=== PATIENT | male | born 1935 | race Caucasian/White ===

== ENCOUNTER 2017-11-26 13:33 | Emergency (ER) | payer MEDICARE, SELFPAY ==
[2017-11-26 13:34] VITALS: BP 135/66; PULSE 139; RESP 16; TEMP 38.1; O2SAT 92; BMI 27.1
--- NOTE | 2017-11-26 13:59 | EKG12_ITS ---
Test Reason : DYSRHYTHMIA Blood Pressure : / mmHG Vent. Rate : 127 BPM Atrial Rate : 127 BPM P-R Int : 156 ms QRS Dur : 090 ms QT Int : 300 ms P-R-T Axes : 069 066 040 degrees QTc Int : 436 ms Sinus tachycardia Otherwise normal ECG Confirmed by JUAN MIGUEL PEÑA ([id number]), assistant film editor JANELLE PENA ([id number]) on 11/29/2017 1:18:47 PM Referred By: Lisa Robles Confirmed By:JUAN MIGUEL PEÑA
--- NOTE | 2017-11-26 14:02 | RAD_ITS ---
STUDY: X-RAY CHEST REASON FOR EXAM: Male, 82 years old. Diarrhea, vomiting and fever. TECHNIQUE: Single AP portable view of the chest. COMPARISON: CT of the chest dated November 26, 2017. FINDINGS: There is hyperinflation of the lungs consistent with chronic obstructive lung disease (COPD). There is mild prominence of bronchovascular markings. There is no demonstrated pleural abnormality. Normal size heart. Normal mediastinum and lisa. There is prominence of the pulmonary hilar arteries without peripheral pulmonary vascular congestion. There is atherosclerotic calcification of the aortic arch with tortuosity. Normal visualized thoracic spine. Normal visualized ribs, clavicles, and shoulders. There is no demonstrated abnormality of the visualized soft tissue structures of the upper abdomen. RAD/Chest 1 View (Portable) IMPRESSION: No radiographic evidence of acute cardiopulmonary disease. Electronically Signed: Kiki Thacker MD at 15:26 EST , Service support ,
--- NOTE | 2017-11-26 14:03 | ED.VISSUMM ---
- ER Visit Summary Date of Service: 11/26/17 Chief Complaint: Vomiting and diarrhea History of Present Illness: The patient is a 82 M is presenting with vomiting and diarrhea. He states this began around 3 AM. He has had approximately 12 episodes of both vomiting and diarrhea. He denies abdominal pain. Denies blood in his stool or emesis. Denies recent travel or antibiotics. Denies sick contacts. Denies possibility of bad food exposure. Denies chest pain or shortness of breath. He has had subjective fever and chills. Physical Examination: Heart rate 139, temperature 100.5, pulse ox 92% on room air Alert no acute distress. HEENT exam is unremarkable. Neck is supple. Lungs are clear and equal bilaterally. Heart is regular and tachycardic Abdomen is soft nontender nondistended. No guarding or rebound Extremities are unremarkable. Skin is warm and dry. No focal neurologic deficit. Remainder of exam is unremarkable. Emergency Department Course and Treatment: Patient is given IV fluids, Tylenol, Zofran. CBC shows platelet count 138 which is similar to previous. Chemistries unremarkable other than glucose 125. Liver lipase are normal. Urinalysis is unremarkable. Troponin is negative. EKG was sinus tachycardia rate 127. Lactic acid was 2.0. Chest x-ray shows no acute process. After IV fluids patient is feeling much improved. He is able to tolerate p.o. in the emergency department. His repeat heart rate is 100. His abdomen continues to be soft and nontender. He is requesting to go home. He is given a prescription for Zofran. He is advised to follow-up with his primary care physician. He is advised return to ED for any worsening complaints. Disposition: Discharge home Impression: Vomiting and diarrhea This note was generated with [employer] dictation software. It may contain incorrect words, spelling, and punctuation that were not noted in review of the chart prior to signing ED Disposition - Plan for ED Patient: Chief Complaint: Nausea/Vomiting/Diarrhea Referrals: Kelsey Pulido DO [Primary Care Provider] -
[2017-11-26 14:16] LABS: Absolute Lymphocyte Count 0.46 X10^3/ul (0.83-4.51); Absolute Neutrophil Count 9.7 X10^3/uL (2.0-7.7); Eosinophil# 0.01 X10^3/uL; Eosinophils% 0.1 % (0-5); Hematocrit 51.8 % (40-54); Lymphocyte # 0.46 X10^3/ul (4.0); Lymphocyte % 4.4 % (19-41); Mean Corp Hgb Conc 34.7 g/gl (32-36); Mean Corpuscular Hgb 31.9 pg (27.0-32.0); Mean Corpuscular Volume 91.8 fL (80-94); Mean Platelet Vol. 9.9 fl (6.2-12.0); Monocyte# 0.32 X10^3/uL; Monocyte% 3.1 % (0-10); Neutrophil # 9.66 X10^3/uL (2.7-7.7); Neutrophil % 92.2 % (47-70); Platelet Count 138 K/mm3 (150-450); RBC Distribution Width CV 12.9 % (11.6-14.6); RBC Distribution Width SD 42.7 fl (35.1-43.9); Red Blood Count 5.64 M/mm3 (4.6-6.2); White Blood Count 10.5 K/mm3 (4.4-11.0)
[2017-11-26] MEDS: 0.9% Normal Saline 1,000 ML 1000 ML IV (14:17)
[2017-11-26] MEDS: Acetaminophen 500 MG Tablet 1000 MG PO (14:17)
[2017-11-26] MEDS: Ondansetron 4 MG/2 ML Vial IV (14:17)
--- NOTE | 2017-11-26 14:18 | NURSING ---
NO LW OR POA
[2017-11-26 14:20] LABS: Differential Indicated SCAN CRITERIA MET; POSITIVE COUNT NO; POSITIVE DIFFERENTIAL YES; POSITIVE MORPHOLOGY NO
[2017-11-26 14:32] LABS: AST(SGOT) 23 U/L (15-37); Alanine Aminotransfer ALT/SGPT 24 U/L (16-61); Albumin, Serum 3.8 g/dL (3.2-5.0); Alkaline Phosphatase 76 U/L (45-117); Anion Gap 13 (5-15); BUN 17 mg/dL (7-18); BUN/Creat Ratio 13.6 RATIO (10-20); Calcium,Total 8.4 mg/dL (8.5-10.1); Chloride 102 mmol/L (98-107); Creatinine, Serum 1.25 mg/dL (0.70-1.30); EST Glomerular Filtration Rate 59 mL/min (>60); Est Glom Filt Rate - Afr Amer 71 mL/min (>60); Estimated Creatinine Clearance 50.87 ml/min; Globulin 3.7 g/dL (2.2-4.2); Glucose 125 mg/dL (74-106); Lipase 145 U/L (73-393); Potassium 4.1 mmol/L (3.5-5.1); Protein, Total 7.5 g/dL (6.4-8.2); Sodium Level 140 mmol/L (136-145)
[2017-11-26 15:11] LABS: Bacteria 0 SEEN /hpf (None Seen)
[2017-11-26 15:15] LABS: Color, Urine Yellow (Yellow); Glucose, Dipstick Normal (Normal); Ketone-Dipstick 5 mg/dl (Negative); Leukocyte Esterase-Dipstick 25 /ul (Negative); Nitrite-Dipstick Negative (Negative); Occult Blood-Urine 25 /ul (Negative); Protein-Dipstick 30 mg/dl (Negative); Urine Clarity Clear (Clear); Urine Urobilinogen Normal (Normal)
[2017-11-26 15:18] LABS: Urine Bilirubin Dipstick 1 mg/dL (Negative)
[2017-11-26 15:23] LABS: Hyaline Cast 0-5 SEEN /lpf (0-5); Mucous, Urine 3+ /hpf (<or=2+)
[2017-11-26 15:24] LABS: Red Blood Cells-Urine 0-5 SEEN /hpf (0-5); White Blood Cells 0-5 SEEN /hpf (0-5)
[2017-11-26 15:25] LABS: Squamous Epithelial Cells - UA 0-5 SEEN /hpf (0-5)
[2017-11-26 16:34] VITALS: BP 109/56; PULSE 114; RESP 16; O2SAT 94
[2017-11-26] MEDS: 0.9% Normal Saline 1,000 ML 999 ML IV (16:34)
--- NOTE | 2017-11-26 17:10 | ED.DEP ---
ED Disposition - Plan for ED Patient: Chief Complaint: Nausea/Vomiting/Diarrhea Instructions: ED Vomiting Diarrhea Nonspecific Ad Prescriptions: Ondansetron [Zofran Odt] 4 mg PO Q8H PRN PRN #10 tablet PRN Reason: Nausea Referrals: Kelsey Pulido DO [Primary Care Provider] -
[2017-11-26 17:31] VITALS: BP 106/50; PULSE 107; RESP 19; O2SAT 93
[2017-11-26 17:41] VITALS: BP 106/50; PULSE 104; RESP 16; O2SAT 93
[2017-11-26 18:10] LABS: Reflex Lactate? Y
[2017-11-28 16:06] LABS: Pathologist Review Reviewed
== END 2017-11-26 17:42 | disposition home or self-care (01) ==
LOC: ED 14:31
PROVIDERS: Emergency Provider Emergency Medicine; Family Provider Internal Medicine; PCP Internal Medicine
DX: R11.10 Vomiting, unspecified (principal); R19.7 Diarrhea, unspecified; I25.10 Atherosclerotic heart disease of native coronary artery without angina pectoris; I10 Essential (primary) hypertension; E78.00 Pure hypercholesterolemia, unspecified; K21.9 Gastro-esophageal reflux disease without esophagitis; Z79.01 Long term (current) use of anticoagulants; Z79.82 Long term (current) use of aspirin; Z79.899 Other long term (current) drug therapy
CPT/HCPCS: 71045; 80053; 81001; 83605; 83690; 84484; 85025; 93005; 96361; 96374; 99285; J7030; A4216; J2405

== ENCOUNTER → 2017-11-30 10:16 | Outpatient (CLI) | payer MEDICARE, SELFPAY ==
[2017-11-09 09:50] VITALS: BP 112/76; BMI 28.2
--- NOTE | 2017-11-30 10:19 | ECHOD_ITS ---
Reason For Study: PULMONARY ARTERY MASS Procedure This was a 2D Doppler, Color Flow transthoracic echocardiogram. Exam performed in department. Left Ventricle Normal LV size. Left ventricular systolic function is normal. The estimated ejection fraction is 55 %. Transmitral and pulmonary venous doppler flow suggestive of impaired relaxation of left ventricle. No regional wall motion abnormalities noted. Right Ventricle Normal RV size. Normal systolic function. Atria Normal left atrium. Normal right atrium. Mitral Valve Normal mitral valve. Mild (1+) eccentric mitral valve insufficiency. Tricuspid Valve Normal tricuspid valve. Mild (1+) tricuspid valve insufficiency. Pulmonary artery systolic pressure is 26 mmHg. Aortic Valve Normal aortic valve. Trisinus/trileaflet aortic valve. Pulmonic Valve Normal pulmonic valve. Great Vessels Normal aortic root. The pulmonary artery is normal size. Normal inferior vena cava. Pericardium/Pleural No pericardial effusion. MMode/2D Measurements & Calculations LVIDd: 4.5 cm IVSd: 1.1 cm Ao root diam: 3.8 cm LVIDs: 3.0 cm LVPWd: 1.1 cm LA dimension: 3.7 cm RVDd: 3.8 cm FS: 32.9 % LAV(MOD-bp): 39.8 ml EDV(MOD-sp4): 102.2 ml EDV(MOD-sp2): 100.9 ml LAV(MOD-bp) Indexed: 18.7 ml/m2 ESV(MOD-sp4): 48.2 ml EF(MOD-sp2): 52.4 % LAV(MOD-sp2): 34.3 ml EF(MOD-sp4): 52.8 % LAV(MOD-sp4): 43.1 ml SV(MOD-sp4): 54.0 ml SV(MOD-sp2): 52.9 ml LA A4 area: 16.4 cm2 RA A4 area: 14.0 cm2 Doppler Measurements & Calculations MV E max delia: 54.8 cm/sec Ao V2 max: 87.0 cm/sec LV V1 max: 84.2 cm/sec MV A max delia: 56.9 cm/sec Ao max P.0 mmHg LV V1 max P.8 mmHg MV E/A: 0.96 PA V2 max: 130.8 cm/sec PI end-d delia: 108.0 cm/sec TR max delia: 234.8 cm/sec TR max P.1 mmHg Interpretation Summary Normal LV size. Left ventricular systolic function is normal. The estimated ejection fraction is 55 %. Transmitral and pulmonary venous doppler flow suggestive of impaired relaxation of left ventricle Mild (1+) eccentric mitral valve insufficiency. Ordering Physician: Felicita Zhou/Avni Mendozaori Referring Physician: AMADA VENEGAS Performed By: Fern Ramirez, RDCS, RVT
== END ==
PROVIDERS: Family Provider Internal Medicine; PCP Internal Medicine; Visit Provider Physician Assistant Medical
DX: I25.10 Atherosclerotic heart disease of native coronary artery without angina pectoris (principal)
CPT/HCPCS: 93306

== ENCOUNTER → 2018-07-06 10:15 | Outpatient (CLI) | payer MEDICARE, SELFPAY ==
--- NOTE | 2018-07-06 10:18 | RAD_ITS ---
STUDY: X-RAY - PELVIS AND LEFT HIP REASON FOR EXAM: Male, 83 years old. Left hip pain radiating down the back of the upper leg with no known injury. TECHNIQUE: Radiological exam, hip, unilateral, with pelvis when performed; 2 or 3 views. COMPARISON: Hip 09/20/2014, 07/17/2013.. FINDINGS: Osteopenia. Mild low lumbar degenerative disc disease and facet arthropathy. No significant degenerative features of the SI joints. No visible fracture. On the right, there is moderate joint space narrowing, mild acetabular roof and femoral head articular surface sclerosis, minimal superior acetabular corner subcortical cyst formation, minimal joint margin osteophytic lipping. There is a small cortical buttress along the superior margin of the femoral head neck junction giving the femoral head a cam shaped appearance which might be seen in some cases with femoral acetabular impingement. Correlate clinically. On the left, there is mild joint space narrowing, minimal acetabular sclerosis and acetabular corner subcortical cyst formation, mild joint margin osteophytosis. There is a small cortical buttress of the femoral head neck junction superiorly which might be associated with femoral acetabular impingement in some cases. There is no evidence of hip or proximal femur fracture. RAD/HIP, UNI W/ Pelvis 2-3 Views IMPRESSION: Degenerative features of the right and left hip as noted above, of greater degree on the right. Low lumbar degenerative disc disease. Electronically Signed: Toy Phillips, at 18:03 EDT Tel , Service support ,
== END ==
PROVIDERS: Family Provider Nurse Practitioner; PCP Nurse Practitioner; Referring Provider Nurse Practitioner Gerontology; Visit Provider Nurse Practitioner Gerontology
DX: R69 Illness, unspecified (principal)
CPT/HCPCS: 73502

== ENCOUNTER 2018-07-11 10:00 | Outpatient (RCR) | payer MEDICARE, SELFPAY ==
--- NOTE | 2018-07-06 12:25 | HP.PTEVAL ---
Patient's Visit Information PATIENCE MERCEDES is a 83 year old M referred to Physical Therapy by JAYSHREE Drake with a diagnosis of L hip pain. Date of Evaluation: 07/06/18 Physical Therapist: Mike Iyer DPT, OC - Visit Plan Frequency: 2-3x /Week Duration: 4 Weeks Plan: 2-3x/week if needed for up to 4 weeks. Will f/u early next week once patient out of inflammatory phase... if doing much better, then will instruct in strength and f/u . If not improving then do US thermal and DTM to L glut and stretch and see 2-3x/week for 2-4. - Subjective Subjective: L hip went out for no reason. Two days ago L hip just started hurting after cleaning hosta bed, cut some tree tops that morning, came home and sat in chair and it started hurting while sitting. Those activitiesd are not new but not common either. No previous problems with L hip. Called doctor and walked in and had an x ray one hour ago and sent for PT. No meds . Is improving since Tuesday night. Took ibuprofen once. Can walk and get out of car and turn in bed without pain. Pivotting on L hip hurts but walking and squatting are OK. Sleep is good. Can turn and get coffee cup PK. Hesitant to try andything else. Pain is sudden and transient. Retired. Activitesd include working around yard. Has been overly careful the last two days. Basic aDLs are normal. - Pain L hip posterior Pain Intensity (Out of 10): 0 Pain Intensity Range: 0, 5 - Objective L glut tender to palpation up by pelvic attachment. LB AROM mod limited but not painful. Has L antalgic gait slightly. Transfers I and painfree. Hip AROM is symmetrical and without pain, PROM is painfree in rotations and ext, flexion abd. Extension is limited and tight B with 0 degrees acive hip extension, slight pain with extension L. Max tightness in hip flexor and quad, min in HS B. Strength is 4/5 in all hip and knee muscles B and only slight discomfort posteriorly at glut med origin with abd and extension. Hurts most to pivot on L or abduct and step L. - MARCY, - LESLYEIR, -SCOUR to L Hip. Good balance. - Goals Goal 1:: Tenderness to palpation eliminated. Goal Time Frame: 2-4 Weeks Goal 2:: Patient walk without antalgia and pivot/sidestep without pain L hip Goal Time Frame: 2-4 Weeks Goal 3:: Pt feel 100% back to normal Goal Time Frame: 4-6 Weeks - Rehabilitation Potential Physical Therapy Diagnosis: L hip pain likely glut med inflammation. Rehabilitation Potential: Good - Anticipated Interventions Patient/Client Instruction: Educate patient on: Condition, Plan of Care For the Purpose of:: To decrease pain, To improve gait and locomotor functions Therapeutic Exercise to Include: Strength training, Flexibilty training For the Purpose of:: To decrease pain, To improve gait and locomotor functions Manual Therapy Techniques to Include: Massage For the Purpose of:: To decrease pain, To improve nutrient delivery to tissue Ultrasound (thermal/non thermal): Yes - thermal gluts For the Purpose of:: To improve nutrient delivery to tissue Thank you for the opportunity to evaluate your patient. For Medicare and Medicare HMO plans, please review the plan of care and approve it. It will need to be FAXED BACK to us at [phone] for Medicare purposes. Please let me know if there are questions or concerns regarding this plan of care. Physician Signature: Date:
--- NOTE | 2018-09-15 14:33 | HP.PT.NRP ---
HP - Discharge Summary (1) - Patient Information PATIENCE MERCEDES was seen in my office for initial evaluation on 07/06/18. The following Plan of Care was established for this patient: Initial Frequency: 2-3x /Week Initial Duration: 4 Weeks - Anticipated Interventions Patient/Client Instruction: Educate patient on: Condition, Plan of Care For the Purpose of:: To decrease pain, To improve gait and locomotor functions Therapeutic Exercise to Include: Strength training, Flexibilty training For the Purpose of:: To decrease pain, To improve gait and locomotor functions Manual Therapy Techniques to Include: Massage For the Purpose of:: To decrease pain, To improve nutrient delivery to tissue Ultrasound (thermal/non thermal): Yes - thermal gluts For the Purpose of:: To improve nutrient delivery to tissue This patient was last seen in our office 07/11/18. Pertinent comments regarding their Physical therapy will appear below: Pt seen for 2 visits and was doing very well. Was to f/u two weeks later but did not return. At this point it has been over two months and I will disocntinue due to nonattendance. At this point I will be discontinuing this patient from physical therapy. I would be happy to see this patient again in the future if found appropriate by the physician. Thank you! Mike Iyer, DPT, OCS, CSCS
== END 2018-07-11 19:00 | disposition home or self-care (01) ==
LOC: PT 10:00
PROVIDERS: Family Provider Internal Medicine; PCP Nurse Practitioner; Referring Provider Nurse Practitioner Gerontology; Visit Provider Nurse Practitioner Gerontology
DX: M25.552 Pain in left hip (principal); S79.9 Unspecified injury of hip and thigh; R69 Illness, unspecified
CPT/HCPCS: 73502; 97110; 97162; 97530

== ENCOUNTER 2019-01-02 09:20 | Emergency (ER) | payer MEDICARE, SELFPAY ==
[2019-01-02 09:20] VITALS: BMI 28.2
[2019-01-02 09:21] VITALS: BP 112/58; PULSE 134; RESP 15; TEMP 37.3; O2SAT 96; BMI 28.5
--- NOTE | 2019-01-02 09:53 | CT_ITS ---
STUDY: CT ABDOMEN AND PELVIS WITH CONTRAST REASON FOR EXAM: Male, 83 years old. Nausea vomiting and diarrhea. RADIATION DOSAGE (If Supplied By Facility): CTDIvol = ( 15.61 ) mGy, DLP = ( 1077.31 ) mGycm TECHNIQUE: Transaxial images were obtained from the dome of the diaphragm to the symphysis pubis without oral contrast. 100ML IV Isovue 300 was administered. Sagittal and coronal images were reconstructed. Individualized dose optimization techniques were used for this CT. COMPARISON: Comparison is made with prior study dated November 25, 2011. FINDINGS: The visualized lung bases are unremarkable. The visualized portions of the heart are within normal limits. Multiple small cysts are seen in the liver. Once again, there is a 1.2 cm x 2 cm area of increased vascularity in the posterior aspect of the right lobe liver superiorly. This most likely represents an hemangioma. The patient is status post cholecystectomy. There are multiple benign calcified granulomata of the spleen. Normal pancreas. Normal bilateral adrenal glands. Normal right kidney. There is a 1.8 cm cyst in the lateral posterior aspect of the left kidney. There is also evidence of a 4 cm cyst in the inferior lateral portion of the left kidney. Parapelvic cysts are stable. Moderate sized hiatal hernia. Normal small intestine. Diffuse colonic diverticulosis. The appendix is visualized and appears normal. There is diffuse atherosclerotic calcification of the abdominal aorta, without a demonstrated aneurysm. Normal inferior vena cava. Normal retroperitoneum. Normal urinary bladder. There is enlargement of the prostate gland. It measures 4 cm x 4.8 cm. There is a right-sided inguinal hernia containing adipose tissue. There is a 2.2 cm x 2.1 cm slightly ill-defined hypodense nodule in the right inguinal region. This was not present on prior study. Clinical correlation is recommended. There are diffuse degenerative changes of the visualized lumbar spine. CT/Abdomen/Pelvis W IV Cont ONLY IMPRESSION: Diffuse colonic diverticulosis. Stable bilateral renal cysts. Stable hepatic cysts and possible hemangioma in the right lobe of the liver. 2.2 cm x 2.1 cm irregular hypodense nodule in the right inguinal region. Electronically Signed: Ganesh Kent, at 11:20 EDT , Service support ,
--- NOTE | 2019-01-02 09:58 | EKG12_ITS ---
Test Reason : NAUSEA Blood Pressure : / mmHG Vent. Rate : 126 BPM Atrial Rate : 126 BPM P-R Int : 146 ms QRS Dur : 092 ms QT Int : 306 ms P-R-T Axes : 064 070 046 degrees QTc Int : 443 ms Sinus tachycardia Otherwise normal ECG Confirmed by JUAN MIGUEL PEÑA ([id number]), editor trade journal BERTA VANCE ([id number]) on 01/05/2019 11:14:47 AM Referred By: IRISH Confirmed By:JUAN MIGUEL PEÑA
[2019-01-02] MEDS: 0.9% Normal Saline 1,000 ML 1000 ML IV (10:12)
[2019-01-02] MEDS: Ondansetron 4 MG/2 ML Vial IV (10:12)
[2019-01-02 10:17] LABS: Absolute Lymphocyte Count 0.45 X10^3/ul (0.83-4.51); Absolute Neutrophil Count 8.2 X10^3/uL (2.0-7.7); Basophil# 0.01 X10^3/uL; Basophil% 0.1 % (0-1); Hematocrit 50.9 % (40-54); Hemoglobin 17.7 g/dl (13.0-16.5); Lymphocyte # 0.45 X10^3/ul (4.0); Mean Corp Hgb Conc 34.8 g/gl (32-36); Mean Corpuscular Hgb 31.9 pg (27.0-32.0); Mean Corpuscular Volume 91.7 fL (80-94); Mean Platelet Vol. 9.9 fl (6.2-12.0); Monocyte% 3.3 % (0-10); Neutrophil # 8.19 X10^3/uL (2.7-7.7); Neutrophil % 91.5 % (47-70); Platelet Count 125 K/mm3 (150-450); RBC Distribution Width SD 43.4 fl (35.1-43.9); Red Blood Count 5.55 M/mm3 (4.6-6.2)
[2019-01-02 10:22] LABS: Differential Indicated SCAN CRITERIA MET; POSITIVE COUNT NO; POSITIVE DIFFERENTIAL YES; POSITIVE MORPHOLOGY NO
[2019-01-02 10:31] LABS: ALB/GLOB Ratio 1.1 RATIO (0.9-2.4); AST(SGOT) 19 U/L (15-37); Alanine Aminotransfer ALT/SGPT 25 U/L (16-61); Albumin, Serum 3.6 g/dL (3.2-5.0); Alkaline Phosphatase 64 U/L (45-117); Anion Gap 4 (5-15); BUN 19 mg/dL (7-18); Calcium,Total 8.2 mg/dL (8.5-10.1); Chloride 107 mmol/L (98-107); Creatinine, Serum 1.27 mg/dL (0.70-1.30); EST Glomerular Filtration Rate 58 mL/min (>60); Est Glom Filt Rate - Afr Amer 70 mL/min (>60); Estimated Creatinine Clearance 49.22 ml/min; Globulin 3.4 g/dL (2.2-4.2); Glucose 131 mg/dL (74-106); Lipase 84 U/L (73-393); Sodium Level 140 mmol/L (136-145)
--- NOTE | 2019-01-02 10:33 | ED.DCSUM_ITS ---
- ER Visit Summary Date of Service: 01/02/19 Chief Complaint: Vomiting and diarrhea History of Present Illness: The patient is a 83 M who woke up today around midnight and had vomiting and diarrhea. It was nonbloody. He felt nauseated and his says he was pale. No history of this. He was doing well prior to this. Nothing seems to bring it on. No sick contacts. No other associated symptoms. He does have a history of hiatal hernia and hernia repair which was 2 years ago. He takes aspirin but no other blood thinners. No fevers. No travel. No antibiotics. Physical Examination: Afebrile and vital signs unremarkable except for heart rate of 134. The patient is alert and oriented and does not appear to be in any distress. Heart is tachycardic but regular. Lungs are clear. Abdomen is soft and nontender. No distention, guarding, or rebound. Skin appears normal without jaundice or pallor. Test Results: EKG showed sinus rhythm at a rate of 126. No signs of acute ischemia or infarction pattern. Laboratory studies, urinalysis, and CT are pending. Emergency Department Course and Treatment: Patient treated with Zofran and a fluid bolus while awaiting notes. Will reassess. Repeat heart rate was 107. Patient had no pain. No further vomiting or diarrhea. Otherwise his vitals were normal. Hemoglobin 17.7 and platelets stable at 125. Glucose 131 and BUN 19. Hepatic panel and lipase were normal. Urinalysis was unremarkable. CT showed diverticulosis, stable renal and hepatic cysts. He does have a right inguinal nodule of unclear significance. I do not believe it is related to his symptoms right now. Patient is feeling better and has a reassuring exam and findings. I believe he is appropriate for outpatient care. He will be given a course of Zofran. Follow-up with his PCP doctor for recheck and follow-up. Return for any new or worsening issues. Treatment Plan: As above Disposition: Discharge Impression: 1. Vomiting and diarrhea 2. Right inguinal nodule This note was generated with [employer] dictation software. It may contain incorrect words, spelling, and punctuation that were not noted in review of the chart prior to signing ED Disposition - Plan for ED Patient: Referrals: Lisa Robles, MANAS-C [Primary Care Provider] -
[2019-01-02 10:34] LABS: Color, Urine Yellow (Yellow); Glucose, Dipstick Normal (Normal); Ketone-Dipstick 5 mg/dl (Negative); Leukocyte Esterase-Dipstick 25 /ul (Negative); Nitrite-Dipstick Negative (Negative); Occult Blood-Urine 25 /ul (Negative); Protein-Dipstick 30 mg/dl (Negative); Urine Clarity Sl. Cloudy (Clear); Urine Urobilinogen Normal (Normal)
[2019-01-02 10:37] LABS: Urine Bilirubin Dipstick 1 mg/dL (Negative)
[2019-01-02 10:39] LABS: Red Blood Cells-Urine 0-5 SEEN /hpf (0-5); Squamous Epithelial Cells - UA 0-5 SEEN /hpf (0-5); White Blood Cells 0-5 SEEN /hpf (0-5)
[2019-01-02 10:40] LABS: Bacteria RARE /hpf (None Seen); Mucous, Urine 2+ /hpf (<or=2+)
[2019-01-02 10:55] VITALS: BP 123/60; PULSE 111; RESP 16; TEMP 37.2; O2SAT 94
[2019-01-02 11:25] VITALS: BP 121/75; PULSE 114; RESP 16; TEMP 37.2; O2SAT 97
[2019-01-02 11:26] VITALS: BP 121/75; PULSE 114; RESP 16; O2SAT 97
--- NOTE | 2019-01-02 12:05 | ED.DEP ---
ED Disposition - Plan for ED Patient: Instructions: ED Diet Vomiting Diarrhea Prescriptions: Ondansetron [Zofran Odt] 4 mg PO Q8H PRN PRN #10 tablet PRN Reason: Nausea Ondansetron [Zofran Odt] 4 mg PO Q8H PRN PRN #10 tab PRN Reason: Nausea Referrals: Lisa Robles, ASSISTIVE TECHNOLOGY TRAINER-C [Primary Care Provider] -
[2019-01-02 12:20] VITALS: PULSE 108; RESP 15; O2SAT 96
== END 2019-01-02 12:22 | disposition home or self-care (01) ==
LOC: ED 09:59
PROVIDERS: Emergency Provider Emergency Medicine; Family Provider Nurse Practitioner; PCP Nurse Practitioner
DX: R11.10 Vomiting, unspecified (principal); R19.7 Diarrhea, unspecified; R19.09 Other intra-abdominal and pelvic swelling, mass and lump; I25.10 Atherosclerotic heart disease of native coronary artery without angina pectoris; I10 Essential (primary) hypertension; Z79.82 Long term (current) use of aspirin; Z79.899 Other long term (current) drug therapy
CPT/HCPCS: 74177; 80053; 81001; 83690; 85025; 93005; 96361; 96374; 99283; J7030; Q9967; A4216; J2405

== ENCOUNTER → 2019-05-24 09:48 | Outpatient (CLI) | payer MEDICARE, SELFPAY ==
[2019-05-24 09:16] VITALS: BMI 26.7
[2019-05-24 10:43] LABS: AST(SGOT) 23 U/L (15-37); Alanine Aminotransfer ALT/SGPT 23 U/L (16-61); Albumin, Serum 3.5 g/dL (3.2-5.0); Alkaline Phosphatase 79 U/L (45-117); Bilirubin, Direct 0.13 mg/dL (0.00-0.30); Cholesterol 112 mg/dL (200); Globulin 3.9 g/dL (2.2-4.2); High Density Lipoprotein 31 mg/dL; Protein, Total 7.4 g/dL (6.4-8.2); Triglycerides 169 mg/dL; Very Low Density Lipoprotein 34 mg/dL (5-40)
== END ==
PROVIDERS: Family Provider Internal Medicine; PCP Internal Medicine; Referring Provider Internal Medicine Cardiovascular Disease; Visit Provider Internal Medicine Cardiovascular Disease
DX: E78.5 Hyperlipidemia, unspecified (principal)
CPT/HCPCS: 36415; 80061; 80076

== ENCOUNTER → 2020-05-20 09:00 | Outpatient (CLI) | payer MEDICARE, SELFPAY ==
[2019-05-24 09:16] VITALS: BMI 26.7
[2020-05-20 10:07] LABS: AST(SGOT) 29 U/L (15-37); Alanine Aminotransfer ALT/SGPT 24 U/L (16-61); Albumin, Serum 3.4 g/dL (3.2-5.0); Alkaline Phosphatase 71 U/L (45-117); Bilirubin, Direct 0.14 mg/dL (0.00-0.30); Cholesterol 116 mg/dL (200); Globulin 3.5 g/dL (2.2-4.2); High Density Lipoprotein 32 mg/dL; Protein, Total 6.9 g/dL (6.4-8.2); Triglycerides 141 mg/dL; Very Low Density Lipoprotein 28 mg/dL (5-40)
== END ==
PROVIDERS: PCP Internal Medicine; Referring Provider Internal Medicine Cardiovascular Disease; Visit Provider Internal Medicine Cardiovascular Disease
DX: E78.5 Hyperlipidemia, unspecified (principal)
CPT/HCPCS: 36415; 80061; 80076

== ENCOUNTER → 2020-06-18 06:48 | Outpatient (CLI) | payer MEDICARE, SELFPAY ==
[2020-05-27 10:25] VITALS: BMI 28.3
--- NOTE | 2020-06-18 06:48 | ECHOD_ITS ---
Reason For Study: Murmur Procedure This was a 2D Doppler, Color Flow transthoracic echocardiogram. Exam performed in department. Left Ventricle Normal LV size. Left ventricular systolic function is normal. The estimated ejection fraction is 60 %. Stage 1 diastolic dysfunction. No regional wall motion abnormalities noted. Right Ventricle Normal RV size. Normal systolic function. Atria Normal left atrium. Normal right atrium. Mitral Valve There is mild mitral annular calcification. Mild (1+) mitral valve insufficiency. Tricuspid Valve Normal tricuspid valve. Aortic Valve Normal aortic valve. Trisinus/trileaflet aortic valve. Pulmonic Valve Normal pulmonic valve. Great Vessels Normal aortic root. The pulmonary artery is normal size. Normal inferior vena cava. Pericardium/Pleural No pericardial effusion. MMode/2D Measurements & Calculations LVIDd: 3.3 cm IVSd: 1.7 cm Ao root diam: 3.7 cm LVIDs: 2.4 cm LVPWd: 1.3 cm LA dimension: 3.6 cm RVDd: 3.7 cm FS: 28.7 % LAV(MOD-bp): 46.6 ml LA A4 area: 17.1 cm2 RA A4 area: 19.8 cm2 LAV(MOD-bp) Indexed: 21.6 ml/m2 LAV(MOD-sp2): 46.4 ml LAV(MOD-sp4): 46.7 ml Time Measurements MV dec time: 0.19 sec Doppler Measurements & Calculations MV E max alexander: 41.7 cm/sec Lat Peak E' Alexander: 5.4 cm/sec Med Peak E' Alexander: 3.7 cm/sec MV A max alexander: 76.7 cm/sec E/E' lat: 7.7 E/E' med: 11.3 MV E/A: 0.54 MV V2 max: 81.5 cm/sec MV P1/2t max alexander: 51.1 cm/sec Ao V2 max: 63.4 cm/sec MV max P.7 mmHg MV P1/2t: 63.1 msec Ao max P.6 mmHg MV V2 mean: 42.1 cm/sec MV dec slope: 237.5 cm/sec2 MV mean P.89 mmHg MVA(P1/2t): 3.5 cm2 MV V2 VTI: 13.9 cm LV V1 max: 79.6 cm/sec MR max alexander: 498.7 cm/sec PA V2 max: 80.9 cm/sec LV V1 max P.5 mmHg MR max P.5 mmHg TR max alexander: 230.6 cm/sec TR max P.3 mmHg Interpretation Summary Normal LV size. Left ventricular systolic function is normal. The estimated ejection fraction is 60 %. Stage 1 diastolic dysfunction. Mild (1+) mitral valve insufficiency. There is mild mitral annular calcification. Ordering Physician: Avni Kaur Referring Physician: Lisa Robles Performed By: Johnie Plata RCS
--- NOTE | 2020-06-18 17:15 | STRESSREP ---
Stress Test Report Exercise myocardial perfusion stress test. 85-year-old man with a history of coronary artery disease. Stress protocol: Resting EKG demonstrates normal sinus rhythm with a rate of 77 bpm resting blood pressure is 130/78 mmHg. The patient exercised according to regular Evan protocol for total duration of 5 minutes and 30 seconds completing 2 minutes and 30 seconds into stage II of the Evan protocol. The maximum heart rate attained was 148 bpm which was 108% of max impacted heart rate the maximum workload was 7 metabolic equivalents. At rest there were no ST or T wave changes noted to suggest ischemia at peak exercise upsloping ST changes only were noted with no meet the criteria for ischemia. No clinical angina was noted the test was terminated due to shortness of breath. Myocardial perfusion protocol. 11.8 mCi of technetium 99m sestamibi was injected at rest. The patient exercised for 5-1/2 minutes and at peak exercise 33.4 mCi of technetium 99m sestamibi was injected stress images were obtained stress and rest images were reconstructed and compared in the short axis vertical long horizontal long axis. Gated images were also obtained. Perfusion SPECT analysis: Review of the images demonstrate normal uptake of tracer noted in all areas of the myocardium the resting images similar demonstrate normal uptake of tracer noted in all areas of the myocardium. No areas of reversibility are noted to suggest ischemia no previous infarct is noted. Gated SPECT analysis: The gated ejection fraction is noted to be 71%. Conclusion: Normal exercise myocardial perfusion stress test at a moderate workload. Preserved ejection fraction.
== END ==
PROVIDERS: PCP Nurse Practitioner; Referring Provider Internal Medicine Cardiovascular Disease; Visit Provider Internal Medicine Cardiovascular Disease
DX: I25.10 Atherosclerotic heart disease of native coronary artery without angina pectoris (principal)
CPT/HCPCS: 78452; 93017; 93306; A9500; A4216

== ENCOUNTER 2021-03-25 11:12 | Outpatient (RCR) | payer MEDICARE, SELFPAY ==
[2020-05-27 10:25] VITALS: BMI 28.3
--- NOTE | 2021-03-25 11:48 | HP.PTEVAL_ITS ---
Patient's Visit Information PATIENCE MERCEDES is a 86 year old M referred to Physical Therapy by JAYSHREE Orr with a diagnosis of vertigo. Date of Evaluation: 03/25/21 Physical Therapist: Mike Iyer, DPT, OCS, CSCS - Visit Plan Plan: No obvious signs of positonal or vestibular component to his vertigo. I recommend back to doctor for next medical step. Pt will contact doctor in next couple days for appointment and recommendations. He is to contact me if the characterization of his signs and symptoms changes for recheck. No skilled therapy recommended at this time. - Subjective Dizzy sometimes. Started 2 months ago insidiouslyafter cataracts operation. Since then has intermittent dizzyness. Now bending down, standing up, it can casue this for for short durations. feels pretty normal in between episodes. Not sleeping good. Not sure why, tries ibuprofen to relax mind, maybe anxious. No falls , no balance problem, no neuropathy. sees foot doctor and he clips toenails, harder to feel today though. Basic ADLS are normal. Hobbies : none, enjoys walking and still does that one mile. Not employed. - Objective Walks normal without AD into and out of PT, no evidence of imbalance. Trasnfers normal without UE. steps reciprocal without a rail. cervical aROM WFL and without symptoms or pain. UE AROM WNL, strength 4- and symetrical. Sensation UE WNL to gross light touch. LE slightly at deficit distally. Balance seems very good. Romberg eo and ec 30+ seconds. - B hallpike daljit tests, - roll test, no nystagmus or dizzyness. No MSQ positions casuie dizzyness today, I am unable to ellicit it. Oculomotor is unremarkable: no nystgmus with gaze or head shake. ocular tilt and skew eye deviation are normal. - head thrust. Pursuit and saccades appear normal with out symptoms. VOR horiz and vertical is normal without symptoms. No facial paralysis obvious, no evidence of problems with taste or smell. OVERALL, PT IS WITHOUT SYMPTOMS TODAY AND I AM UNABLE TO ELLICIT THEM. NO OBVIIOUS SIGNS OF BPPV OR VESTIBULAR DYSFUNCTION TODAY. - Balance Scores Functional Gait Assessment Score: 28 % Disability: 6.6700 - Rehabilitation Potential Physical Therapy Diagnosis: No evidence of vestibular component - Anticipated Interventions Thank you for the opportunity to evaluate your patient. For Medicare and Medicare HMO plans, please review the plan of care and approve it. It will need to be FAXED BACK to us at [phone] for Medicare purposes. For Medicare only, by signing this I certify the plan of care. Please let me know if there are questions or concerns regarding this plan of care. Physician Signature: Date:____
== END 2021-03-25 19:00 | disposition home or self-care (01) ==
LOC: PT 11:12
PROVIDERS: PCP Nurse Practitioner; Referring Provider Nurse Practitioner; Visit Provider Nurse Practitioner
DX: R42 Dizziness and giddiness (principal)
CPT/HCPCS: 97161

== ENCOUNTER → 2021-04-27 14:11 | Outpatient (CLI) | payer MEDICARE, SELFPAY ==
[2020-05-27 10:25] VITALS: BMI 28.3
--- NOTE | 2021-04-27 14:23 | CT_ITS ---
STUDY: CTA OF THE ABDOMINAL AORTA AND BILATERAL LOWER EXTREMITIES REASON FOR EXAM: Male, 86 years old. Peripheral vascular disease. RADIATION DOSAGE (If Supplied By Facility): CTDIvol = ( 7.4 ) mGy, DLP = ( 1412.76 ) mGycm TECHNIQUE: Axial CT angiography multi-detector data acquisition was obtained from the dome of the liver to the ankles following intravenous administration of IV 100mL Isovue-370. Axial images and MIP images were reconstructed from the axial data set. Post-processing of the angiographic images was performed, with multiplanar reformation and 3D reconstruction. Individualized dose optimization techniques were used for this CT. TECHNICAL QUALITY: Good COMPARISON: None. Descriptors of Narrowing: None (0%) Mild (< 50%) Moderate (50-70%) Severe (70-90%) Subtotal/Total Occlusion (90-100%) Non-Evaluable (technically non-diagnostic FINDINGS: Minimal degree of bibasilar atelectasis. Small hiatal hernia. 2 small cysts are seen in the left lobe of the liver. The patient is status post cholecystectomy. There is a 4.3 cm x 3.7 cm cyst in the midpole of the left kidney. Abdominal aorta: Mild degree of the calcific plaques. Celiac and superior mesenteric arteries: Mild degree of a calcific plaque at the origin of the celiac artery and superior mesenteric artery. Inferior mesenteric artery: No demonstrated narrowing. Right renal artery(arteries): Mild degree of atherosclerotic plaque at the origin of the right renal artery. Left renal artery(arteries): Mild degree of calcific plaque at the origin of the left renal artery. Right common iliac artery: No demonstrated narrowing. Right external iliac artery: No demonstrated narrowing. Right internal iliac artery: No demonstrated narrowing. Left common iliac artery: No demonstrated narrowing. Left external iliac artery: No demonstrated narrowing. Left internal iliac artery: No demonstrated narrowing. RIGHT LOWER EXTREMITY Right common femoral artery: No demonstrated narrowing. Right profundus femoris: No demonstrated narrowing. Right superficial femoral: No demonstrated narrowing. Right popliteal artery: No demonstrated narrowing. Right tibioperoneal trunk: No demonstrated narrowing. Right anterior tibial artery: No demonstrated narrowing. Right posterior tibial artery: No demonstrated narrowing. Right peroneal artery: No demonstrated narrowing. LEFT LOWER EXTREMITY Left common femoral artery: No demonstrated narrowing. Left profundus femoris: No demonstrated narrowing. Left superficial femoral: No demonstrated narrowing. Left popliteal artery: No demonstrated narrowing. Left tibioperoneal trunk: No demonstrated narrowing. Left anterior tibial artery: Decreased flow in the anterior tibial artery. Left posterior tibial artery: Calcific plaques in the mid and distal portion of the left posterior tibial artery with decreased flow distally. Left peroneal artery: No demonstrated narrowing. CT/CTA Abd w/Runoff W/WO Contrast IMPRESSION: Nonstenotic atherosclerotic plaques of the abdominal aorta. Decreased flow in the left anterior tibial and left posterior tibial arteries. Electronically Signed: Ganesh Kent MD at 20:39 EDT , Service support ,
[2021-04-27 14:35] LABS: CREATININE FINGERSTICK 0.8 mg/dL (0.70-1.30); EGFR FINGERSTICK > 60.0000 mL/min (>60)
== END ==
PROVIDERS: PCP Nurse Practitioner; Referring Provider Internal Medicine; Visit Provider Internal Medicine
DX: I73.9 Peripheral vascular disease, unspecified (principal)
CPT/HCPCS: 75635; Q9967

== ENCOUNTER → 2021-06-05 09:38 | Outpatient (CLI) | payer MEDICARE, SELFPAY ==
--- NOTE | 2021-06-05 09:40 | CDU_ITS ---
Reason For Study: DIZZINESS Rt. Velocities/BP Lt. Velocities/BP Prox CCA 102.5/11.2 cm/sec. Prox CCA 96.6/21.7 cm/sec. Mid CCA 101.2/17.7 cm/sec. Mid CCA 96.6/16.3 cm/sec. Dist CCA 64.7/12.5 cm/sec. Dist CCA 100.3/16.3 cm/sec. Prox ICA 50.0/16.0 cm/sec. Prox ICA 76.5/14.4 cm/sec. Mid ICA 81.8/26.1 cm/sec. Mid ICA 53.7/15.3 cm/sec. Dist ICA 84.6/25.1 cm/sec. Dist ICA 51.9/16.9 cm/sec. Rt. ICA/CCA = 84.6/101.2=0.8. Lt. ICA/CCA = 0.8. Prox ECA 80.3/6.0 cm/sec. Prox ECA 85.8/6.0 cm/sec. Rt. Vert. 42.8/13.0 cm/sec. Lt. Vert. 49.3/14.2 cm/sec. Right Extracranial There is intimal thickening but no significant atherosclerotic plaque noted in the right common carotid artery. There is heterogeneous, smooth atherosclerotic plaque noted in the right internal carotid artery. There is intimal thickening but no significant atherosclerotic plaque noted in the right external carotid artery. Antegrade flow is noted in the right vertebral artery. Left Extracranial There is intimal thickening but no significant atherosclerotic plaque noted in the left common carotid artery. There is intimal thickening but no significant atherosclerotic plaque noted in the left internal carotid artery. The left internal carotid artery is very tortuous. The atherosclerotic plaque causes acoustic shadowing. There is intimal thickening but no significant atherosclerotic plaque noted in the left external carotid artery. The left external carotid artery is tortuous. The atherosclerotic plaque causes acoustic shadowing. Antegrade flow is noted in the left vertebral artery. Procedure Carotid Duplex 42316. This is a Carotid Duplex examination using B-mode, color flow and specral Doppler. The study was technically difficult. Exam performed in department. VL/Carotid Duplex Ultrasound Interpretation Summary Minimal smooth plaque in the proximal right internal carotid artery with less t almonte 50% stenosis. Less than 50% stenosis right external carotid artery Minimal smooth plaque involving the left proximal internal carotid artery with significant tortuosity of the left internal and external carotid arteries Less than 50% stenosis left internal carotid artery l Less than 50% stenosis left external carotid artery Patent and antegrade vertebral arteries bilaterally Technically challenging examination Ordering Physician: Felicita Zhou Referring Physician: Lisa Robles Performed By: Ritika Chapman, BLANCA, RVT
== END ==
PROVIDERS: PCP Nurse Practitioner; Visit Provider Physician Assistant Medical
DX: R42 Dizziness and giddiness (principal); I73.9 Peripheral vascular disease, unspecified; I25.10 Atherosclerotic heart disease of native coronary artery without angina pectoris
CPT/HCPCS: 93880

== ENCOUNTER 2022-04-02 11:27 | Observation (INO) | payer MEDICARE, SELFPAY ==
[2022-04-02] VITALS (7 sets, daily range): BP systolic 130–148; BP diastolic 73–87; PULSE 63–78; RESP 16–18; TEMP 36.7–37.1; O2SAT 95–96; BMI 26.6
--- NOTE | 2022-04-02 12:02 | EKG12_ITS ---
Test Reason : CP Blood Pressure : / mmHG Vent. Rate : 077 BPM Atrial Rate : 077 BPM P-R Int : 160 ms QRS Dur : 096 ms QT Int : 392 ms P-R-T Axes : 114 123 116 degrees QTc Int : 443 ms Suspect arm lead reversal, interpretation assumes no reversal Normal sinus rhythm Left posterior fascicular block Consider repeat ECG Abnormal ECG Confirmed by LEESA CARRILLO, PUMA ([id number]), web editor BERTA VANCE ([id number]) on 04/06/2022 10:11:57 AM Referred By: Confirmed By:PUMA LANDERS MD
--- NOTE | 2022-04-02 12:03 | ED.VIS.CHEST ---
HPI History of Present Illness Chief Complaint: Chest Pain Informant: patient and spouse/S.O. Onset/Context/Timing Onset: Weeks (a couple) Activity at onset: sudden, activity on onset and rest (usually) Timing: Intermittent and Lasts (brief) Quality: Positive for Heaviness Location: Substernal (without radiation) Current Severity: Gone Maximum Severity: Severe Worsened By: Nothing Relieved By: Nothing Associated Symptoms: Positive for Diaphoresis and Lightheadedness; Negative for Nausea, Dyspnea, Cough, Fever or Palpitations Narrative Narrative: Patient states he has been having episodes for the last couple weeks similar to this, this was unbeknownst to the however. Today had a severe episode while he was driving home from the bank and states he was near syncopal and did not think I would make it. He is asymptomatic now. He had a stent put in about 10 years ago or so. Had COVID about a month ago and is feeling better now. He has been having some GI issues lately and has an appointment scheduled with GI for consultation regarding his known hiatal hernia. 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 Bilateral hearing loss Calculus of gallbladder without cholecystitis without obstruction Depression Early satiety Genetic susceptibility to other disease GERD (gastroesophageal reflux disease) Hiatal hernia History of pulmonary embolus (PE) Hyperlipidemia Inguinal hernia Mass of cardiovascular structure (03/2017) Memory loss Other bursitis of knee, right knee PAD (peripheral artery disease) Pill rolling tremor Polyp of colon Polyuria Pulmonary artery mass Pulmonary emboli Pulmonary embolism Pulmonary valve mass Tinnitus Vitamin B12 deficiency Vitamin B12 deficiency anemia, unspecified Home Medications aspirin 81 mg chewable tablet 81 mg PO DAILY 11/04/16 [History Last Taken 04/02/22] omeprazole 40 mg capsule,delayed release 40 mg PO DAILY 11/04/16 [History Last Taken 04/02/22] cyanocobalamin (vitamin B-12) 2,500 mcg sublingual tablet 2,500 mcg sublingual DAILY 01/02/19 [History Last Taken 04/02/22] cholecalciferol (vitamin D3) 25 mcg (1,000 unit) capsule 25 mcg PO DAILY 05/27/20 [History Last Taken 04/02/22] lactobacillus combination no.8 3 billion cell capsule (Adult Probiotic) 3,000 mmu cells PO DAILY 05/27/20 [History Last Taken 04/02/22] atorvastatin 10 mg tablet 10 mg PO DAILY cholesterol 04/02/22 [History Last Taken 04/02/22] metoprolol succinate 25 mg tablet,extended release 24 hr 12.5 mg PO DAILY 04/02/22 [History Last Taken 04/02/22] Allergy/AdvReac Type Severity Reaction Status Date / Time No Known Allergies Allergy Verified 04/02/22 11:30 Family History Father Cancer Prostate cancer Surgical History H/O hernia repair History of coronary artery stent placement (07/12/11) History of partial knee replacement Hx of cholecystectomy Social History Smoking Status: Never smoker alcohol intake: never substance use type: does not use caffeine: Yes Type: coffee Number of servings: 2 what type of physical activity do you participate in: none seatbelt use: always do you feel safe at home: Yes ROS ROS ED Constitutional Constitutional ED: Denies chills or fever(s) Eyes Eyes: Denies change in vision or diplopia ENT ENT ED: Denies rhinorrhea or sore throat Cardiovascular Cardiovascular: Reports as per HPI, chest pain, diaphoresis and lightheadedness; Denies palpitations Respiratory/Chest Respiratory/Chest: Denies cough or dyspnea Gastrointestinal Gastrointestinal: Denies abdominal pain, diarrhea, nausea or vomiting Genitourinary Genitourinary ED: Denies dysuria or hematuria Musculoskeletal Musculoskeletal: Denies back pain or neck pain Integumentary Denies abscess or rash Neurologic Neurologic: Denies headache(s), paresthesias, syncope or weakness Psychiatric Psychiatric: Denies anxiety or suicidal thoughts EXAM Physical Exam Const Vital Signs: 04/02/22 11:28 04/02/22 11:31 04/02/22 12:10 Temperature 98.7 F Temperature Source Temporal Pulse Rate 73 Respiratory Rate 18 Respiratory Effort Normal Non-Labored Blood Pressure 148/73 H Blood Pressure Mean 98 Pulse Ox 96 Oxygen Delivery Method Room Air Room Air Positive well nourished and well developed General Appearance ED: well developed and NAD HEENT Reports moist mucous membranes normocephalic and atraumatic Eyes PERRL and EOMs intact bilaterally Neck full ROM and supple Resp normal respiratory effort and clear to auscultation bilaterally Cardio regular rate, regular rhythm and no murmurs GI non-tender and non-distended Auscultation: normoactive bowel sounds Palpation: soft Back/Spine no CVA tenderness General Back: other FROM Extremity normal to inspection General Extremety ED: Negative for edema, pulses abnormal or tenderness General Extremity: Negative for edema or pulses abnormal Neuro oriented x3, CN's II-XII intact bilaterally and no sensory deficits noted Sensorium / Orientation: awake and alert Motor Exam: strength 5/5 throughout Skin no rashes or lesions noted and no wounds Heart Score History: Highly Suspicious ECG: Normal Age: >/= 65 years Risk Factors: >/= 3 Risk Factors or History of CAD Troponin: </= Normal Limit Score: 6 MDM MDM MDM Narrative Medical decision making narrative: Patient was observed on the monitor had no events recurrence of his symptoms. 2 troponins are both negative and unchanged from each other. Discussed with cardiology given the patient's risk and concerning story, Dr. Cleveland is in agreement with admitting the patient for further evaluation and provocative testing. Lab Data Attestation: I reviewed the patient's lab results. Labs: Laboratory Results - last 24 hr 04/02/22 04/02/22 04/02/22 11:30 11:30 13:30 WBC 7.4 RBC 5.37 Hgb 17.0 H Hct 49.8 MCV 92.7 MCH 31.7 MCHC 34.1 RDW Std Deviation 43.9 RDW Coeff of Juanita 12.8 Plt Count 145 L MPV 10.0 Immature Gran % (Auto) 0.400 Neut % (Auto) 68.1 Lymph % (Auto) 20.9 Ulster % (Auto) 7.9 Eos % (Auto) 2.4 Baso % (Auto) 0.3 Absolute Neuts (auto) 5.1 Absolute Lymphs (auto) 1.55 Nucleated RBC % 0 Sodium 140 Potassium 3.8 Chloride 104 Carbon Dioxide 29.0 Anion Gap 7 BUN 13 Creatinine 1.05 Estim Creat Clear Calc 57.07 Est GFR (MDRD) Af Amer 86 Est GFR (MDRD) Non-Af 71 BUN/Creatinine Ratio 12.4 Glucose 121 H Calcium 9.0 Troponin I High Sens 4 4 Radiography Chest X-Ray - ED: 1 View, No Acute Disease, Chronic Changes and No Infiltrates Diagnostic Testing: Clinical Impression(s) from Imaging Studies Chest X-Ray 04/02/22 12:04 IMPRESSION: Stable scarring at the left lung base. No acute abnormality is seen. Electronically Signed: Ganesh Kent MD at 12:37 EDT , Rhythm Strip Rhythm Strip: Sinus Rhythm Rate: 75 Ectopy: None EKG Initial EKG: Attestation: I personally reviewed and interpreted this EKG as follows: Interpretation: Sinus Rhythm, No Acute Injury Pattern and Inverted T-Waves (high lateral) Comments: LPFB. no ST segment deviations. Prior: Changed (compared 01/02/19) Discharge Plan Dx/Rx/DC Orders Clinical Impression: Near syncope, Intermittent chest pain, Hx of coronary artery disease Disposition Disposition: Acute Care Hospital [facility]
--- NOTE | 2022-04-02 12:04 | RAD_ITS ---
STUDY: X-RAY CHEST REASON FOR EXAM: Male, 87 years old. Chest pain TECHNIQUE: Single AP portable view of the chest. COMPARISON: Comparison is made with prior study dated 11/26/2017. FINDINGS: EKG electrodes are seen. Stable mild increased markings at the left lung base suggest scarring. There is no demonstrated pleural abnormality. Normal size heart. Normal mediastinum and lisa. Normal visualized pulmonary arteries. Normal visualized aortic arch and descending thoracic aorta. There are degenerative changes of the visualized thoracic spine. There is degenerative osteoarthritis of the bilateral shoulders. This evidence of prior left rotator cuff surgery. There is no demonstrated abnormality of the visualized soft tissue structures of the upper abdomen. RAD/Chest 1 View (Portable) IMPRESSION: Stable scarring at the left lung base. No acute abnormality is seen. Electronically Signed: Ganesh Kent MD at 12:37 EDT ,
[2022-04-02 12:13] LABS: Absolute Lymphocyte Count 1.55 X10^3/uL (0.83-4.51); Absolute Neutrophil Count 5.1 X10^3/uL (2.0-7.7); Basophil# 0.02 X10^3/uL; Basophil% 0.3 % (0-1); Eosinophil# 0.18 X10^3/uL; Eosinophils% 2.4 % (0-5); Hematocrit 49.8 % (40-54); Lymphocyte # 1.55 X10^3/ul (0.83-4.51); Lymphocyte % 20.9 % (19-41); Mean Corp Hgb Conc 34.1 g/dL (32-36); Mean Corpuscular Hgb 31.7 pg (27.0-32.0); Mean Corpuscular Volume 92.7 fL (80-94); Monocyte# 0.59 X10^3/uL; Monocyte% 7.9 % (0-10); NRBC Flagged by Analyzer 0 % (0-5); Neutrophil # 5.06 X10^3/uL (2.7-7.7); Neutrophil % 68.1 % (47-70); Platelet Count 145 K/mm3 (150-450); RBC Distribution Width CV 12.8 % (11.6-14.6); RBC Distribution Width SD 43.9 fl (35.1-43.9); Red Blood Count 5.37 M/mm3 (4.6-6.2); White Blood Count 7.4 K/mm3 (4.4-11.0)
[2022-04-02] MEDS: Aspirin 81 MG TAB.CHEW 162 MG PO (12:18)
[2022-04-02 12:29] LABS: Anion Gap 7 (5-15); BUN 13 mg/dL (7-18); BUN/Creat Ratio 12.4 RATIO (10-20); Chloride 104 mmol/L (98-107); Creatinine, Serum 1.05 mg/dL (0.70-1.30); EST Glomerular Filtration Rate 71 mL/min (>60); Est Glom Filt Rate - Afr Amer 86 mL/min (>60); Estimated Creatinine Clearance 57.07 ml/min; Glucose 121 mg/dL (74-106); Potassium 3.8 mmol/L (3.5-5.1); Sodium Level 140 mmol/L (136-145); Troponin-I HS (w/2H Reflex) 4 pg/mL (3.0-78.0)
[2022-04-02 14:05] LABS: Troponin-I HS 4 pg/mL (3.0-78.0)
[2022-04-02 14:09] LABS: Reflex Troponin-HS? (from REC) Y
--- NOTE | 2022-04-02 15:06 | NURSING ---
PCU LISA CHEST PAIN, NEAR SYNCOPE
--- NOTE | 2022-04-02 15:11 | ECHOD_ITS ---
Reason For Study: CHEST PAIN Procedure This was a 2D Doppler, Color Flow transthoracic echocardiogram. The study was technically difficult. Exam performed portable in ED. Left Ventricle Normal LV size. Left ventricular systolic function is normal. The estimated ejection fraction is 60 %. No evidence for diastolic dysfunction. No regional wall motion abnormalities noted. Right Ventricle Normal RV size. Normal systolic function. Atria Normal left atrium. Normal right atrium. No doppler evidence for ASD. Mitral Valve There is mild mitral annular calcification. Mild diffuse mitral valve thickening. Trivial mitral valve insufficiency. Tricuspid Valve Normal tricuspid valve. Mild tricuspid valve insufficiency. Right ventricular systolic pressure estimated to be 31 mmHg. Aortic Valve Trisinus/trileaflet aortic valve. Normal aortic valve. Trivial aortic valve insufficiency. Pulmonic Valve The pulmonic valve is not well visualized. Trivial pulmonic valve insufficiency. Great Vessels Normal sized aortic root. Pericardium/Pleural No pericardial effusion. MMode/2D Measurements & Calculations LVIDd: 4.6 cm IVSd: 1.2 cm Ao root diam: 3.4 cm LVIDs: 2.9 cm LVPWd: 0.89 cm RVDd: 3.9 cm FS: 35.9 % LAV(MOD-bp): 45.9 ml LVAd ap4: 28.6 cm2 SV(MOD-sp4): 58.5 ml LAV(MOD-bp) Indexed: 21.3 ml/m2 LVLd ap4: 7.3 cm LAV(MOD-sp2): 43.4 ml EDV(MOD-sp4): 88.8 ml LAV(MOD-sp4): 46.8 ml EDV(sp4-el): 94.8 ml LVAs ap4: 14.9 cm2 LVLs ap4: 5.8 cm ESV(MOD-sp4): 30.2 ml ESV(sp4-el): 32.3 ml EF(MOD-sp4): 65.9 % EF(sp4-el): 65.9 % SV(sp4-el): 62.4 ml LA A4 area: 17.6 cm2 LA dimension(2D): 3.8 cm RA A4 area: 18.1 cm2 Time Measurements MV dec time: 0.21 sec Doppler Measurements & Calculations MV E max alexander: 62.1 cm/sec Lat Peak E' Alexander: 7.9 cm/sec Med Peak E' Alexander: 6.3 cm/sec MV A max alexander: 75.6 cm/sec E/E' lat: 7.9 E/E' med: 9.9 MV E/A: 0.82 Ao V2 max: 99.2 cm/sec LV V1 max: 99.9 cm/sec PA V2 max: 78.7 cm/sec Ao max P.9 mmHg LV V1 max P.0 mmHg TR max alexander: 263.6 cm/sec TR max P.8 mmHg ECHO/Echo Complete Interpretation Summary The study was technically difficult. Left ventricular systolic function is normal. The estimated ejection fraction is 60 %. There is mild mitral annular calcification. Mild diffuse mitral valve thickening. Trivial mitral valve insufficiency. Mild tricuspid valve insufficiency. Trivial aortic valve insufficiency. Trivial pulmonic valve insufficiency. Right ventricular systolic pressure estimated to be 31 mmHg. No evidence for diastolic dysfunction. Ordering Physician: Aidee Galvan Referring Physician: KATALINA LAWRENCE Performed By: Melissa Reed RDCS
--- NOTE | 2022-04-02 15:43 | PCM.HP.STD ---
Documented by User: Dr. Aidee Galvan DO 04/02/22 18:08 HPI - General General Date of Admission: 04/02/[address] Galvan Mr. Mercedes is an 87-year-old white male who presented to the emergency department [facility] on 04/02/2022 for chest heaviness, diaphoresis, and lightheadedness with presyncope. The patient reported he had COVID-19 approximately 1 month ago and since that point time he has had increased fatigue, weakness, intermittent diarrhea, and reduced appetite. The patient initially reported increased chest heaviness for approximately the last 2 weeks however when further questioned he admits that its been at least 2 months or longer. He reported that it seems to start in his upper abdominal region and radiates up into his right chest. He denies any association with oral intake or otherwise. He states it seems to come and go and is more like a heaviness sensation and denies any burning or sharp pain. He has had some associated diaphoresis and shortness of breath but denies any associated nausea or vomiting. He states today's episode was the most severe he has had since they started and that is why he presented to the emergency department. Vital signs upon presentation showed a temperature of 98.7, heart rate of 73, blood pressure of 148/73, respiratory rate of 18, and oxygen saturation of 96% on room air. CBC showed chronic thrombocytopenia with a platelet count of 145 and erythrocytosis with a hemoglobin of 17 which appears to be close to his baseline. His BMP was unremarkable other than some mild glucose elevation at 121 however this was not a fasting specimen. His initial troponin was found to be 4. His chest x-ray was negative for any acute events. His EKG showed normal sinus rhythm without any ST-T wave changes concerning for acute ischemia and normal intervals. In the emergency department he was given aspirin and the case was discussed with the electric motor repairman on-call, Dr. Cleveland, and he recommend the patient be admitted for repeat echocardiogram and evaluation with a stress test as long as the troponin remained in the normal range. [employer] Student PATIENCE MERCEDES, is a 87 M who presents to [facility] emergency department on 04/02/2022 for chest heaviness with diaphoresis and lightheadedness. Per patient, he had COVID-19 1 month ago and since then has had decreased appetite, increased fatigue, weakness, and intermittent diarrhea. For 2 weeks now, the patient states that he has been experiencing intermittent episodes of chest heaviness. These episodes occur unpredictably. Today the patient states he knew this morning that things were off, which he describes as feeling lightheaded and weak, but he still drove himself into town to the bank. The patient then decided that perhaps he just needed to rest, and so he stopped at [employer] for a cup of coffee. The patient continued to not feel well and began having chest heaviness, so the restaurant staff called his . The then met the patient at the restaurant. The patient tried to eat something, but this also did not help. The restaurant staff then had to help the patient into his 's car, and they drove to the emergency department. The patient's vital signs on arrival to the emergency department were temperature of 98.7, heart rate 73, blood pressure of 148/73, respiratory rate of 18, and oxygen saturation of 96% on room air. CBC was unremarkable aside from platelet count of 145. BMP showed normal electrolytes and renal function with glucose at 121. Serial troponin high-sensitivity results were normal with both results at 4. EKG showed no ST elevation, and chest x-ray was negative. In the emergency department, patient was given 2 baby aspirin. We will admit to the telemetry floor for further work-up. [facility] Medical History Anxiety Atherosclerotic heart disease of [place] coronary artery without angina pectoris Bilateral hearing loss Calculus of gallbladder without cholecystitis without obstruction Depression Dizziness Early satiety Excessive sweating Fatigue Genetic susceptibility to other disease GERD (gastroesophageal reflux disease) Hiatal hernia History of pulmonary embolus (PE) Hyperlipidemia Inguinal hernia Mass of cardiovascular structure (03/2017) Memory loss Other bursitis of knee, right knee PAD (peripheral artery disease) Pill rolling tremor Polyp of colon Polyuria Pulmonary artery mass Pulmonary emboli Pulmonary embolism Pulmonary valve mass Tinnitus Vitamin B12 deficiency Vitamin B12 deficiency anemia, unspecified Home Medications aspirin 81 mg chewable tablet 81 mg PO DAILY 11/04/16 [History Last Taken 04/02/22] omeprazole 40 mg capsule,delayed release 40 mg PO DAILY 11/04/16 [History Last Taken 04/02/22] cyanocobalamin (vitamin B-12) 2,500 mcg sublingual tablet 2,500 mcg sublingual DAILY 01/02/19 [History Last Taken 04/02/22] cholecalciferol (vitamin D3) 25 mcg (1,000 unit) capsule 25 mcg PO DAILY 05/27/20 [History Last Taken 04/02/22] lactobacillus combination no.8 3 billion cell capsule (Adult Probiotic) 3,000 mmu cells PO DAILY 05/27/20 [History Last Taken 04/02/22] atorvastatin 10 mg tablet 10 mg PO DAILY cholesterol 04/02/22 [History Last Taken 04/02/22] metoprolol succinate 25 mg tablet,extended release 24 hr 12.5 mg PO DAILY 04/02/22 [History Last Taken 04/02/22] Allergy/AdvReac Type Severity Reaction Status Date / Time No Known Allergies Allergy Verified 04/02/22 11:30 Family History Father Cancer Prostate cancer Surgical History H/O hernia repair History of coronary artery stent placement (07/12/11) History of partial knee replacement History of repair of rotator cuff History of transurethral resection of prostate Hx of cholecystectomy Social History household members: spouse Smoking Status: Never smoker alcohol intake: current alcohol intake frequency: holidays/special occasions only Alcohol type: wine substance use type: does not use caffeine: Yes Type: coffee Number of servings: 2 what type of physical activity do you participate in: none seatbelt use: always do you feel safe at home: Yes ROS Constitutional Constitutional: Reports fatigue and weakness; Denies anorexia, change in weight, chills, fever(s), malaise, night sweats or other Eyes Eyes: Denies blurry vision, change in eye color, change in vision, discharge from eye(s), double vision, erythema, eye pain, loss of vision or other ENT HEENT: Denies abnormal hearing, dysphagia, ear pain, epistaxis, headache(s), hearing loss, nasal congestion, nasal discharge, post nasal drip, sinus pressure, sore throat or other Cardiovascular Cardiovascular: Reports chest pain, dyspnea on exertion and lightheadedness; Denies claudication, edema, orthopnea, palpitations, paroxysmal nocturnal dyspnea, rapid heart rate, syncope or other Respiratory/Chest Respiratory/Chest: Reports shortness of breath with exertion; Denies cough, dyspnea, excessive phlegm production, hemoptysis, productive cough, shortness of breath at rest or wheezing Gastrointestinal Gastrointestinal: Reports diarrhea; Denies abdominal pain, coffee ground emesis, constipation, dyspepsia, hematemesis, hematochezia, loose stools, melena, nausea, vomiting or other Genitourinary Genitourinary: Denies burning urination, difficulty urinating, dysuria, hematuria, nocturia, urinary frequency, urinary hesitancy, urinary incontinence, urinary urgency or other Musculoskeletal Musculoskeletal: Denies arthralgias, back pain, joint pain, joint stiffness, joint swelling, myalgias, neck pain or other Neurologic Neurologic: Reports disequilibrium and dizziness; Denies abnormal gait, abnormal speech, confusion, focal weakness, headache(s), numbness, paresthesias, seizure-like activity, seizures, syncope, tingling, tremor(s) or other Psychiatric Psychiatric: Reports anxiety; Denies depression, homicidal ideation or suicidal ideation Endocrine Endocrinology: Denies change in body appearance, cold intolerance, excessive sweating, heat intolerance, polydipsia, polyuria or other Hematologic/Lymphatic Hematologic/Lymphatic: Denies anemia, easy bleeding, easy bruising, lymphadenopathy or other Allergic/Immunologic Allergic/Immunologic: Denies rhinitis, hives, eczemia, asthma or other Vital Signs Vital Signs Vital Signs: 04/02/22 11:28 04/02/22 11:31 04/02/22 12:10 Temperature 98.7 F Temperature Source Temporal Pulse Rate 73 Respiratory Rate 18 Respiratory Effort Normal Non-Labored Blood Pressure 148/73 H Blood Pressure Mean 98 Pulse Ox 96 Oxygen Delivery Method Room Air Room Air 04/02/22 15:04 Temperature 98.1 F Temperature Source Temporal Pulse Rate 72 Respiratory Rate 18 Respiratory Effort Blood Pressure 130/75 H Blood Pressure Mean 93 Pulse Ox Oxygen Delivery Method Weight Weight: 91.6 kg Body Mass Index (BMI) 26.6 Physical Exam Const alert, oriented x3 and no apparent distress General Appearance: cooperative HEENT normocephalic, head/scalp atraumatic and moist oral mucous membranes HEENT Narrative: Hard of hearing. No thrush. Mallampati 2, dentures in place Eyes PERRL, EOMs intact bilaterally and conjunctivae normal Neck no lymphadenopathy, supple, no JVD and no carotid bruits Resp normal respiratory effort, no retractions, no use of accessory muscles and clear to auscultation bilaterally Auscultation: Negative for crackles, rales, rhonchi or wheezes Cardio regular rate, regular rhythm, S1 normal heart sound, S2 normal heart sound, no murmurs, no rub, no gallops, no clicks and no JVD GI normal to inspection, nondistended, normoactive bowel sounds, soft to palpation and non-distended; Negative for hepatosplenomegaly Palpation: tender epigastric Extremity normal to inspection and no clubbing, cyanosis or edema Skin no rashes or lesions noted, no wounds, skin turgor normal, no jaundice, no petechiae and no mottling Neuro Neuro Narrative: No sensory deficits Results Lab / Micro Data Result Diagrams: 04/02/22 11:30 04/02/22 11:30 Labs: Laboratory Results - last 24 hr 04/02/22 11:30: WBC 7.4, RBC 5.37, Hgb 17.0 H, Hct 49.8, MCV 92.7, MCH 31.7, MCHC 34.1, RDW Std Deviation 43.9, RDW Coeff of Juanita 12.8, Plt Count 145 L, MPV 10.0, Immature Gran % (Auto) 0.400, Neut % (Auto) 68.1, Lymph % (Auto) 20.9, [place] % (Auto) 7.9, Eos % (Auto) 2.4, Baso % (Auto) 0.3, Absolute Neuts (auto) 5.1, Absolute Lymphs (auto) 1.55, Nucleated RBC % 0 04/02/22 11:30: Sodium 140, Potassium 3.8, Chloride 104, Carbon Dioxide 29.0, Anion Gap 7, BUN 13, Creatinine 1.05, Estim Creat Clear Calc 57.07, Est GFR (MDRD) Af Amer 86, Est GFR (MDRD) Non-Af 71, BUN/Creatinine Ratio 12.4, Glucose 121 H, Calcium 9.0, Troponin I High Sens 4 04/02/22 13:30: Troponin I High Sens 4 Rhythm Strip Rhythm Strip: Sinus Rhythm Rate: 75 Ectopy: None Radiology Impression Chest X-Ray 04/02/22 12:04 IMPRESSION: Stable scarring at the left lung base. No acute abnormality is seen. Electronically Signed: Ganesh Kent MD at 12:37 EDT , Assessment & Plan Assessment/Plan (1) Intermittent chest pain: (2) Near syncope: (3) Hx of coronary artery disease: (4) Thrombocytopenia: PLAN: Plan Dr. Galvan Intermittent chest pain -Patient has been having symptoms on and off for about the last 2 months -Radiates from his epigastrium up into his chest -Has pending GI consultation with Dr. Acevedo in May - at this time -EKG without any changes consistent with acute ischemia and all intervals are within normal limits -Obtain echocardiogram -Check serial troponins -Stress test in a.m. as long as troponin does not elevate -As needed sublingual nitroglycerin -Continue home medications including aspirin, statin, metoprolol -Case was discussed with Dr. Cleveland by myself and the ER physician Presyncope -Was associated with the above pain -Had carotid ultrasounds 2020 which showed less than 50% stenosis in the carotid arteries and patency with antegrade flow of the vertebral arteries -Feels fine at this time -Check TSH -Check electrolytes -If the above work-up for chest pain is negative will need a monitor at discharge Chronic thrombocytopenia -Counts are stable -Continue to monitor History of coronary artery disease -Stent placement 2010 -Continue aspirin -continue metoprolol -Continue statin Hypertension -Continue home metoprolol -Monitor blood pressure Hyperlipidemia -Check lipids -Continue atorvastatin GERD -Continue omeprazole DVT prophylaxis -Lovenox CODE STATUS -Full code as per discussion with patient and his family in the emergency department prior to admission [employer] Student Intermittent chest pain ? History of coronary artery disease with stent placement in 2010 ? Most recent echo and exercise perfusion stress test in June 2020; ejection fraction on stress noted to be 71%. ? Carotid duplex ultrasound June 2021 with less than 50% stenosis with patent antegrade flow bilaterally ? Unprovoked episodes of chest heaviness occurring intermittently for the past few weeks, worse today ? EKG in ED shows no ST changes and serial troponins were normal ? Patient of [facility]; case discussed with Dr. Cleveland ? Obtain echo ? Serial troponins ? Plan for stress test ? Check Mg/Phos ? Continue home aspirin ? Sublingual nitroglycerin as needed for chest pain Chronic thrombocytopenia ? Platelet count 149, high for patient's baseline ? Trend CBCD History of coronary artery disease ? Cardiac diet ? Continue home aspirin ? Continue home statin therapy History of hypertension ? Blood pressure elevated in ED ? Continue home metoprolol ? Trend blood pressures History of hyperlipidemia ? Check lipid panel ? Continue home atorvastatin History of GERD ? Continue home omeprazole DVT prophylaxis ? Lovenox 40 mg subcu daily ? SCDs CODE STATUS ? Full code Charges/Coding Visit Charges Inpatient E&M: 71311 Init Hosp L3 Documented by User: SAGAR MATT 04/02/22 17:59 HPI - General General Date of Admission: 04/02/22 Date of Service: 04/02/22 HPI Narrative [employer] Student PATIENCE MERCEDES, is a 87 M who presents to [facility] emergency department on 04/02/2022 for chest heaviness with diaphoresis and lightheadedness. Per patient, he had COVID-19 1 month ago and since then has had decreased appetite, increased fatigue, weakness, and intermittent diarrhea. For 2 weeks now, the patient states that he has been experiencing intermittent episodes of chest heaviness. These episodes occur unpredictably. Today the patient states he knew this morning that things were off, which he describes as feeling lightheaded and weak, but he still drove himself into town to the [employer]. The patient then decided that perhaps he just needed to rest, and so he stopped at [employer] for a cup of coffee. The patient continued to not feel well and began having chest heaviness, so the restaurant staff called his . The then met the patient at the restaurant. The patient tried to eat something, but this also did not help. The restaurant staff then had to help the patient into his 's car, and they drove to the emergency department. The patient's vital signs on arrival to the emergency department were temperature of 98.7, heart rate 73, blood pressure of 148/73, respiratory rate of 18, and oxygen saturation of 96% on room air. CBC was unremarkable aside from platelet count of 145. BMP showed normal electrolytes and renal function with glucose at 121. Serial troponin high-sensitivity results were normal with both results at 4. EKG showed no ST elevation, and chest x-ray was negative. In the emergency department, patient was given 2 baby aspirin. We will admit to the telemetry floor for further work-up. [facility] Medical History Anxiety Atherosclerotic heart disease of [place] coronary artery without angina pectoris Bilateral hearing loss Calculus of gallbladder without cholecystitis without obstruction Depression Dizziness Early satiety Excessive sweating Fatigue Genetic susceptibility to other disease GERD (gastroesophageal reflux disease) Hiatal hernia History of pulmonary embolus (PE) Hyperlipidemia Inguinal hernia Mass of cardiovascular structure (03/2017) Memory loss Other bursitis of knee, right knee PAD (peripheral artery disease) Pill rolling tremor Polyp of colon Polyuria Pulmonary artery mass Pulmonary emboli Pulmonary embolism Pulmonary valve mass Tinnitus Vitamin B12 deficiency Vitamin B12 deficiency anemia, unspecified Home Medications aspirin 81 mg chewable tablet 81 mg PO DAILY 11/04/16 [History Last Taken 04/02/22] omeprazole 40 mg capsule,delayed release 40 mg PO DAILY 11/04/16 [History Last Taken 04/02/22] cyanocobalamin (vitamin B-12) 2,500 mcg sublingual tablet 2,500 mcg sublingual DAILY 01/02/19 [History Last Taken 04/02/22] cholecalciferol (vitamin D3) 25 mcg (1,000 unit) capsule 25 mcg PO DAILY 05/27/20 [History Last Taken 04/02/22] lactobacillus combination no.8 3 billion cell capsule (Adult Probiotic) 3,000 mmu cells PO DAILY 05/27/20 [History Last Taken 04/02/22] atorvastatin 10 mg tablet 10 mg PO DAILY cholesterol 04/02/22 [History Last Taken 04/02/22] metoprolol succinate 25 mg tablet,extended release 24 hr 12.5 mg PO DAILY 04/02/22 [History Last Taken 04/02/22] Allergy/AdvReac Type Severity Reaction Status Date / Time No Known Allergies Allergy Verified 04/02/22 11:30 Family History Father Cancer Prostate cancer Surgical History H/O hernia repair History of coronary artery stent placement (07/12/11) History of partial knee replacement History of repair of rotator cuff History of transurethral resection of prostate Hx of cholecystectomy Social History household members: spouse Smoking Status: Never smoker alcohol intake: current alcohol intake frequency: holidays/special occasions only Alcohol type: wine substance use type: does not use caffeine: Yes Type: coffee Number of servings: 2 what type of physical activity do you participate in: none seatbelt use: always do you feel safe at home: Yes Prior Cardiac Testing/Procedures Prior Cardiac Testing/Procedures: Echocardiogram (Most recently in June 2020, EF 60% at that time.), Stress Test (Exercise stress, most recently in June 2020) and Stenting (July 2011) ROS Constitutional Constitutional: Reports fatigue and weakness; Denies anorexia, change in weight, chills, fever(s), malaise or night sweats Eyes Eyes: Denies blurry vision, change in eye color, change in vision, discharge from eye(s), double vision, erythema, eye pain or loss of vision ENT HEENT: Denies abnormal hearing, dysphagia, ear pain, epistaxis, headache(s), hearing loss, nasal congestion, nasal discharge, post nasal drip, sinus pressure or sore throat Cardiovascular Cardiovascular: Reports chest pain, dyspnea on exertion and lightheadedness; Denies claudication, edema, orthopnea, palpitations, paroxysmal nocturnal dyspnea, rapid heart rate or syncope Respiratory/Chest Respiratory/Chest: Reports other Details: Patient denies shortness of breath, but states I have been too tired to do anything to make me short of breath. ; Denies cough, dyspnea, excessive phlegm production, hemoptysis, productive cough, shortness of breath at rest, shortness of breath with exertion or wheezing Gastrointestinal Gastrointestinal: Reports diarrhea; Denies abdominal pain, coffee ground emesis, constipation, dyspepsia, hematemesis, hematochezia, loose stools, melena, nausea or vomiting Genitourinary Genitourinary: Denies burning urination, difficulty urinating, dysuria, hematuria, nocturia, urinary frequency, urinary hesitancy, urinary incontinence or urinary urgency Musculoskeletal Musculoskeletal: Denies arthralgias, back pain, joint pain, joint stiffness, joint swelling, myalgias or neck pain Neurologic Neurologic: Reports disequilibrium and dizziness; Denies abnormal gait, abnormal speech, confusion, focal weakness, headache(s), numbness, paresthesias, seizure-like activity, seizures, syncope, tingling or tremor(s) Psychiatric Psychiatric: Reports anxiety and other Details: reports that patient has been increasingly anxious lately. This has been more noticeable since becoming less active since his COVID infection. ; Denies depression, homicidal ideation or suicidal ideation Endocrine Endocrinology: Denies change in body appearance, cold intolerance, excessive sweating, heat intolerance, polydipsia or polyuria Hematologic/Lymphatic Hematologic/Lymphatic: Denies anemia, easy bleeding, easy bruising or lymphadenopathy Allergic/Immunologic Allergic/Immunologic: Denies rhinitis, hives, eczemia or asthma Physical Exam Const alert, oriented x3 and no apparent distress Constitutional Narrative: Elderly, overweight white male sitting upright in the bed alert and talkative. Patient appears comfortable and nontoxic. is at bedside for exam. General Appearance: cooperative HEENT normocephalic, head/scalp atraumatic, moist oral mucous membranes and dentition normal HEENT Narrative: Hard of hearing. No thrush. Mallampati 2. Eyes PERRL, EOMs intact bilaterally and conjunctivae normal Eyes Narrative: No scleral icterus. Neck no lymphadenopathy, supple, no JVD and no carotid bruits Neck Narrative: Trachea midline. No thyroid enlargement. Resp normal respiratory effort, no retractions, no use of accessory muscles and clear to auscultation bilaterally Auscultation: Negative for crackles, rales, rhonchi or wheezes Cardio regular rate, regular rhythm, S1 normal heart sound, S2 normal heart sound, no murmurs, no rub, no gallops, no clicks and no JVD GI normal to inspection, nondistended, normoactive bowel sounds, soft to palpation and non-distended; Negative for hepatosplenomegaly GI Narrative: Mild epigastric tenderness. Extremity normal to inspection, full ROM and no clubbing, cyanosis or edema Extremity Narrative: Pedal pulses 2+ bilaterally. Skin no rashes or lesions noted, no wounds, skin turgor normal, no jaundice, no petechiae and no mottling Neuro oriented x3, CN's II-XII intact bilaterally, moves all extremities and no focal motor deficits Sensorium / Orientation: awake, alert, oriented to person, oriented to place and oriented to time Speech: speech normal Psych affect normal Psych Narrative: Patient is very pleasant. Results Lab / Micro Data Result Diagrams: 04/02/22 11:30 04/02/22 11:30 Assessment & Plan Assessment/Plan (1) Intermittent chest pain: (2) Near syncope: (3) Hx of coronary artery disease: (4) Thrombocytopenia: PLAN: Plan Dr. Galvan [employer] Student Intermittent chest pain ? History of coronary artery disease with stent placement in 2010 ? Most recent echo and exercise perfusion stress test in June 2020; ejection fraction on stress noted to be 71%. ? Carotid duplex ultrasound June 2021 with less than 50% stenosis with patent antegrade flow bilaterally ? Unprovoked episodes of chest heaviness occurring intermittently for the past few weeks, worse today ? EKG in ED shows no ST changes and serial troponins were normal ? Patient of [facility]; case discussed with Dr. Cleveland ? Obtain echo ? Serial troponins ? Plan for stress test ? Check Mg/Phos ? Continue home aspirin ? Sublingual nitroglycerin as needed for chest pain Chronic thrombocytopenia ? Platelet count 149, high for patient's baseline ? Trend CBCD History of coronary artery disease ? Cardiac diet ? Continue home aspirin ? Continue home statin therapy History of hypertension ? Blood pressure elevated in ED ? Continue home metoprolol ? Trend blood pressures History of hyperlipidemia ? Check lipid panel ? Continue home atorvastatin History of GERD ? Continue home omeprazole DVT prophylaxis ? Lovenox 40 mg subcu daily ? SCDs CODE STATUS ? Full code
--- NOTE | 2022-04-02 16:22 | EKG12_ITS ---
Test Reason : AM EKG Blood Pressure : / mmHG Vent. Rate : 069 BPM Atrial Rate : 069 BPM P-R Int : 164 ms QRS Dur : 094 ms QT Int : 396 ms P-R-T Axes : 067 064 070 degrees QTc Int : 424 ms Normal sinus rhythm Normal ECG Confirmed by LEESA CARRILLO, PUMA ([id number]), editorial clerk BERTA VANCE ([id number]) on 04/07/2022 8:28:11 AM Referred By: Confirmed By:PUMA LANDERS MD
--- NOTE | 2022-04-02 18:54 | NURSING ---
Reviewed charting with Gianna WALLIS
[2022-04-02 19:12] LABS: Troponin-I HS 4 pg/mL (3.0-78.0)
[2022-04-03] VITALS (7 sets, daily range): BP systolic 111–145; BP diastolic 73–86; PULSE 74–95; RESP 16–18; TEMP 36.6–37.1; O2SAT 96–97
[2022-04-03] MEDS: Aspirin 81 MG TAB.CHEW PO (06:11)
[2022-04-03 06:59] LABS: Absolute Lymphocyte Count 2.19 X10^3/uL (0.83-4.51); Absolute Neutrophil Count 4.1 X10^3/uL (2.0-7.7); Basophil# 0.01 X10^3/uL; Basophil% 0.1 % (0-1); Eosinophil# 0.16 X10^3/uL; Eosinophils% 2.3 % (0-5); Hematocrit 50.3 % (40-54); Hemoglobin 17.1 g/dL (13.0-16.5); Lymphocyte # 2.19 X10^3/ul (0.83-4.51); Lymphocyte % 30.8 % (19-41); Mean Corpuscular Hgb 31.8 pg (27.0-32.0); Mean Corpuscular Volume 93.5 fL (80-94); Mean Platelet Vol. 9.9 fl (6.2-12.0); Monocyte# 0.62 X10^3/uL; Monocyte% 8.7 % (0-10); NRBC Flagged by Analyzer 0 % (0-5); Neutrophil # 4.11 X10^3/uL (2.7-7.7); Neutrophil % 57.8 % (47-70); Platelet Count 138 K/mm3 (150-450); RBC Distribution Width CV 12.7 % (11.6-14.6); RBC Distribution Width SD 43.4 fl (35.1-43.9); Red Blood Count 5.38 M/mm3 (4.6-6.2); White Blood Count 7.1 K/mm3 (4.4-11.0)
[2022-04-03 07:22] LABS: Anion Gap 6 (5-15); BUN 12 mg/dL (7-18); BUN/Creat Ratio 11.2 RATIO (10-20); Chloride 105 mmol/L (98-107); Cholesterol 127 mg/dL (200); Creatinine, Serum 1.07 mg/dL (0.70-1.30); EST Glomerular Filtration Rate 70 mL/min (>60); Est Glom Filt Rate - Afr Amer 84 mL/min (>60); Estimated Creatinine Clearance 54.39 ml/min; Glucose 96 mg/dL (74-106); High Density Lipoprotein 37 mg/dL; Magnesium 2.1 mg/dL (1.6-2.6); Phosphorus 2.7 mg/dL (2.5-4.9); Potassium 3.8 mmol/L (3.5-5.1); Sodium Level 140 mmol/L (136-145); Thyroid Stim Hormone (TSH) 5.06 uIU/mL (0.358-3.74); Triglycerides 123 mg/dL; Very Low Density Lipoprotein 25 mg/dL (5-40)
[2022-04-03 08:57] LABS: T4 Free Direct 0.94 ng/dL (0.76-1.46)
--- NOTE | 2022-04-03 10:37 | STRESSREP ---
Stress Test Report Date: 04-03-2022 Procedure: Pharmacologic stress nuclear imaging study Indications: Chest pain; CAD; PCI Consent: Per the patient Procedure: The patient underwent pharmacologic (Regadenoson 0.4mg ) evaluation with a peak heart rate of 106 beats per minute (79%predicted maximal heart rate) and a peak blood pressure of 152/78 mmHg. The baseline ECG demonstrated normal sinus rhythm. The peak pharmacologic ECG demonstrated no obvious ECG changes. There were no cardiac dysrhythmias pretest, during pharmacologic infusion, or recovery. There was no complaint of chest discomfort during pharmacologic infusion or recovery. The examination was discontinued secondary to completion of protocol. Impression: 1. Pharmacologic (Regadenoson) evaluation 2. Peak pharmacologic ECG with no obvious ECG changes. 3. There were no cardiac dysrhythmias pretest, during pharmacologic infusion, or recovery. 4. Nuclear images pending Myocardial perfusion imaging study: Technique: The patient was injected with 12.0 millicuries of technetium 99m Cardiolite and subsequently rest SPECT Cardiolite nuclear imaging was obtained in the horizontal long, vertical long, and short axis views. The patient underwent pharmacologic (Regadenoson) evaluation with a peak heart rate of 106 beats per minute (79% percent predicted maximal heart rate) and a peak blood pressure of 152/78 mmHg. The patient was injected with 35.7 millicuries of technetium 99m Cardiolite and subsequently stress SPECT Cardiolite nuclear imaging was obtained in the horizontal long, vertical long, and short axis views. A gated Cardiolite study at peak stress was obtained. Interpretation: Rest and stress SPECT Cardiolite nuclear imaging status post realignment, normalization, and attenuation correction demonstrate relative uniform tracer uptake and myocardial perfusion appearing within normal limits. There is end systolic thickening and brightening. The gated Cardiolite study demonstrates myocardial thickening and inward wall motion. The reported LVEF is 60%. Impression: 1. Rest and stress SPECT Cardiolite nuclear imaging demonstrate relative uniform tracer uptake and myocardial perfusion appearing within normal limits. 2. The gated Cardiolite study reports an LVEF of 60%. This note was generated with [employer] software. It may contain incorrect words, spelling, and punctuation that were not noted in checking the note before signing.
[2022-04-03] MEDS: Cholecalciferol (VIT D3) 25 MCG TABLET (1,000 UNITS) PO (10:42)
[2022-04-03] MEDS: Pantoprazole Sodium 40 MG Tablet PO (10:43)
[2022-04-03] MEDS: Metoprolol(XL)Succ 25 MG Tablet 12.5 MG PO (10:43)
--- NOTE | 2022-04-03 12:35 | PCM.DC.SUM ---
Providers Date of Admission: 04/02/22 Date of Discharge: 04/03/22 Primary Care Physician: JAYSHREE Zapata Reason For Visit: CHEST PAIN,SYNCOPE Diagnosis Discharge Diagnosis (1) Intermittent chest pain: Status: Acute Code(s): R07.9 - Chest pain, unspecified (2) Near syncope: Status: Acute Code(s): R55 - Syncope and collapse (3) Hx of coronary artery disease: Status: Acute Code(s): Z86.79 - Personal history of other diseases of the circulatory system (4) Thrombocytopenia: Status: Acute Code(s): D69.6 - Thrombocytopenia, unspecified Plan Dr. Galvan Intermittent chest pain -Patient has been having symptoms on and off for about the last 2 months -Radiates from his epigastrium up into his chest -Has pending GI consultation with Dr. Acevedo in May -Resolved at this time -EKG without any changes consistent with acute ischemia and all intervals are within normal limits -Obtain echocardiogram -Check serial troponins -Stress test in a.m. as long as troponin does not elevate -As needed sublingual nitroglycerin -Continue home medications including aspirin, statin, metoprolol -Case was discussed with Dr. Cleveland by myself and the ER physician Presyncope -Was associated with the above pain -Had carotid ultrasounds 2020 which showed less than 50% stenosis in the carotid arteries and patency with antegrade flow of the vertebral arteries -Feels fine at this time -Check TSH -Check electrolytes -If the above work-up for chest pain is negative will need a monitor at discharge Chronic thrombocytopenia -Counts are stable -Continue to monitor History of coronary artery disease -Stent placement 2010 -Continue aspirin -continue metoprolol -Continue statin Hypertension -Continue home metoprolol -Monitor blood pressure Hyperlipidemia -Check lipids -Continue atorvastatin GERD -Continue omeprazole DVT prophylaxis -Lovenox CODE STATUS -Full code as per discussion with patient and his family in the emergency department prior to admission MANAS Fitzgerald Intermittent chest pain ? History of coronary artery disease with stent placement in 2010 ? Most recent echo and exercise perfusion stress test in June 2020; ejection fraction on stress noted to be 71%. ? Carotid duplex ultrasound June 2021 with less than 50% stenosis with patent antegrade flow bilaterally ? Unprovoked episodes of chest heaviness occurring intermittently for the past few weeks, worse today ? EKG in ED shows no ST changes and serial troponins were normal ? Patient of [facility]; case discussed with Dr. Cleveland ? Obtain echo ? Serial troponins ? Plan for stress test ? Check Mg/Phos ? Continue home aspirin ? Sublingual nitroglycerin as needed for chest pain Chronic thrombocytopenia ? Platelet count 149, high for patient's baseline ? Trend CBCD History of coronary artery disease ? Cardiac diet ? Continue home aspirin ? Continue home statin therapy History of hypertension ? Blood pressure elevated in ED ? Continue home metoprolol ? Trend blood pressures History of hyperlipidemia ? Check lipid panel ? Continue home atorvastatin History of GERD ? Continue home omeprazole DVT prophylaxis ? Lovenox 40 mg subcu daily ? SCDs CODE STATUS ? Full code Medications at Discharge Home Medications aspirin 81 mg chewable tablet 81 mg PO DAILY 11/04/16 omeprazole 40 mg capsule,delayed release 40 mg PO DAILY 11/04/16 cyanocobalamin (vitamin B-12) 2,500 mcg sublingual tablet 2,500 mcg sublingual DAILY 01/02/19 cholecalciferol (vitamin D3) 25 mcg (1,000 unit) capsule 25 mcg PO DAILY 05/27/20 lactobacillus combination no.8 3 billion cell capsule (Adult Probiotic) 3,000 mmu cells PO DAILY 05/27/20 atorvastatin 10 mg tablet 10 mg PO DAILY cholesterol 04/02/22 metoprolol succinate 25 mg tablet,extended release 24 hr 12.5 mg PO DAILY 04/02/22 buspirone 5 mg tablet 5 mg PO BID #60 tabs 04/03/22 Hospital Course Operations None Procedures 2-D Echocardiogram and Nuclear stress test Summary of Care Provided Minutes Spent on Discharge: 36 Hospital Course: Mr. Bermudez is an 87-year-old white male who presented to the emergency department [facility] on 04/02/2022 for chest heaviness, diaphoresis, and lightheadedness with presyncope.? The patient reported he had COVID-19 approximately 1 month ago and since that point time he has had increased fatigue, weakness, intermittent diarrhea, and reduced appetite.? The patient initially reported increased chest heaviness for approximately the last 2 weeks however when further questioned he admitted that its been at least 2 months or longer.? He reported that it seems to start in his upper abdominal region and radiates up into his right chest.? He denied any association with oral intake or otherwise.? He stated it seems to come and go and was more like a heaviness sensation and denies any burning or sharp pain.? He complained of some associated diaphoresis and shortness of breath but denies any associated nausea or vomiting.? He stated today's episode was the most severe he has had since they started and that is why he presented to the emergency department. Vital signs upon presentation showed a temperature of 98.7, heart rate of 73, blood pressure of 148/73, respiratory rate of 18, and oxygen saturation of 96% on room air.? CBC showed chronic thrombocytopenia with a platelet count of 145 and erythrocytosis with a hemoglobin of 17 which appears to be close to his baseline.? His BMP was unremarkable other than some mild glucose elevation at 121 however this was not a fasting specimen.? His initial troponin was found to be 4.? His chest x-ray was negative for any acute events.? His EKG showed normal sinus rhythm without any ST-T wave changes concerning for acute ischemia and normal intervals. In the emergency department he was given aspirin and the case was discussed with the internal audit senior manager on-call, Dr. Cleveland, and he recommend the patient be admitted for repeat echocardiogram and evaluation with a stress test as long as the troponin remained in the normal range. His troponin was negative x3 at 4 each time. His echocardiogram showed an ejection fraction of 60% without any wall motion abnormality and trivial mitral, aortic, pulmonic valve insufficiency and mild tricuspid valve insufficiency with a right ventricular systolic pressure of 31 mmHg and no evidence of diastolic dysfunction. A stress test was performed on the morning of 04/03/2022. This showed resting and stress SPECT Cardiolite nuclear imaging with relative uniform tracer uptake and myocardial perfusion appearing within normal limits. His estimated EF was 60% on this exam as well. I did have an extensive discussion with both he and his regarding DNR as they had multiple questions about what DNR meant and how to proceed with DNR paperwork. I gave them DNR paperwork and requested they discussed this with her primary care physician and make sure they have it on record at their office as well as expressed their wishes and give paperwork to their children and keep paperwork in their house as well. The patient did express wanting to be a DNR CCA without need for intubation however he was going to consider it further and discuss things with his before making an extensive decision. The patient and his are also concerned as he is had increased anxiety since he had COVID-19 infection. I gave him a low-dose BuSpar prescription at 5 mg twice daily to initiate and instructed him to follow-up with his primary care physician with regards to efficacy and further intervention if needed. The patient states he has an appoint with Dr. Acevedo for GI concerns and I am wondering if his current chest pain was related to reflux or otherwise. This appointment is for May. I instructed him to make a follow-up appointment with his primary care physician within the next 2 to 4 weeks. Given the persistent lightheadedness an event monitor was ordered and will be mailed to the patient. The patient reported he has follow-up with Dr. Natasha fonseca. Discharge diagnoses: Intermittent chest pain Intermittent lightheadedness Chronic thrombocytopenia History of coronary artery disease History of hypertension Hyperlipidemia GERD Physical Exam Narrative No significant issues overnight. Had 1 episode of lightheadedness this morning however telemetry was reviewed and was normal at the time. Patient stated this has been ongoing on and off since he had COVID-19. His expresses interest in DNR paperwork and this was provided to him prior to discharge. They are saying he is having significant anxiety and requesting something to be started. Const alert, oriented x3, no apparent distress, average body habitus, no limitations, healthy appearing and well nourished Constitutional Narrative: White male very jovial and appropriately interactive lying in bed, appears comfortable nontoxic, at bedside General Appearance: cooperative, comfortable, well kempt and well developed Orientation / Consciousness: awake Exam Limitations: no limitations HEENT normocephalic, head/scalp atraumatic and moist oral mucous membranes Eyes PERRL, EOMs intact bilaterally and conjunctivae normal Eyes Narrative: No scleral icterus Neck no lymphadenopathy, supple, no JVD and no carotid bruits Resp normal respiratory effort, no retractions, no use of accessory muscles and clear to auscultation bilaterally Auscultation: Negative for crackles, rales, rhonchi or wheezes Cardio regular rate, regular rhythm, S1 normal heart sound, S2 normal heart sound, no murmurs, no rub, no gallops, no clicks and no JVD GI normal to inspection, nondistended, normoactive bowel sounds, soft to palpation, non-tender and non-distended; Negative for hepatosplenomegaly Extremity normal to inspection and no clubbing, cyanosis or edema Skin no rashes or lesions noted, no wounds, skin turgor normal, no jaundice, no petechiae and no mottling Neuro oriented x3, CN's II-XII intact bilaterally, moves all extremities and no focal motor deficits Neuro Narrative: No sensory deficits Sensorium / Orientation: awake, alert, oriented to person, oriented to place and oriented to time Speech: speech normal Psych affect normal Psych Narrative: Very pleasant and appropriately interactive Weight / BMI Weight Weight: 88.904 kg Body Mass Index (BMI) 26.6 ABG / Lab / Microbiology Data Result Diagrams: 04/03/22 06:40 04/03/22 06:40 Laboratory: Laboratory Results - last 24 hr 04/02/22 13:30: Troponin I High Sens 4 04/02/22 18:08: Troponin I High Sens 4 04/03/22 06:40: WBC 7.1, RBC 5.38, Hgb 17.1 H, Hct 50.3, MCV 93.5, MCH 31.8, MCHC 34.0, RDW Std Deviation 43.4, RDW Coeff of Juanita 12.7, Plt Count 138 L, MPV 9.9, Immature Gran % (Auto) 0.300, Neut % (Auto) 57.8, Lymph % (Auto) 30.8, Sweet Grass % (Auto) 8.7, Eos % (Auto) 2.3, Baso % (Auto) 0.1, Absolute Neuts (auto) 4.1, Absolute Lymphs (auto) 2.19, Nucleated RBC % 0 04/03/22 06:40: Sodium 140, Potassium 3.8, Chloride 105, Carbon Dioxide 29.0, Anion Gap 6, BUN 12, Creatinine 1.07, Estim Creat Clear Calc 54.39, Est GFR (MDRD) Af Amer 84, Est GFR (MDRD) Non-Af 70, BUN/Creatinine Ratio 11.2, Glucose 96, Calcium 9.0, Phosphorus 2.7, Magnesium 2.1, Triglycerides 123, Cholesterol 127, LDL Cholesterol 65, VLDL Cholesterol 25, HDL Cholesterol 37 L, TSH 5.06 H 04/03/22 06:40: Free T4 0.94 Radiography Diagnostic Testing: Radiology Impression Chest X-Ray 04/02/22 12:04 IMPRESSION: Stable scarring at the left lung base. No acute abnormality is seen. Electronically Signed: Ganesh Kent MD at 12:37 EDT , Echocardiogram 04/02/22 15:11 Interpretation Summary The study was technically difficult. Left ventricular systolic function is normal. The estimated ejection fraction is 60 %. There is mild mitral annular calcification. Mild diffuse mitral valve thickening. Trivial mitral valve insufficiency. Mild tricuspid valve insufficiency. Trivial aortic valve insufficiency. Trivial pulmonic valve insufficiency. Right ventricular systolic pressure estimated to be 31 mmHg. No evidence for diastolic dysfunction. Ordering Physician: Aidee Galvan Referring Physician: KATALINA IYER Performed By: Melissa Reed RDCS D/C Instructions Discharge Diet: Low fat / Low cholesterol Discharge Activity: Return to Normal Activity Meaningful Use Info Meaningful Use Diagnoses (Choose all that apply): None applicable Discharge Plan Admission Admit Date/Time: 04/02/22 14:56 Primary Reason for Your Visit: Chest pain Attending Provider: Aidee Galvan Primary Care Provider: Katalina Iyer Discharge Orders/Prescriptions Prescriptions: New buspirone 5 mg tablet 5 mg PO BID Qty: 60 0RF Continued cholecalciferol (vitamin D3) 25 mcg (1,000 unit) capsule 25 mcg PO DAILY Adult Probiotic 3 billion cell capsule 3,000 mmu cells PO DAILY Rx Instructions: administer with a meal omeprazole 40 MG capsule 40 mg PO DAILY Label Comments: ACID REFLUX MED aspirin 81 MG tablet,chewable 81 mg PO DAILY Label Comments: BLOOD THINNER cyanocobalamin (vitamin B-12) 2,500 MCG tablet, sublingual 2,500 mcg sublingual DAILY metoprolol succinate 25 mg tablet extended release 24 hr 12.5 mg PO DAILY atorvastatin 10 mg tablet 10 mg PO DAILY Other Ambulatory Orders: 30 Day Event Recorder Preventi (Urgent) Location: None Selected Ordered By: Dr. Aidee Galvan Referrals / Follow Up: Katalina Iyer, [employer] [Primary Care Provider] - Within 1 Month Lisa Robles NP, [employer] [NON-STAFF] - Disposition Disposition (needs filled in before D/C Order can be placed): Home, Self Care Charges/Coding Visit Charges Inpatient E&M: 28955 Disch Hosp
== END 2022-04-03 13:23 | disposition home or self-care (01) ==
LOC: ED 14:42 → PCU 15:21
PROVIDERS: Admitting Provider Internal Medicine; Emergency Provider Emergency Medicine; PCP Nurse Practitioner Family; Visit Provider Internal Medicine
DX: R07.89 Other chest pain (principal); I73.9 Peripheral vascular disease, unspecified; D69.6 Thrombocytopenia, unspecified; R53.83 Other fatigue; Z79.82 Long term (current) use of aspirin; R06.02 Shortness of breath; R53.1 Weakness; K21.9 Gastro-esophageal reflux disease without esophagitis; I10 Essential (primary) hypertension; E78.5 Hyperlipidemia, unspecified; I25.10 Atherosclerotic heart disease of native coronary artery without angina pectoris; R55 Syncope and collapse; R42 Dizziness and giddiness; R19.7 Diarrhea, unspecified; Z86.16 Personal history of COVID-19; Z95.5 Presence of coronary angioplasty implant and graft; Z79.899 Other long term (current) drug therapy; Z86.711 Personal history of pulmonary embolism
CPT/HCPCS: 36415; 71045; 78452; 80048; 80061; 83735; 84100; 84439; 84443; 84484; 85025; 93005; 93017; 93306; 99218; 99251; 99285; A9500; A4216; G0378; G0463; J2785

== ENCOUNTER → 2022-06-30 | Outpatient (CLI) | payer MEDICARE, SELFPAY ==
--- NOTE | 2022-06-30 13:35 | CT_ITS ---
STUDY: CT BRAIN WITHOUT CONTRAST REASON FOR EXAM: Male, 87 years old. MEMORY LOSS RADIATION DOSAGE (If Supplied By Facility): CTDIvol = ( 47.06 ) mGy, DLP = ( 907.97 ) mGycm TECHNIQUE: Transaxial CT imaging of the brain was performed without administration of intravenous contrast material. Individualized dose optimization techniques were used for this CT. COMPARISON: Comparison is made with prior examination dated 09/04/2013. FINDINGS: Normal soft tissue structures. Normal calvarium. There is mild cerebral atrophy with widening of the extra-axial spaces and ventricular dilatation. Normal white matter tracts of the cerebral hemispheres. Normal basal ganglia and thalami. Normal brainstem. Normal cerebellum. There is no intracranial hemorrhage. There are no findings of an acute ischemic infarction. Atherosclerotic calcification of the cavernous portions of the internal carotid arteries bilaterally. Normal visualized paranasal sinuses. CT/Brain/Head without Contrast IMPRESSION: Chronic involutional changes of the brain. Electronically Signed: Ganesh Kent MD at 14:07 EDT ,
[2022-07-02 17:30] LABS: CREATININE FINGERSTICK < 0.9 mg/dL (0.70-1.30); EGFR FINGERSTICK > 60.0000 mL/min (>60)
== END | disposition home or self-care (01) ==
LOC: CT 13:32
PROVIDERS: PCP Nurse Practitioner Family; Referring Provider Nurse Practitioner Family; Visit Provider Nurse Practitioner Family
DX: R41.3 Other amnesia (principal)
CPT/HCPCS: 70450

== ENCOUNTER → 2022-07-02 | Outpatient (CLI) | payer MEDICARE, SELFPAY ==
--- NOTE | 2022-07-02 17:03 | MRI_ITS ---
STUDY: MRI BRAIN WITH AND WITHOUT CONTRAST REASON FOR EXAM: Male, 87 years old. decreased memory/amnesia, HALLUCINATIONS--- all started after haing covid TECHNIQUE: Standardized multiplanar fat and water weighted pulse sequences were obtained. IV 19ml Clariscan was administered for the contrast portion of the examination. COMPARISON: CT of the brain 06/30/2022 FINDINGS: Moderate atrophy and mild periventricular white matter ischemic changes without mass effect or restricted diffusion.. Normal bilateral basal ganglia. Normal thalami. There is no extra-axial fluid accumulation. Normal flow voids within the major intracranial circulation suggesting patency by spin echo criteria. Normal venous enhancement. There is no enhancing intra-axial or extra-axial abnormality. Normal sella turcica, pituitary gland, infundibular stalk, optic chiasm and hypothalamus. Normal tectal plate and pineal gland. Normal midbrain, harrison and medulla. Minor focal chronic ischemic changes within the cerebellar hemisphere bilaterally. Normal basal cisterns. Normal bilateral temporal bones. Normal bilateral internal auditory canals. Postsurgical changes of the orbits.. Normal visualized paranasal sinuses. Normal calvarium and skull base. Normal visualized soft tissue structures. Normal visualized upper cervical spine. MRI/Brain W/WO Contrast IMPRESSION: Moderate atrophy and mild periventricular white matter ischemic changes without evidence for acute infarct.. Minor chronic ischemic changes within the cerebellar hemispheres No focal enhancing lesions following contrast administration. Electronically Signed: Kelechi Mario MD at 18:59 EDT ,
== END | disposition home or self-care (01) ==
LOC: MRI 16:59
PROVIDERS: PCP Nurse Practitioner Family; Visit Provider Nurse Practitioner Family
DX: R41.3 Other amnesia (principal)
CPT/HCPCS: 70553; A9575

== ENCOUNTER 2022-07-13 12:44 | Day surgery (SDC) | payer MEDICARE, SELFPAY ==
[2022-07-13] MEDS: Lactated Ringers 1,000 ML 15 ML IV (13:15)
[2022-07-13 13:50] VITALS: BP 140/82; PULSE 77; RESP 16; TEMP 37.6; O2SAT 96; BMI 26.9
--- NOTE | 2022-07-13 14:07 | PCM.HP.BLA ---
History and Physical Date of Admission: 07/13/22 BRANDEN MERCEDES, is an 87 M who presents to the office today accompanied by his for food sticking in esophagus intermittently, usually meat is most problematic. He and his made the appt because they saw the article on Esoguard screening for Muhammad's. They deny that his dysphagia has worsened recently. Used to see Dr Noland at [facility] years ago, hx of esophageal dilation then. On omeprazole 40 mg daily, no heartburn. No ED visits in many yrs for food retention in esophagus. Drinks lots of water with meals. Doesn't use lower dentures when he eats so it can be hard to chew up food. Denies nausea, vomiting, chest pain, abd pain, diarrhea, constipation, melena, hematochezia, weight loss, poor appetite, early satiety. [address] Giraldo--Minimal distal esophagitis, moderate hiatal hernia, mild chronic antral gastritis, and minimal acute duodenitis. Negative for Muhammad's. ROS Const Constitutional: Positive for fatigue ENT ENT: Positive for difficulty swallowing Gastro GI: Positive for bloating, diarrhea, difficulty swallowing and excessive flatus; No abdominal pain, belching, change in bowel habits, change in stool character, coffee ground emesis, constipation, cramping, heartburn, feeling full early, incontinent of stools, Vomiting blood/hematemesis, Blood in stool, loose stools, Black,tarry stools, nausea/dyspepsia, pain with swallowing, vomiting or other Musc Musculoskeletal: Positive for stiffness and leg pain at night; No joint pain Skin Skin: No yellowing of the eye or itchy eyes Psych Psychiatric: Positive for anxiety and No depression Endo Endocrine: Positive for fatigue Aller/Imm Allergy/Immunologic: No itchy eyes Sarthak/Lymp Hematologic/Lymphatic: Positive for easy bruising; No easy bleeding Exam Const General: cooperative and comfortable Nutritional Appearance: overweight Orientation: alert, awake and oriented x3 Quality Reporting Tobacco Screening ([facility] 138) Smoking Status: Never smoker Assessment and Plan Assessment and Plan (1) GERD (gastroesophageal reflux disease): ?Qualifiers: ?Esophagitis presence:?without esophagitis? Qualified Code(s):?K21.9 - Gastro-esophageal reflux disease without esophagitis (2) Dysphagia: ?Status:?Acute ?Plan: 87 yr old male with GERD, hiatal hernia, longstanding dysphagia with remote hx of esophageal dilation. We discussed getting an esophagram but he declines. We discussed that Esoguard screening for Muhammad's isn't needed since he will have an EGD. Dr Acevedo will evaluate for esophageal stricture or other cause of dysphagia, and will biopsy for Muhammad's. F/u 2 wks after that to discuss results. I have re-examined the patient. There are no clinical changes since date of exam.
--- NOTE | 2022-07-13 14:15 | EGD_PTH ---
PATIENT: PATIENCE MERCEDES LOC: EN U#:[id number] AGE/SX: 87/M ROOM: RE07/13/[address]: Dr. Daniel Acevedo DO : 1935 BED: DIS: 07/13/2022 SPEC #: [id number] RECD: 07/13/22 16:25 STATUS: HOMARAngelika CATHI #: [id number] WES: 07/13/22 14:[address]: Daniel Acevedo DEPT: SURGICAL PATHOLOGY RECD BY: Ben Osuna ENTERED: 07/14/22 09:25 SP TYPE: EGD BIOPSY OT DR: Zully Iyer, SURFACING TECHNICIAN-C Tissues: Esophagus, NOS Procedures: Special Stain Group II Surgery Specimen Level IV Alcian Blue/PAS (control) HEADER OPERATION: EGD, dilation, biopsies ([facility]) PRE-OP DIAGNOSIS: GERD, dysphagia TISSUE SUBMITTED: Distal esophagus biopsy MICROSCOPIC DIAGNOSIS Distal esophagus, biopsy: Gastroesophageal junctional mucosa with chronic inflammation. Focal changes of reflux. No evidence of goblet cell metaplasia. See comment. AM:merari 07/15/2022 COMMENT Alcian blue/PAS stain with matched control supports the above diagnosis. MICROSCOPIC DESCRIPTION Slides are reviewed. GROSS DESCRIPTION Received in fixative is one container labeled with the patient's name and designated distal esophagus biopsy. The specimen consists of multiple irregular fragments of light cr soft tissue that in aggregate measure 0.6 x 0.6 x 0.1 cm. The specimen is totally submitted in one cassette. / SJ:merari 07/14/2022 TC:3 CPT: 66618, 75266
[2022-07-13 15:45] VITALS: BP 115/94; BP 140/82; PULSE 84; RESP 18; TEMP 37; O2SAT 98
[2022-07-13 15:50] VITALS: BP 138/83; BP 140/82; PULSE 87; RESP 18; O2SAT 97
--- NOTE | 2022-07-13 15:52 | OP.EGD_ITS ---
Patient Name: Pravin Holden Procedure Date: 07/13/2022 3:15 PM Date of : 1935 Age: 87 Procedure: Upper GI endoscopy Indications: Dysphagia Providers: Daniel Acevedo DO Medicines: Monitored Anesthesia Care Patient Profile: This is an 87 year old male. Refer to note in patient chart for documentation of history and physical. Complications: No immediate complications. Procedure: Pre-Anesthesia Assessment: - Prior to the procedure, a History and Physical was performed, and patient medications and allergies were reviewed. The patient is competent. The risks and benefits of the procedure and the sedation options and risks were discussed with the patient. All questions were answered and informed consent was obtained. Patient identification and proposed procedure were verified by the physician in the pre-procedure area. Mental Status Examination: alert and oriented. Airway Examination: normal oropharyngeal airway and neck mobility. Respiratory Examination: clear to auscultation. CV Examination: normal. Prophylactic Antibiotics: The patient does not require prophylactic antibiotics. Prior Anticoagulants: The patient has taken no previous anticoagulant or antiplatelet agents. ASA Grade Assessment: II - A patient with mild systemic disease. After reviewing the risks and benefits, the patient was deemed in satisfactory condition to undergo the procedure. The anesthesia plan was to use monitored anesthesia care (MAC). Immediately prior to administration of medications, the patient was re-assessed for adequacy to receive sedatives. The heart rate, respiratory rate, oxygen saturations, blood pressure, adequacy of pulmonary ventilation, and response to care were monitored throughout the procedure. The physical status of the patient was re-assessed after the procedure. After obtaining informed consent, the endoscope was passed under direct vision. Throughout the procedure, the patient's blood pressure, pulse, and oxygen saturations were monitored continuously. The Endoscope was introduced through the mouth, and advanced to the second part of duodenum. The upper GI endoscopy was accomplished without difficulty. The patient tolerated the procedure well. Scope In: Scope Out: 3:41:47 PM Findings: LA Grade A (one or more mucosal breaks less than 5 mm, not extending between tops of 2 mucosal folds) esophagitis with no bleeding was found 36 to 38 cm from the incisors. Biopsies were taken with a cold forceps for histology. Verification of patient identification for the specimen was done. Estimated blood loss was minimal. A moderate Schatzki ring was found in the lower third of the esophagus. A guidewire was placed and the scope was withdrawn. Dilation was performed with a Savary dilator with no resistance at 60 Fr. The dilation site was examined and showed moderate improvement in luminal narrowing. Estimated blood loss was minimal. A large hiatal hernia was present. A few 5 mm sessile polyps with no bleeding and no stigmata of recent bleeding were found in the gastric fundus. The first portion of the duodenum was normal. Impression: - LA Grade A reflux esophagitis. Biopsied. - Moderate Schatzki ring. Dilated. - Large hiatal hernia. - A few gastric polyps. - Normal first portion of the duodenum. Recommendation: - Discharge patient to home. - Resume previous diet. - Continue present medications. - Await pathology results. Procedure Code(s): --- Professional --- 41885, Esophagogastroduodenoscopy, flexible, transoral; with insertion of guide wire followed by passage of dilator(s) through esophagus over guide wire 26310, 59,51, Esophagogastroduodenoscopy, flexible, transoral; with biopsy, single or multiple CPT copyright 2017 [employer]. All rights reserved. The codes documented in this report are preliminary and upon user interface developer review may be revised to meet current compliance requirements. Daniel Acevedo DO 07/13/2022 3:52:01 PM This report has been signed electronically. Number of Addenda: 0 Note Initiated On: 07/13/2022 3:15 PM
--- NOTE | 2022-07-13 15:53 | OP.CCLET_ITS ---
07/13/2022 Justin Zapata Re : Upper GI endoscopy procedure for Pravin Holden Dear Jaylon This procedure was performed on Wednesday, July 13, 2022. My impressions and recommendations are as follows: Impressions : - LA Grade A reflux esophagitis. Biopsied. - Moderate Schatzki ring. Dilated. - Large hiatal hernia. - A few gastric polyps. - Normal first portion of the duodenum. Recommendations : - Discharge patient to home. - Resume previous diet. - Continue present medications. - Await pathology results. My findings are described in the full procedure note, which is enclosed. If I can be of further assistance, please feel free to contact me at . Sincerely, Daniel Acevedo, 07/13/2022 3:52:01 PM This report has been signed electronically.
[2022-07-13 15:55] VITALS: BP 124/83; BP 140/82; PULSE 84; RESP 18; O2SAT 97
[2022-07-13 16:00] VITALS: BP 140/82; BP 144/85; PULSE 86; RESP 18; TEMP 36.7; O2SAT 98
[2022-07-13 16:20] VITALS: BP 140/82
== END 2022-07-13 16:30 | disposition home or self-care (01) ==
LOC: EN 12:49 → AC 12:52
PROVIDERS: PCP Nurse Practitioner Family; Referring Provider Nurse Practitioner Family; Visit Provider Internal Medicine Gastroenterology
PROC: 0DJ08ZZ Inspection of Upper Intestinal Tract, Via Natural or Artificial Opening Endoscopic (ICD-10-PCS; CPT 43235; principal; 2022-07-13 14:10)
DX: K22.2 Esophageal obstruction (principal); K44.9 Diaphragmatic hernia without obstruction or gangrene; K21.00 Gastro-esophageal reflux disease with esophagitis, without bleeding; K31.7 Polyp of stomach and duodenum; I25.10 Atherosclerotic heart disease of native coronary artery without angina pectoris; I10 Essential (primary) hypertension; E78.00 Pure hypercholesterolemia, unspecified; Z95.5 Presence of coronary angioplasty implant and graft; Z79.82 Long term (current) use of aspirin; Z79.899 Other long term (current) drug therapy
CPT/HCPCS: 43248; 43239; 88305; 88313; J7120; C1769; J2405; J3490

== ENCOUNTER 2023-07-07 11:11 | Day surgery (SDC) | payer MEDICARE, SELFPAY ==
[2023-07-07] VITALS (7 sets, daily range): BP systolic 118–133; BP diastolic 75–85; PULSE 72–79; RESP 16–18; TEMP 36–37; O2SAT 96–100; BMI 27.1
--- NOTE | 2023-07-07 | ESO_PTH ---
PATIENT: PATIENCE MERCEDES LOC: EN U#:[id number] AGE/SX: 88/M ROOM: RE07/07/[address]: Dr. Daniel Acevedo DO : 1935 BED: DIS: 07/07/2023 SPEC #: [id number] RECD: 07/07/23 14:17 STATUS: KIMMIE CATHI #: [id number] WES: 07/07/23 00:[address]: Daniel Acevedo DEPT: SURGICAL PATHOLOGY RECD BY: Glen Copeland ENTERED: 07/07/23 14:17 SP TYPE: CARLOS CROW DR: Zully Iyer, [employer]AT[employer] PROFESSIONAL-C Tissues: Esophagus, NOS Procedures: Special Stain Group II Surgery Specimen Level IV Alcian Blue/PAS (control) HEADER OPERATION: EGD with biopsy and dilatation PRE-OP DIAGNOSIS: Dysphagia TISSUE SUBMITTED: Distal esophagus biopsy MICROSCOPIC DIAGNOSIS Distal esophagus, biopsy: Fragments of gastroesophageal mucosa with chronic inflammation. Intestinal metaplasia (goblet cell metaplasia) is not identified. See comment. MARCELLO:merari 07/08/2023 COMMENT Alcian blue/PAS stain with matched control is used in the evaluation of the specimen. MICROSCOPIC DESCRIPTION Slides are reviewed. GROSS DESCRIPTION Received in fixative is one container labeled with the patient's name and designated distal esophagus biopsy. The specimen consists of multiple irregular fragments of light cr soft tissue that in aggregate measure 1.0 x 0.3 x 0.1 cm. The specimen is totally submitted in one cassette. / MARCELLO:merari 07/07/2023 TC:3 CPT: 80632, 06035
[2023-07-07] MEDS: Lactated Ringers 1,000 ML 15 ML IV (11:57)
--- NOTE | 2023-07-07 12:20 | HP.PCM_ITS ---
History and Physical Date of Admission: 07/07/23 food getting stuck Details: PRAVIN MERCEDES, is a 87 M who presents to the office today for a follow up visit. Pravin established with this clinic on 05.14.22 for a history of dysphagia. Patient has a history of food sticking in esophagus intermittently, usually meat is most problematic. He and his made the appt because they saw the article on Esoguard screening for Muhammad's. They deny that his dysphagia has worsened recently. Used to see Dr Noland at [facility] years ago, hx of esophageal dilation then. On omeprazole 40 mg daily, no heartburn. No ED visits in many yrs for food retention in esophagus. Drinks lots of water with meals. Doesn't use lower dentures when he eats so it can be hard to chew up food. Denies nausea, vomiting, chest pain, abd pain, diarrhea, constipation, melena, hematochezia, weight loss, poor appetite, early satiety. [address] Giraldo--Minimal distal esophagitis, moderate hiatal hernia, mild chronic antral gastritis, and minimal acute duodenitis. Negative for Muhammad's. Plan last visit 05.14.22- EGD to evaluate for esophageal stricture and Muhammad's EGD 07.13.22 showed ?LA Grade A reflux esophagitis. Biopsied. Moderate Schatzki ring. Dilated. Large hiatal hernia. A few gastric polyps. Normal first portion of the duodenum. Pathology showed gastroesophageal junctional mucosa with chronic inflammation, focal changes of reflux, no evidence of goblet cell metaplasia. Patient today reports that he has been doing well since the scope. Denies any episodes of dysphagia or food getting stuck in esophagus. ROS Const Constitutional: Positive for fatigue; No fever(s), frequent falls, headache(s) or weight change ENT ENT: No headache(s) or difficulty swallowing Cardio Cardiology: No leg pain with exertion Gastro GI: Positive for diarrhea; No abdominal pain, bloating, change in bowel habits, constipation, heartburn, difficulty swallowing, Vomiting blood/hematemesis, Blood in stool, nausea/dyspepsia or vomiting Musc Musculoskeletal: No abnormal gait, joint pain, back pain, joint swelling, muscle cramps, muscle weakness, numbness, stiffness, tingling, Arthritis, sciatica, leg pain at night or leg pain with exertion Skin Skin: Positive for dry skin and itchy eyes; No lesions or rash Neuro Neurology: No abnormal gait, dizziness, frequent falls, headache(s), numbness, tingling, tremor(s), Increased tone in limbs, paralysis or seizures Psych Psychiatric: Positive for anxiety, No depression, No paranoia, No Behavioral Problems, No Compulsive Behavior, No hyperactivity, No inattentiveness, No obsessions/compulsions, Positive for Temper Tantrums and No suicidal ideation Endo Endocrine: Positive for fatigue; No weight change Aller/Imm Allergy/Immunologic: Positive for itchy eyes Sarthak/Lymp Hematologic/Lymphatic: No easy bleeding or easy bruising Exam Const General: cooperative and comfortable Nutritional Appearance: overweight Orientation: alert, awake and oriented x3 Quality Reporting Tobacco Screening ([facility] 138) Smoking Status: Never smoker Assessment and Plan Assessment and Plan (1) Dysphagia: Status: Acute Plan: His esophageal dysphagia is a lot better. He is not have any trouble swallowing solids, liquids or pills. He is not having any chest pain or shortness of breath. He was discovered to have a sliding large hiatal hernia. He also had a Schatzki's ring. This was dilated with savory dilator. He has had no problems since the procedure. He is on omeprazole 40 mg a day and is not having any reflux symptoms. Hopefully he will be able to maintain without needing any surgical intervention in the future. I have examined the patient and the H&P has been reviewed. There are no clinical changes since date of exam.
--- NOTE | 2023-07-07 12:46 | OP.EGD_ITS ---
Patient Name: Pravin Holden Procedure Date: 07/07/2023 12:22 PM Date of : 1935 Age: 88 Procedure: Upper GI endoscopy Indications: Dysphagia Providers: Daniel Acevedo DO Medicines: Monitored Anesthesia Care Patient Profile: This is an 88 year old male. Refer to note in patient chart for documentation of history and physical. Patient has symptoms of dysphagia with solids. Complications: No immediate complications. Procedure: Pre-Anesthesia Assessment: - Prior to the procedure, a History and Physical was performed, and patient medications and allergies were reviewed. The risks and benefits of the procedure and the sedation options and risks were discussed with the patient. All questions were answered and informed consent was obtained. Patient identification and proposed procedure were verified by the physician in the pre-procedure area. Mental Status Examination: alert and oriented. Airway Examination: normal oropharyngeal airway and neck mobility. Respiratory Examination: clear to auscultation. CV Examination: normal. Prophylactic Antibiotics: The patient does not require prophylactic antibiotics. Prior Anticoagulants: The patient has taken no anticoagulant or antiplatelet agents. After reviewing the risks and benefits, the patient was deemed in satisfactory condition to undergo the procedure. The anesthesia plan was to use monitored anesthesia care (MAC). Immediately prior to administration of medications, the patient was re-assessed for adequacy to receive sedatives. The heart rate, respiratory rate, oxygen saturations, blood pressure, adequacy of pulmonary ventilation, and response to care were monitored throughout the procedure. The physical status of the patient was re-assessed after the procedure. After obtaining informed consent, the endoscope was passed under direct vision. Throughout the procedure, the patient's blood pressure, pulse, and oxygen saturations were monitored continuously. The gastroscope was introduced through the mouth, and advanced to the second part of duodenum. The upper GI endoscopy was accomplished without difficulty. The patient tolerated the procedure well. Scope In: 12:35:30 PM Scope Out: 12:40:49 PM Total Procedure Duration Time 0 hours 5 minutes 19 seconds Findings: A non-bleeding diverticulum with a small opening and no stigmata of recent bleeding was found in the upper third of the esophagus. The examined esophagus was mildly tortuous. Abnormal motility was noted at the cricopharyngeus. The cricopharyngeus was abnormal. There is spasticity of the esophageal body. The distal esophagus/lower esophageal sphincter is patulous. Tertiary peristaltic waves are noted. The Z-line was irregular and was found 40 cm from the incisors. Biopsies were taken with a cold forceps for histology. Verification of patient identification for the specimen was done. Estimated blood loss was minimal. A moderate Schatzki ring was found in the lower third of the esophagus. A guidewire was placed and the scope was withdrawn. Dilation was performed with a Savary dilator with no resistance at 54 Fr. The dilation site was examined and showed moderate improvement in luminal narrowing. A medium-sized hiatal hernia was present. A few 5 mm hyperplastic polyps with no bleeding and no stigmata of recent bleeding were found in the gastric body. No gross lesions were noted in the first portion of the duodenum. 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 - Tortuous esophagus. - Abnormal esophageal motility, suspicious for esophageal spasm. - Z-line irregular, 40 cm from the incisors. Biopsied. - Moderate Schatzki ring. Dilated. - Medium-sized hiatal hernia. - A few gastric polyps. - No gross lesions in the first portion of the duodenum. Recommendation: - Discharge patient to home. - Resume previous diet. - Continue present medications. - Await pathology results. Procedure Code(s): --- Professional --- 03195, Esophagogastroduodenoscopy, flexible, transoral; with insertion of guide wire followed by passage of dilator(s) through esophagus over guide wire 62613, 59,51, Esophagogastroduodenoscopy, flexible, transoral; with biopsy, single or multiple CPT copyright 2021 [employer]. All rights reserved. The codes documented in this report are preliminary and upon furniture duster review may be revised to meet current compliance requirements. Daniel Acevedo DO 07/07/2023 12:46:51 PM This report has been signed electronically. Number of Addenda: 0 Note Initiated On: 07/07/2023 12:22 PM
--- NOTE | 2023-07-07 12:47 | OP.CCLET_ITS ---
07/07/2023 Justin Zapata Re : Upper GI endoscopy procedure for Pravin Holden Dear Jaylon This procedure was performed on July. 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 - Tortuous esophagus. - Abnormal esophageal motility, suspicious for esophageal spasm. - Z-line irregular, 40 cm from the incisors. Biopsied. - Moderate Schatzki ring. Dilated. - Medium-sized hiatal hernia. - A few gastric polyps. - No gross lesions in the first portion of the duodenum. Recommendations : - Discharge patient to home. - Resume previous diet. - Continue present medications. - Await pathology results. My findings are described in the full procedure note, which is enclosed. If I can be of further assistance, please feel free to contact me at . Sincerely, Daniel Acevedo, 07/07/2023 12:46:51 PM This report has been signed electronically.
== END 2023-07-07 13:29 | disposition home or self-care (01) ==
LOC: EN 11:17 → AC 11:18
PROVIDERS: PCP Nurse Practitioner Family; Referring Provider Nurse Practitioner Family; Visit Provider Internal Medicine Gastroenterology
PROC: 0DJ08ZZ Inspection of Upper Intestinal Tract, Via Natural or Artificial Opening Endoscopic (ICD-10-PCS; CPT 43235; principal; 2023-07-07 12:25)
DX: K22.2 Esophageal obstruction (principal); K21.00 Gastro-esophageal reflux disease with esophagitis, without bleeding; R13.10 Dysphagia, unspecified; K22.89 Other specified disease of esophagus; K44.9 Diaphragmatic hernia without obstruction or gangrene; K22.5 Diverticulum of esophagus, acquired; K31.7 Polyp of stomach and duodenum; I25.10 Atherosclerotic heart disease of native coronary artery without angina pectoris; E78.00 Pure hypercholesterolemia, unspecified; I10 Essential (primary) hypertension; Z79.899 Other long term (current) drug therapy; Z79.82 Long term (current) use of aspirin; Z95.5 Presence of coronary angioplasty implant and graft; Z86.711 Personal history of pulmonary embolism
CPT/HCPCS: 43239; 43248; 88305; 88313; J7120; C1769; J2405

== ENCOUNTER 2024-03-06 12:44 | Day surgery (SDC) | payer MEDICARE, SELFPAY ==
[2024-03-06] VITALS (8 sets, daily range): BP systolic 108–140; BP diastolic 64–82; PULSE 82–93; RESP 16–18; TEMP 36.1–37.6; O2SAT 94–98; BMI 27.5
[2024-03-06] MEDS: Lactated Ringers 1,000 ML 15 ML IV (13:13)
--- NOTE | 2024-03-06 13:13 | HP.PCM_ITS ---
History and Physical Date of Admission: 03/06/24 food getting stuck Details: PRAVIN MERCEDES, is a 87 M who presents to the office today for a follow up visit. Pravin established with this clinic on 05.14.22 for a history of dysphagia. Patient has a history of food sticking in esophagus intermittently, usually meat is most problematic. He and his made the appt because they saw the article on Esoguard screening for Muhammad's. They deny that his dysphagia has worsened recently. Used to see Dr Noland at [facility] years ago, hx of esophageal dilation then. On omeprazole 40 mg daily, no heartburn. No ED visits in many yrs for food retention in esophagus. Drinks lots of water with meals. Doesn't use lower dentures when he eats so it can be hard to chew up food. Denies nausea, vomiting, chest pain, abd pain, diarrhea, constipation, melena, hematochezia, weight loss, poor appetite, early satiety. [address] Giraldo--Minimal distal esophagitis, moderate hiatal hernia, mild chronic antral gastritis, and minimal acute duodenitis. Negative for Muhammad's. Plan last visit 05.14.22- EGD to evaluate for esophageal stricture and Muhammad's EGD 07.13.22 showed ?LA Grade A reflux esophagitis. Biopsied. Moderate Schatzki ring. Dilated. Large hiatal hernia. A few gastric polyps. Normal first portion of the duodenum. Pathology showed gastroesophageal junctional mucosa with chronic inflammation, focal changes of reflux, no evidence of goblet cell metaplasia. Patient today reports that he has been doing well since the scope. Denies any episodes of dysphagia or food getting stuck in esophagus. ROS Const Constitutional: Positive for fatigue; No fever(s), frequent falls, headache(s) or weight change ENT ENT: No headache(s) or difficulty swallowing Cardio Cardiology: No leg pain with exertion Gastro GI: Positive for diarrhea; No abdominal pain, bloating, change in bowel habits, constipation, heartburn, difficulty swallowing, Vomiting blood/hematemesis, Blood in stool, nausea/dyspepsia or vomiting Musc Musculoskeletal: No abnormal gait, joint pain, back pain, joint swelling, muscle cramps, muscle weakness, numbness, stiffness, tingling, Arthritis, sciatica, leg pain at night or leg pain with exertion Skin Skin: Positive for dry skin and itchy eyes; No lesions or rash Neuro Neurology: No abnormal gait, dizziness, frequent falls, headache(s), numbness, tingling, tremor(s), Increased tone in limbs, paralysis or seizures Psych Psychiatric: Positive for anxiety, No depression, No paranoia, No Behavioral Problems, No Compulsive Behavior, No hyperactivity, No inattentiveness, No obsessions/compulsions, Positive for Temper Tantrums and No suicidal ideation Endo Endocrine: Positive for fatigue; No weight change Aller/Imm Allergy/Immunologic: Positive for itchy eyes Sarthak/Lymp Hematologic/Lymphatic: No easy bleeding or easy bruising Exam Const General: cooperative and comfortable Nutritional Appearance: overweight Orientation: alert, awake and oriented x3 Quality Reporting Tobacco Screening ([facility] 138) Smoking Status: Never smoker Assessment and Plan Assessment and Plan (1) Dysphagia: Status: Acute Plan: His esophageal dysphagia is a lot better. He is not have any trouble swallowing solids, liquids or pills. He is not having any chest pain or shortness of breath. He was discovered to have a sliding large hiatal hernia. He also had a Schatzki's ring. This was dilated with savory dilator. He has had no problems since the procedure. He is on omeprazole 40 mg a day and is not having any reflux symptoms. Hopefully he will be able to maintain without needing any surgical intervention in the future. I have examined the patient and the H&P has been reviewed. There are no clinical changes since date of exam.
--- NOTE | 2024-03-06 13:39 | PCM.PRE.AN2 ---
ASA Classification ASA Classification ASA Classification: 3 Pre-Assessment* Diagnosis/Proposed Procedure Planned Operative Procedure(s): EGD Anesthesia History History Obtained from:: Patient and Chart Anesthesia History - mental health advanced practice nurse: Anesthesia History - mental health advanced practice nurse Hx Hospitalization No 03/02/24 11:29 Any Problems With Anesthesia No 03/02/24 11:29 Cholinesterase deficiency No 03/02/24 11:29 You/Your Family Experience No 03/02/24 11:29 fever (hyperthermia) with Relationship Recent Exposure to Contagious No 03/06/24 13:11 Disease Does patient have nerve No 03/02/24 11:29 stimulator Patient instructed to have device shut off --Does patient have Pacemaker No 03/06/24 13:11 or ICD? When Was Last Pacemaker Check QUESTION #4 FULL TEXT: You/Your Family Experience fever (hyperthermia) with Anesthesia Airway/Respiratory Assessment Mouth opens (cm): >3 Mallampati Score: I Teeth Condition: Dentures (Out) Comment: Neck- Full range of motion Respiratory Assessment - mental health advanced practice nurse: Respiratory Tract Infection Hx - mental health advanced practice nurse Hx Respiratory Tract Infection No 03/02/24 11:29 STOP Sleep Apnea STOP Sleep Apnea - mental health advanced practice nurse: STOP Sleep Apnea - mental health advanced practice nurse Hx Hypertension Yes: OFF MED PER PCP FOR 03/02/24 11:29 HYPOTENSION Hx Sleep Apnea Yes 03/02/24 11:29 CPAP Yes: NON COMPLIANT 03/02/24 11:29 BIPAP No 03/02/24 11:29 Do you snore loudly (louder than talking or can be heard Do you often feel tired/ fatigued/ sleepy during daytime? Has anyone observed you stop breathing during sleep? STOP Results Positive 03/02/24 11:29 QUESTION #5 FULL TEXT : Do you snore loudly (louder than talking or can be heard through closed doors)? Tobacco Use History Tobacco Use History - mental health advanced practice nurse: Tobacco Use Histor - mental health advanced practice nurse Tobacco Use Smoking Status Never smoker 03/02/24 11:29 Hx Tobacco Use No 03/02/24 11:29 Years Smoking Packs Smoked per Day Smoking Cessation Date was within the last 15 years Hx Smoking Cessation Date Hx Smoking Cessation Counseling /Reproduction History /Reproductive History - mental health advanced practice nurse: /Reproductive Hx- mental health advanced practice nurse Hx Now Gestational Age (in weeks): EDC: Hx Hx Para Hx Section SAB Hematologic Medial History Hematologic Hx - mental health advanced practice nurse: Hematologic Medical Hx - 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 Specify any problems Hx of Preganancy in last 3 N/A 03/02/24 11:29 Months Nurse Filling Out Transfusion VCHRISTIN 03/02/24 11:29 & Questions: Date: 03/02/24 03/02/24 11:29 Time: 11:30 03/02/24 11:29 Patient unable to answer at this time (ie. confused, unrespo PONV PONV - mental health advanced practice nurse: PONV - mental health advanced practice nurse Female No 03/02/24 11:29 HX of Motion Sickness No 03/02/24 11:29 HX of N/V After Surgery No 03/02/24 11:29 Non-Smoker Yes 03/02/24 11:29 Duration of Surgery greater No 03/02/24 11:29 than 60 minutes Number of Risk Factors 1 03/02/24 11:29 PONV Score Low Risk 03/02/24 11:29 Pertinent Findings EKG Pertinent Findings:: April 03, 2022 normal sinus rhythm Stress Test Pertinent Findings:: April 03, 2022 ejection fraction 60%. No ischemia or infarct ECHO Pertinent Findings:: April 02, 2022 ejection fraction is 60% right ventricular systolic pressure is 31 mmHg Consults Pertinent Findings:: Cardiology consult on May 25, 2023 with Abelardo. Previous stent noted from July 12, 2011. he has had no recent angina and recent stress test showed no evidence of ischemia. Patient is to continue his medications including metoprolol Other Pertinent Findings:: Reflux is controlled Anesthesia focused assessment* Height & Weight: Anesthesia: Height & Weight Height 1.83 m 03/06/24 13:11 Weight: 92 kg 03/06/24 13:11 Body Mass Index (BMI) 27.5 03/06/24 13:11 Temperature: 99.6 F Pulse Rate: 85 Blood Pressure: 140/82 Respiratory Rate: 16 Pulse Ox: 98 Active Medications: Current Medications Generic Name Dose Route Start Last Admin Trade Name Freq PRN Reason Stop Dose Admin Lactated Ringer's 1,000 mls @ 15 mls/hr 03/06/24 13:00 03/06/24 13:13 IV 15 mls/hr .Q48H KIMI Administration Focused labs Anesthesia Preop lab: CBC WBC 7.1 K/mm3 (4.4-11.0) 04/03/22 06:40 RBC 5.38 M/mm3 (4.6-6.2) 04/03/22 06:40 Hgb 17.1 g/dL (13.0-16.5) H 04/03/22 06:40 Hct 50.3 % (40-54) 04/03/22 06:40 Plt Count 138 K/mm3 (150-450) L 04/03/22 06:40 CHEMISTRY Potassium 3.8 mmol/L (3.5-5.1) 04/03/22 06:40 Sodium 140 mmol/L (136-145) 04/03/22 06:40 Magnesium 2.1 mg/dL (1.6-2.6) 04/03/22 06:40 Phosphorus 2.7 mg/dL (2.5-4.9) 04/03/22 06:40 BUN 12 mg/dL (7-18) 04/03/22 06:40 Creatinine 1.07 mg/dL (0.70-1.30) 04/03/22 06:40 Glucose 96 mg/dL (74-106) 04/03/22 06:40 TSH 5.06 uIU/mL (0.358-3.74) H 04/03/22 06:40 COAG PT 16.0 SECONDS (11.7-14.9) H 03/28/17 15:30 Assessment & Plan Anesthesia* Anesthesia Assessment Anesthesia Assessment: Discussed sedation and/or anesthesia options, risks, benefits, and alternatives with patient/parents/legal guardian. Questions invited. The patient/parents/legal guardian/POA seems to understand and agrees to proceed with anesthesia plan. Reviewed the physical assessment, medical history, allergy history and patient home medications list prior to surgery/procedure/anesthetic and documented any changes. Performed airway and anesthesia risk assessments. Procedural Plan (POC = Plan of care) Procedural Plan:: Proceed w/ POC Anesthesia Type Anesthesia Type: MAC Review of Systems (Anesthesia) ROS Narrative System reviewed and no additional complaints, except as documented. Physical Exam Neck full ROM [facility] Medical History (Updated 03/02/24 @ 11:29 by Pauline Rojas) Loss of hearing Wears dentures Wears glasses Bladder disease Prostate disease Non-smoker History of stress test History of echocardiogram Hypertension Cardiology follow-up encounter COVID (03/2022) Thrombocytopenia Anxiety Pulmonary embolism Vitamin B12 deficiency anemia, unspecified Vitamin B12 deficiency Depression Bilateral hearing loss Inguinal hernia Polyp of colon Calculus of gallbladder without cholecystitis without obstruction Other bursitis of knee, right knee Pill rolling tremor Polyuria Memory loss Early satiety Genetic susceptibility to other disease Dizziness PAD (peripheral artery disease) Excessive sweating Fatigue 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 Mass of cardiovascular structure (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 Pulmonary emboli Tinnitus Hiatal hernia Hyperlipidemia GERD (gastroesophageal reflux disease) Home Medications ?Medication ?Instructions ?Recorded ?Last Taken ?Type aspirin 81 mg chewable tablet 81 mg PO DAILY 11/04/16 03/02/24 History omeprazole 40 mg capsule,delayed 40 mg PO DAILY 11/04/16 03/05/24 History release cholecalciferol (vitamin D3) 25 125 mcg PO DAILY 05/27/20 04/02/22 History mcg (1,000 unit) capsule lactobacillus combination no.8 3 3,000 mmu cells PO DAILY 05/27/20 04/02/22 History billion cell capsule (Adult Probiotic) atorvastatin 10 mg tablet 10 mg PO DAILY cholesterol #90 tabs 05/25/23 Unknown Rx cyanocobalamin (vitamin B-12) 1,000 mcg PO DAILY 03/02/24 Unknown History 1,000 mcg tablet (Vitamin B-12) Allergy/AdvReac Type Severity Reaction Status Date / Time No Known Allergies Allergy Verified 03/06/24 13:10 Family History Father Cancer Prostate cancer Surgical History History of transurethral resection of prostate History of repair of rotator cuff H/O hernia repair Hx of cholecystectomy History of partial knee replacement History of coronary artery stent placement (07/12/11) Social History household members: spouse Smoking Status: Never smoker alcohol intake: current alcohol intake frequency: holidays/special occasions only Alcohol type: wine substance use type: does not use caffeine: Yes Type: coffee Number of servings: 2 what type of physical activity do you participate in: none seatbelt use: always do you feel safe at home: Yes
--- NOTE | 2024-03-06 14:00 | EGD_PTH ---
PATIENT: PATIENCE MERCEDES LOC: EN U#:[id number] AGE/SX: 89/M ROOM: RE03/06/[address]: Dr. Daniel Acevedo DO : 1935 BED: DIS: 03/06/2024 SPEC #: [id number] RECD: 03/06/24 18:14 STATUS: KIMMIE CATHI #: [id number] WES: 03/06/24 14:[address]: Daniel Acevedo DEPT: SURGICAL PATHOLOGY RECD BY: Huma Wynne ENTERED: 03/07/24 10:49 SP TYPE: EGD BIOPSY OT DR: Zully Iyer, [employer] Svetlana Iyer Tissues: Esophagus, NOS Procedures: Special Stain Group I Surgery Specimen Level IV Alcian Blue/PAS (control) HEADER OPERATION: EGD, dilation, biopsy PRE-OP DIAGNOSIS: Dysphagia TISSUE SUBMITTED: Distal esophagus MICROSCOPIC DIAGNOSIS Distal esophagus, biopsy: Fragments of gastroesophageal mucosa with chronic inflammation. Intestinal metaplasia (goblet cell metaplasia) not identified. See comment. / 03/08/24 COMMENT Alcian blue/PAS stain with matched control is used in the evaluation of the specimen. MICROSCOPIC DESCRIPTION Slides are reviewed. GROSS DESCRIPTION Received in fixative is one container labeled with the patient's name and designated Distal esophagus. The specimen consists of multiple irregular fragments of light cr soft tissue that in aggregate measure 1.5 x 0.5 x 0.1 cm. The specimen is totally submitted in one cassette. / 03/07/2024 TC:3 CPT:[id number]
--- NOTE | 2024-03-06 16:15 | PCM.POST.ANE ---
Anesthesia: Postop Eval I Current Vital Signs Temperature: 97 F Pulse Rate: 91 Blood Pressure: 117/64 Respiratory Rate: 18 Pulse Ox: 96 Oxygen Delivery Method: Room Air Assessment Airway patent: Yes Spontaneous unlabored respirations: Yes Mental status: Awake and Calm nausea: No Vomiting: No Anesthesia Complication: No Fluid Hydration Crystalloid volume administer (ml): 400 Total IV fluid infused: 400 Progress Note Anesthesia document: Postop Eval 1 completed: Yes
--- NOTE | 2024-03-06 16:17 | HP.PCM_ITS ---
History and Physical Date of Admission: 03/06/24 87 M who presents to the office today for a follow up visit. Pravin established with this clinic on 05.14.22 for a history of dysphagia. Patient has a history of food sticking in esophagus intermittently, usually meat is most problematic. He and his made the appt because they saw the article on Esoguard screening for Muhammad's. They deny that his dysphagia has worsened recently. Used to see Dr Noland at [facility] [place] years ago, hx of esophageal dilation then. On omeprazole 40 mg daily, no heartburn. No ED visits in many yrs for food retention in esophagus. Drinks lots of water with meals. Doesn't use lower dentures when he eats so it can be hard to chew up food. Denies nausea, v omiting, chest pain, abd pain, diarrhea, constipation, melena, hematochezia, weight loss, poor appetite, early satiety. [address] Giraldo--Minimal distal esophagitis, moderate hiatal hernia, mild chronic antral gastritis, and minimal acute duodenitis. Negative for Muhammad's. Plan last visit 05.14.22- EGD to evaluate for esophageal stricture and Muhammad's EGD 07.13.22 showed ?LA Grade A reflux esophagitis. Biopsied. Moderate Schatzki ring. Dilated. Large hiatal hernia. A few gastric polyps. Normal first portion of the duodenum. Pathology showed gastroesophageal junctional mucosa with chronic inflammation, focal changes of reflux, no evidence of goblet cell metaplasia. Patient today reports that he has been doing well since the scope. Denies any episodes of dysphagia or food getting stuck in esophagus. ROS Const Constitutional: Positive for fatigue; No fever(s), frequent falls, headache(s) or weight change ENT ENT: No headache(s) or difficulty swallowing Cardio Cardiology: No leg pain with exertion Gastro GI: Positive for diarrhea; No abdominal pain, bloating, change in bowel habits, constipation, heartburn, difficulty swallowing, Vomiting blood/hematemesis, Blood in stool, nausea/dyspepsia or vomiting Musc Musculoskeletal: No abnormal gait, joint pain, back pain, joint swelling, muscle cramps, muscle weakness, numbness, stiffness, tingling, Arthritis, sciatica, leg pain at night or leg pain with exertion Skin Skin: Positive for dry skin and itchy eyes; No lesions or rash Neuro Neurology: No abnormal gait, dizziness, frequent falls, headache(s), numbness, tingling, tremor(s), Increased tone in limbs, paralysis or seizures Psych Psychiatric: Positive for anxiety, No depression, No paranoia, No Behavioral Problems, No Compulsive Behavior, No hyperactivity, No inattentiveness, No obsessions/compulsions, Positive for Temper Tantrums and No suicidal ideation Endo Endocrine: Positive for fatigue; No weight change Aller/Imm Allergy/Immunologic: Positive for itchy eyes Sarthak/Lymp Hematologic/Lymphatic: No easy bleeding or easy bruising Exam Const General: cooperative and comfortable Nutritional Appearance: overweight Orientation: alert, awake and oriented x3 Quality Reporting Tobacco Screening ([facility] 138) Smoking Status: Never smoker Assessment and Plan Assessment and Plan (1) Dysphagia: Status: Acute Plan: His esophageal dysphagia is a lot better. He is not have any trouble swallowing solids, liquids or pills. He is not having any chest pain or shortness of breath. He was discovered to have a sliding large hiatal hernia. He also had a Schatzki's ring. This was dilated with savory dilator. He has had no problems since the procedure. He is on omeprazole 40 mg a day and is not having any reflux symptoms. Hopefully he will be able to maintain without needing any surgical intervention in the future. I have examined the patient and the H&P has been reviewed. There are no clinical changes since date of exam.
--- NOTE | 2024-03-06 16:46 | OP.EGD_ITS ---
Patient Name: Pravin Holden Procedure Date: 03/06/2024 4:07 PM Date of : 1935 Age: 89 Procedure: Upper GI endoscopy Indications: Dysphagia Providers: Daniel Acevedo DO Referring MD: Daniel Acevedo DO Medicines: Monitored Anesthesia Care Patient Profile: This is an 89 year old male. Refer to note in patient chart for documentation of history and physical. Patient has symptoms of chronic dysphagia. Complications: No immediate complications. Procedure: Pre-Anesthesia Assessment: - Prior to the procedure, a History and Physical was performed, and patient medications and allergies were reviewed. The patient is competent. The risks and benefits of the procedure and the sedation options and risks were discussed with the patient. All questions were answered and informed consent was obtained. Patient identification and proposed procedure were verified by the physician in the pre-procedure area. Mental Status Examination: alert and oriented. Airway Examination: normal oropharyngeal airway and neck mobility. Respiratory Examination: clear to auscultation. CV Examination: normal. Prophylactic Antibiotics: The patient does not require prophylactic antibiotics. Prior Anticoagulants: The patient has taken no anticoagulant or antiplatelet agents. ASA Grade Assessment: III - A patient with severe systemic disease. After reviewing the risks and benefits, the patient was deemed in satisfactory condition to undergo the procedure. The anesthesia plan was to use monitored anesthesia care (MAC). Immediately prior to administration of medications, the patient was re-assessed for adequacy to receive sedatives. The heart rate, respiratory rate, oxygen saturations, blood pressure, adequacy of pulmonary ventilation, and response to care were monitored throughout the procedure. The physical status of the patient was re-assessed after the procedure. After obtaining informed consent, the endoscope was passed under direct vision. Throughout the procedure, the patient's blood pressure, pulse, and oxygen saturations were monitored continuously. The gastroscope was introduced through the mouth, and advanced to the second part of duodenum. The upper GI endoscopy was accomplished without difficulty. The patient tolerated the procedure well. Scope In: 4:21:56 PM Scope Out: 4:28:11 PM Total Procedure Duration Time 0 hours 6 minutes 15 seconds Findings: One benign-appearing, intrinsic moderate stenosis was found 40 to 41 cm from the incisors. This stenosis measured 2 mm (inner diameter) x 3 cm (in length). The stenosis was traversed. A guidewire was placed and the scope was withdrawn. Dilation was performed with a Savary dilator with no resistance at 54 Fr. The dilation site was examined and showed moderate mucosal disruption. Estimated blood loss was minimal. The Z-line was irregular and was found 40 cm from the incisors. Biopsies were taken with a cold forceps for histology. Verification of patient identification for the specimen was done. Estimated blood loss was minimal. A small hiatal hernia was present. The exam of the stomach was otherwise normal. No gross lesions were noted in the duodenal bulb. Impression: - Benign-appearing esophageal stenosis. Dilated. - Z-line irregular, 40 cm from the incisors. Biopsied. - Small hiatal hernia. - No gross lesions in the duodenal bulb. Recommendation: - Discharge patient to home. - Resume previous diet. - Continue present medications. - Await pathology results. Procedure Code(s): --- Professional --- 66184, Esophagogastroduodenoscopy, flexible, transoral; with insertion of guide wire followed by passage of dilator(s) through esophagus over guide wire [id number], 59,51, Esophagogastroduodenoscopy, flexible, transoral; with biopsy, single or multiple CPT copyright 2021 [employer]. All rights reserved. The codes documented in this report are preliminary and upon tack welder review may be revised to meet current compliance requirements. Daniel Acevedo DO 03/06/2024 4:46:29 PM This report has been signed electronically. Number of Addenda: 0 Note Initiated On: 03/06/2024 4:07 PM
--- NOTE | 2024-03-06 16:47 | OP.CCLET_ITS ---
03/06/2024 Justin Zapata Re : Upper GI endoscopy procedure for Pravin Holden Dear Jaylon This procedure was performed on Wednesday, March 06, 2024. My impressions and recommendations are as follows: Impressions : - Benign-appearing esophageal stenosis. Dilated. - Z-line irregular, 40 cm from the incisors. Biopsied. - Small hiatal hernia. - No gross lesions in the duodenal bulb. Recommendations : - Discharge patient to home. - Resume previous diet. - Continue present medications. - Await pathology results. My findings are described in the full procedure note, which is enclosed. If I can be of further assistance, please feel free to contact me at . Sincerely, Daniel Acevedo, 03/06/2024 4:46:29 PM This report has been signed electronically.
--- NOTE | 2024-03-07 13:00 | PCM.POSTANE2 ---
Anesthesia Postop Eval I Sum Postop Eval Completion status Anesthesia document: Postop Eval 1 completed: Yes Anesthesia Postop Eval I Summary Anesthesia Postop Eval I Summary: Anesthesia Postop Eval I: Assessment Summary Airway patent Yes 03/06/24 16:46 [email or web address] Spontaneous unlabored Yes 03/06/24 16:46 [email or web address] respirations Mental status Awake,Calm 03/06/24 16:46 [email or web address] nausea No 03/06/24 16:46 [email or web address] Vomiting No 03/06/24 16:46 [email or web address] Anesthesia Postop Eval I: Fluid Summary Crystalloid volume administer 400 03/06/24 16:46 [email or web address] (ml) Colloids volume administered ( ml) Blood Product volume administered (ml) Total IV fluid infused 400 03/06/24 16:46 [email or web address] Anesthesia Postop Eval I: Summary Notes Anesthesia Complication No 03/06/24 16:46 [email or web address] Anesthesia Complication Comment: Post-operative progress note Anesthesia: Postop Eval II Evaluation Mental status: Awake and Calm Pain Level: 0 nausea: No Vomiting: No Progress Note Post-operative progress note: Assessment complete prior to discharge March 06 at 1710 Complications Anesthesia Complication: No
== END 2024-03-06 17:14 | disposition home or self-care (01) ==
LOC: EN 12:45 → AC 12:48
PROVIDERS: PCP Nurse Practitioner Family; Visit Provider Internal Medicine Gastroenterology
PROC: 0DJ08ZZ Inspection of Upper Intestinal Tract, Via Natural or Artificial Opening Endoscopic (ICD-10-PCS; CPT 43235; principal; 2024-03-06 13:55)
DX: R13.10 Dysphagia, unspecified (principal); K22.2 Esophageal obstruction; K44.9 Diaphragmatic hernia without obstruction or gangrene; K21.9 Gastro-esophageal reflux disease without esophagitis; Z79.899 Other long term (current) drug therapy; K22.89 Other specified disease of esophagus
CPT/HCPCS: 43248; 43239; 88305; 88312; J7120; C1769; J2405

== ENCOUNTER → 2024-05-15 | Outpatient (CLI) | payer MEDICARE, SELFPAY ==
[2024-05-15 12:24] LABS: Absolute Lymphocyte Count 1.84 X10^3/uL (0.83-4.51); Absolute Neutrophil Count 4.9 X10^3/uL (2.0-7.7); Basophil# 0.03 X10^3/uL; Basophil% 0.4 % (0-1); Eosinophil# 0.19 X10^3/uL; Eosinophils% 2.5 % (0-5); Hematocrit 48.8 % (40-54); Hemoglobin 16.2 g/dL (13.0-16.5); Lymphocyte # 1.84 X10^3/ul (0.83-4.51); Lymphocyte % 23.8 % (19-41); Mean Corp Hgb Conc 33.2 g/dL (32-36); Mean Corpuscular Hgb 30.7 pg (27.0-32.0); Mean Corpuscular Volume 92.6 fL (80-94); Mean Platelet Vol. 10.2 fl (6.2-12.0); Monocyte# 0.74 X10^3/uL; Monocyte% 9.6 % (0-10); NRBC Flagged by Analyzer 0 % (0-5); Neutrophil % 63.4 % (47-70); Platelet Count 129 K/mm3 (150-450); RBC Distribution Width CV 12.6 % (11.6-14.6); RBC Distribution Width SD 43.1 fl (35.1-43.9); Red Blood Count 5.27 M/mm3 (4.6-6.2); White Blood Count 7.7 K/mm3 (4.4-11.0)
[2024-05-15 12:25] LABS: Erythrocyte Sedimentation Rate 1 mm/hr (0-20)
[2024-05-15 13:44] LABS: CRP 5.08 mg/L (0.0-3.0)
[2024-05-16 08:52] LABS: ALB/GLOB Ratio 1.1 RATIO (0.9-2.4); AST(SGOT) 27 U/L (15-37); Alanine Aminotransfer ALT/SGPT 20 U/L (16-61); Albumin, Serum 3.4 g/dL (3.2-5.0); Alkaline Phosphatase 73 U/L (45-117); Anion Gap 6 (5-15); BUN 16 mg/dL (7-18); BUN/Creat Ratio 14.3 RATIO (10-20); Chloride 106 mmol/L (98-107); Creatinine, Serum 1.12 mg/dL (0.70-1.30); EST Glomerular Filtration Rate 66 mL/min (>60); Est Glom Filt Rate - Afr Amer 80 mL/min (>60); Glucose 87 mg/dL (74-106); Potassium 4.7 mmol/L (3.5-5.1); Protein, Total 6.4 g/dL (6.4-8.2); Sodium Level 141 mmol/L (136-145)
== END | disposition home or self-care (01) ==
LOC: LABSPEC 12:14
PROVIDERS: PCP Nurse Practitioner Family; Referring Provider Nurse Practitioner Family; Visit Provider Nurse Practitioner Family
DX: L03.115 Cellulitis of right lower limb (principal)
CPT/HCPCS: 80053; 85025; 85652; 86140

== ENCOUNTER 2024-05-21 10:24 | Inpatient (IN) | payer MEDICARE, SELFPAY ==
[2024-05-21] VITALS (11 sets, daily range): BP systolic 123–156; BP diastolic 65–83; PULSE 66–84; RESP 16–18; TEMP 36.6–36.9; O2SAT 95–98; BMI 27.8
--- NOTE | 2024-05-21 10:53 | RAD_ITS ---
STUDY: X-RAY - RIGHT FOOT CLINICAL: Male, 89 years old. Pain. TECHNIQUE: 3 views of the right foot. COMPARISON: Right foot radiographs dated 05/15/2024. FINDINGS: Intact talus, calcaneus, and tarsal bones. There is an unchanged plantar calcaneal spur. Normal visualized subtalar, talonavicular, calcaneocuboid, tarsal and tarsometatarsal articulations. Normal metatarsi. Normal metatarsophalangeal joint of the great toe. Normal tibial and fibular sesamoid bones. Normal interphalangeal joint of the great toe. Normal phalanges of the great toe. Normal second through fifth metatarsophalangeal joints. Normal interphalangeal joints and phalanges of the lesser toes. There is no demonstrated fracture. There is unchanged soft tissue swelling along the dorsum of the foot. RAD/Foot min 3 Views IMPRESSION: Unchanged soft tissue swelling along the dorsum of the foot. No demonstrated fracture. Electronically Signed: Stevenson Galvan MD at 12:09 EDT ,
--- NOTE | 2024-05-21 10:53 | VDLE_ITS ---
Reason For Study: Swelling RLE RIGHT LEFT GSV is normal. CFV is compressible, spontaneous, phasic, CFV is compressible, spontaneous, phasic, competent, and demonstrates normal competent and demonstrates normal augmentation. augmentation. FV is compressible, spontaneous, phasic, competent and demonstrates normal augmentation. POP V is compressible, spontaneous, phasic, competent and demonstrates normal augmentation. T/P Trunk is compressible. PTV is compressible. RT PerV is compressible. Procedure This is a venous duplex using B-mode, color flow and spectral Doppler. Exam performed portable in ED. A preliminary report was called and/or faxed to Dr. Mckeon. VL/Venous Duplex US, Unilateral Interpretation Summary Deep veins of the right lower extremity are patent and compressible segmentally . There is no evidence of right lower extremity deep vein thrombosis. Valvular competence alf ears intact within the proximal deep venous system on the right . The right great saphenous vein a ppears patent and compressible segmentally. The left common femoral vein is patent and compressib le . Ordering Physician: Obdulio Mckeon Referring Physician: Zully Iyer Performed By: Svetlana Murillo, BLANCA, RVT
--- NOTE | 2024-05-21 11:01 | EX.ED.DYSGE1 ---
HPI History of Present Illness Chief Complaint: Cellulitis Informant: patient and spouse/S.O. Narrative Narrative: Sent in from PCP office for evaluation of failing antibiotic therapy for concerning cellulitis right lower extremity. Nondiabetic. 12 days ago redness on the dorsal foot. Followed up 8 days on the office treated for cellulitis with 2 g Rocephin and started on cefdinir. She returned the following day had additional treatment of Rocephin. Continue cefdinir. He had lab work had slightly elevated CRP of 5. White count was normal. He returned today reevaluated and is one of the leg. This been no fevers or chills. Nor swelling. Takes baby aspirin. He had a PE 10 to 12 years ago treated with anticoagulants at that time. No chest pains or shortness of breath. [facility] Medical History Loss of hearing Wears dentures Wears glasses Bladder disease Prostate disease Non-smoker History of stress test History of echocardiogram Hypertension Cardiology follow-up encounter COVID (03/2022) Thrombocytopenia Anxiety Pulmonary embolism Vitamin B12 deficiency anemia, unspecified Vitamin B12 deficiency Depression Bilateral hearing loss Inguinal hernia Polyp of colon Calculus of gallbladder without cholecystitis without obstruction Other bursitis of knee, right knee Pill rolling tremor Polyuria Memory loss Early satiety Genetic susceptibility to other disease Dizziness PAD (peripheral artery disease) Excessive sweating Fatigue 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 Mass of cardiovascular structure (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 Pulmonary emboli Tinnitus Hiatal hernia Hyperlipidemia GERD (gastroesophageal reflux disease) Home Medications ?Medication ?Instructions ?Recorded ?Last Taken ?Type aspirin 81 mg chewable tablet 81 mg PO DAILY 11/04/16 05/20/24 History omeprazole 40 mg capsule,delayed 40 mg PO DAILY 11/04/16 05/20/24 History release cholecalciferol (vitamin D3) 25 125 mcg PO DAILY 05/27/20 05/20/24 History mcg (1,000 unit) capsule lactobacillus combination no.8 3 3,000 mmu cells PO DAILY 05/27/20 05/20/24 History billion cell capsule (Adult Probiotic) atorvastatin 10 mg tablet 10 mg PO DAILY cholesterol #90 tabs 05/25/23 05/20/24 Rx cyanocobalamin (vitamin B-12) 1,000 mcg PO DAILY 03/02/24 05/20/24 History 1,000 mcg tablet (Vitamin B-12) cefdinir 300 mg capsule 300 mg PO BID 05/21/24 05/20/24 History Allergy/AdvReac Type Severity Reaction Status Date / Time No Known Allergies Allergy Verified 05/21/24 10:25 Family History (Updated 05/21/24 @ 12:[address] Haylee Mays MD) Father Cancer Prostate cancer Mother Anxiety and depression Surgical History History of transurethral resection of prostate History of repair of rotator cuff H/O hernia repair Hx of cholecystectomy History of partial knee replacement History of coronary artery stent placement (07/12/11) Social History household members: spouse Smoking Status: Never smoker alcohol intake: current alcohol intake frequency: holidays/special occasions only Alcohol type: wine substance use type: does not use caffeine: Yes Type: coffee Number of servings: 2 what type of physical activity do you participate in: none seatbelt use: always do you feel safe at home: Yes ROS ROS ED Constitutional Constitutional ED: Denies chills, fever(s) or sweats Eyes Eyes: Denies change in vision ENT ENT ED: Denies dysphagia or sore throat Cardiovascular Cardiovascular: Reports leg edema; Denies chest pain, palpitations or racing heartbeat Respiratory/Chest Respiratory/Chest: Denies cough, dyspnea or dyspnea on exertion Gastrointestinal Gastrointestinal: Denies abdominal pain, diarrhea, nausea or vomiting Genitourinary Genitourinary ED: Denies dysuria, hematuria or urinary frequency Musculoskeletal Musculoskeletal: Denies back pain, extremity pain or neck pain Integumentary Reports rash; Denies wounds Neurologic Neurologic: Denies headache(s), paresthesias or weakness EXAM Physical Exam Const Vital Signs: 05/21/24 10:24 05/21/24 10:26 05/21/24 11:26 Temperature 98.3 F 98.3 F 98.3 F Temperature Source Temporal Oral Temporal Pulse Rate 84 77 74 Respiratory Rate 16 16 18 Blood Pressure 156/77 H 130/76 H 124/82 H Blood Pressure Mean 103 94 96 Pulse Ox 98 97 Oxygen Delivery Method Room Air Room Air Room Air 05/21/24 12:00 05/21/24 12:24 Temperature 98.3 F Temperature Source Oral Pulse Rate 74 72 Respiratory Rate 18 18 Blood Pressure 142/71 H 137/65 H Blood Pressure Mean 94 89 Pulse Ox 98 98 Oxygen Delivery Method Room Air Room Air Positive well nourished and well developed General Appearance ED: well developed and NAD HEENT Reports moist mucous membranes normocephalic and atraumatic Eyes EOMs intact bilaterally and conjunctivae normal General Eye ED: Yes normal appearance of both eyes Neck no lymphadenopathy and supple General: Negative for tenderness Chest Wall Chest: Negative for tenderness Resp normal respiratory effort and normal air movement Effort and Inspection: symmetric chest movement; Negative for respiratory distress Cardio regular rate, regular rhythm and no murmurs Peripheral Pulses: pulses 2+ throughout GI normal to inspection, nondistended, normoactive bowel sounds and non-tender Palpation: Negative for guarding or rebound tenderness present Back/Spine no CVA tenderness and no thoracic nor lumbar tenderness Extremity Extremity Narrative: Right lower extremity: Swelling erythema to the foot with tenderness mid foot. Skin was intact. There was redness going up to the mid leg with petechial lesions noted. Erythema would elder on the leg. There is no blanching at the foot. Asymmetric swelling noted. Pulses are intact distally. Left lower extremity: No swelling or erythema noted. General Extremety ED: Yes edema and tenderness General Extremity: edema Neuro oriented x3 and no sensory deficits noted Sensorium / Orientation: awake and alert Skin no rashes or lesions noted and no wounds MDM MDM MDM Narrative Medical decision making narrative: Interventions / MDM: Differential diagnosis: Right lower extremity cellulitis, failed outpatient treatment Diagnosis considered but do not suspect: DVT however ultrasound negative. Fracture however x-ray negative. My EKG interpretation: N/A Imaging independently reviewed and interpreted by myself: Right lower extremity venous Doppler discussion with mail technician negative for DVT. Three-view x-ray right foot: Soft tissue swelling there is no soft tissue gas no fractures. External documents reviewed: Recent lab work. Test considered but not ordered:N/A ED course: Patient progressive erythema from history this erythema is outlined by myself. He had some petechial lesions also noted. He is on aspirin. Lab work from 8 days reviewed normal white count CRP at 5 ESR normal. Lab work returning today normal white count normal CRP. Normal platelets today at 163, platelets 129 8 days ago. Patient sent for ultrasound for leg for unilateral swelling. Right foot x-ray. Will cover with Ancef and vancomycin. 1122: DVT study negative in the right side. 1156: X-ray with soft tissue swelling no soft tissue gas of the foot. Patient failing outpatient antibiotics, will discuss with hospital service for admission. I discussed with Dr. Mays for admission. Re-evaluation: stable Disposition discussed with patient/family/significant other: Patient and significant other Case discussed with consulting clinician: Hospitalist This note was generated with Plexxiation software. It may contain incorrect words, spelling, and punctuation that were not noted in checking the note before signing. Lab Data Attestation: I reviewed the patient's lab results. Radiography Diagnostic Testing: Clinical Impression(s) from Imaging Studies Foot X-Ray 05/21/24 10:53 IMPRESSION: Unchanged soft tissue swelling along the dorsum of the foot. No demonstrated fracture. Electronically Signed: Stevenson Galvan MD at 12:09 EDT , Discharge Plan Dx/Rx/DC Orders Clinical Impression: Cellulitis of right leg, Right leg swelling, Failure of outpatient treatment Disposition Disposition: Acute Care Hospital [facility] Discharge Date/Time: 05/21/24 13:25
[2024-05-21] MEDS: Cefazolin 2 GM in 0.9% Normal Saline (100mL Bag) 100 ML IV (11:39)
[2024-05-21] MEDS: Vancomycin HCl 2,000 MG in 0.9% Normal Saline (500mL Bag) 500 ML 250 MG IV (12:33)
--- NOTE | 2024-05-21 12:36 | PCM.HP.STD ---
HPI - General General Date of Admission: 05/21/24 Date of Service: 05/21/24 Chief Complaint: Worsing RLE redness, edema, pain. HPI Narrative The patient is an 89 y/o M w/ PMHx: HTN, HLD, BPH s/p TURP, Anxiety and Depression, Chronic memory impairment, PAD, CAD s/p PCI, Chronic dysphagia following with Dr. Acevedo, Hx Pulmonary valve mass who presents to the [facility] ED on 05/21/24 with history of right lower extremity cellulitis diagnosis outpatient by his primary care office starting approximately 12 days prior to presentation with in office treatment with IV Rocephin and transition following to oral cefdinir with outpatient CRP 5 with normal WBC at that time with reevaluation on day of presentation with no fevers or chills given concern for lack of improvement prompting eventual ED evaluation. Patient also notes swelling and discomfort especially tenderness in the foot. He notes the discomfort to the right foot is primarily with palpation and ambulation, dull aching, throb, 1-2 out of 10 but he states he is a high pain tolerance. In the ED workup included T98.3, heart rate 84, BP 156/77, respiratory rate 16, 98% room air, right lower extremity venous Doppler obtained negative for DVT, plain film of the right foot with soft tissue swelling with no gas or any fracture, outpatient labs included CBC with WBC 6.3, hemoglobin 16.2, MCV 93.8, platelet 161 without shift, CMP with glucose 110 otherwise unremarkable, CRP less than 2.90. In the ED patient ministered IV vancomycin. [facility] Medical History Loss of hearing Wears dentures Wears glasses Bladder disease Prostate disease Non-smoker History of stress test History of echocardiogram Hypertension Cardiology follow-up encounter COVID (03/2022) Thrombocytopenia Anxiety Pulmonary embolism Vitamin B12 deficiency anemia, unspecified Vitamin B12 deficiency Depression Bilateral hearing loss Inguinal hernia Polyp of colon Calculus of gallbladder without cholecystitis without obstruction Other bursitis of knee, right knee Pill rolling tremor Polyuria Memory loss Early satiety Genetic susceptibility to other disease Dizziness PAD (peripheral artery disease) Excessive sweating Fatigue 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 Mass of cardiovascular structure (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 Pulmonary emboli Tinnitus Hiatal hernia Hyperlipidemia GERD (gastroesophageal reflux disease) Home Medications ?Medication ?Instructions ?Recorded ?Last Taken ?Type aspirin 81 mg chewable tablet 81 mg PO DAILY 11/04/16 05/20/24 History omeprazole 40 mg capsule,delayed 40 mg PO DAILY 11/04/16 05/20/24 History release cholecalciferol (vitamin D3) 25 125 mcg PO DAILY 05/27/20 05/20/24 History mcg (1,000 unit) capsule lactobacillus combination no.8 3 3,000 mmu cells PO DAILY 05/27/20 05/20/24 History billion cell capsule (Adult Probiotic) atorvastatin 10 mg tablet 10 mg PO DAILY cholesterol #90 tabs 05/25/23 05/20/24 Rx cyanocobalamin (vitamin B-12) 1,000 mcg PO DAILY 03/02/24 05/20/24 History 1,000 mcg tablet (Vitamin B-12) cefdinir 300 mg capsule 300 mg PO BID 05/21/24 05/20/24 History Allergy/AdvReac Type Severity Reaction Status Date / Time No Known Allergies Allergy Verified 05/21/24 10:25 Family History (Updated 05/21/24 @ 12:[address] Haylee Mays MD) Father Cancer Prostate cancer Mother Anxiety and depression Surgical History History of transurethral resection of prostate History of repair of rotator cuff H/O hernia repair Hx of cholecystectomy History of partial knee replacement History of coronary artery stent placement (07/12/11) Social History household members: spouse Smoking Status: Never smoker alcohol intake: current alcohol intake frequency: holidays/special occasions only Alcohol type: wine substance use type: does not use caffeine: Yes Type: coffee Number of servings: 2 what type of physical activity do you participate in: none seatbelt use: always do you feel safe at home: Yes ROS ROS Narrative Admission Review of Systems: CONSTITUTIONAL: No weight loss, fever, chills, + weakness or fatigue. HEENT: Eyes: No visual loss, blurred vision, double vision or yellow sclerae. Ears, Nose, Throat: No hearing loss, sneezing, congestion, runny nose or sore throat. SKIN: No rash or itching, lesions, wounds except + right lower extremity with erythema and swelling to the dorsal foot and ankle with erythema now extending up to the mid calf circumferentially. CARDIOVASCULAR: No chest pain, chest pressure or chest discomfort, palpitations, edema, orthopnea, syncopal events. RESPIRATORY: No shortness of breath, cough or sputum, wheezing, hemoptysis. GASTROINTESTINAL: No anorexia, nausea, vomiting or diarrhea, abdominal pain, melena, BRBPR. GENITOURINARY: + Chronic urinary frequency. No dysuria, urgency or retention. NEUROLOGICAL: No headache, dizziness, syncope, paralysis, ataxia, numbness or tingling in the extremities, focal weakness, change in bowel or bladder control, seizure. MUSCULOSKELETAL: + muscle, back pain, joint pain or stiffness. HEMATOLOGIC: No anemia, bleeding or bruising. LYMPHATICS: No enlarged nodes. No history of splenectomy. PSYCHIATRIC: + History of anxiety and depression ENDOCRINOLOGIC: No reports of sweating, cold or heat intolerance. No polyuria or polydipsia. ALLERGIES: No history of asthma, hives, eczema or rhinitis. Vital Signs Vital Signs Vital Signs: 05/21/24 10:24 05/21/24 10:26 05/21/24 11:26 Temperature 98.3 F 98.3 F 98.3 F Temperature Source Temporal Oral Temporal Pulse Rate 84 77 74 Respiratory Rate 16 16 18 Blood Pressure 156/77 H 130/76 H 124/82 H Blood Pressure Mean 103 94 96 Pulse Ox 98 97 Oxygen Delivery Method Room Air Room Air Room Air 05/21/24 12:00 05/21/24 12:24 Temperature 98.3 F Temperature Source Oral Pulse Rate 74 72 Respiratory Rate 18 18 Blood Pressure 142/71 H 137/65 H Blood Pressure Mean 94 89 Pulse Ox 98 98 Oxygen Delivery Method Room Air Room Air Weight Weight: 205 lb 7.533 oz Body Mass Index (BMI) 27.8 Physical Exam Narrative Physical Examination: General: Awake, alert, oriented x 3 and cooperative, seated upright in the ED bed, fatigued, denies any current pain to the foot more so with palpation. Skin: Normal color, normal turgor, no icterus, no cyanosis except right lower extremity with dorsal foot and ankle erythema and swelling as well as erythema extending up to the mid calf region circumferentially, warm to touch. HEENT: AT/NC, EOMI, PERRLA, MMM, no carotid bruits or JVD noted. Lungs: Mildly diminished, greater bases, appropriate effort, no rales, ronchi or wheezing. Heart: Regular rate and rhythm; no gallop, rub audible. Abdomen: Soft, overweight, NTTP, ND, normal BS, no appreciated HSM. Extremities: No cyanosis, no clubbing, see skin, pedal to mid calf 1-2+ pitting edema. Neurological: Patient awake, alert, oriented as noted, cognitive function intact; pupils equally reactive to light and accommodation, cranial nerves grossly normal, moving all 4 extremities, no focal deficits, strength mildly to moderately globally decreased secondary to acute presentation complaints Psychiatric: Affect appears fatigued otherwise normal, no acute evidence of depressive or anxiety feelings but does have underlying history. Results Imaging Radiology Impression Foot X-Ray 05/21/24 10:53 IMPRESSION: Unchanged soft tissue swelling along the dorsum of the foot. No demonstrated fracture. Electronically Signed: Stevenson Galvan MD at 12:09 EDT , Assessment & Plan Assessment/Plan (1) Cellulitis of right leg: (2) Failure of outpatient treatment: PLAN: Plan The patient is an 89 y/o M w/ PMHx: HTN, HLD, BPH s/p TURP, Anxiety and Depression, Chronic memory impairment, PAD, CAD s/p PCI, Chronic dysphagia following with Dr. Acevedo, Hx Pulmonary valve mass who presents to the [facility] ED on 05/21/24 with history of right lower extremity cellulitis diagnosis outpatient by his primary care office starting approximately 12 days prior to presentation with in office treatment with IV Rocephin and transition following to oral cefdinir with outpatient CRP 5 with normal WBC at that time with reevaluation on day of presentation with no fevers or chills given concern for lack of improvement prompting eventual ED evaluation. Patient also notes swelling and discomfort especially tenderness in the foot. #1. RL Extremity Cellulitis, worsening, failed outpatient abx therapy: Will admit to [facility], maintain on IV vancomcyin given on improvement with IV Rocephin outpatient coupled with cefdinir oral regimen, plan repeat CBC in AM, continue affected extremity elevation above heart when seated and in bed, monitor erythema outline with VS checks, as noted in the ED DVT ultrasound negative, PT/OT/case management consulted for discharge planning, recent outpatient CRP not markedly elevated and ESR was not either, will obtain procalcitonin, place snug sandip wrap, will repeat CRP/ESR. #2. Chronic dysphagia: Following with Dr. 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 #3. CAD, PAD: Status post PCI and angioplasty left anterior descending 2010, continue aspirin, statin, per current list does not appear to be on any beta-raffy or SANDIP inhibitor/ARB, clarifying. #4. 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 #5. Hypertension: Noted history but per current list does not appear to be on any hypertensive regimen, BP above control, clarifying, as needed IV hydralazine in the interim. #6. Hyperlipidemia: We will continue patient on statin therapy. #7. Anxiety and depression: Noted in chart history, per current list does not appear to be on regimen, clarifying, encourage continued outpatient follow-up with PCP as previously arranged. #8. Chronic memory impairment: Noted in chart history, no formal dementia diagnosis noted on chart, complicates presentation, PT/OT/case management consulted for discharge planning. #9. BPH: Status post previous TURP, per current list does not appear to be on a regimen, clarified to be cautious #10. GERD: Will continue patient on PPI. #11. DVT prophylaxis: Lovenox. #12. CODE status: Patient DEVON is his who is present and living will is currently in place. Discussed CODE status at length including difference between FULL code, DNR-CCA and DNR-CC status. Following discussions about the differences in these status, requested DNR-CCA, no intubation status. Advanced Care Planning Face to Face Time: 16 minutes. Charges/Coding Visit Charges Inpatient E&M: 60007 Init Hosp L3 Procedures Hospitalists Procedures: 90861 Advncd Care Plan 30 Min
[2024-05-21 13:31] LABS: Erythrocyte Sedimentation Rate 8 mm/hr (0-20)
[2024-05-21 13:50] LABS: CRP < 2.90 mg/L (0.0-3.0)
[2024-05-21 13:59] LABS: Procalcitonin < 0.04 ng/mL (0.00-0.09)
--- NOTE | 2024-05-21 13:59 | PCM.RX.CS ---
Consult Antibiotic Management Pharmacy has been consulted to manage selected antibiotic: Vancomycin Type of Intervention Type of Consult: New start Suspected Infection Suspected Infection: Skin/Soft tissue Dosing Weight Weight used for dosin.8 kg Estimated Creatinine Clearance Estimated Creatinine Clearance: 55.5 Goal Trough Goal Trough: 15-20 mcg/mL Pharmacy Plan for Drug Dosing Pharmacy Plan for Drug Dosing: NEW START IV VANCOMYCIN Consulting Physician: Dr. Mays Indication: Cellulitis, failed outpt tx Goal Trough: 15-20 SrCr: 1.09 (05/21/24) CrCl: 55.5 Comments: Received Vancomycin 2000mg x1 dose in ED @ 12:33 05/21/24 Vancomycin Dose: Vancomycin 750mg Q12H to start @ 01:00 05/22/24 Pending Level: Vancomycin trough @ 00:30 05/23/24 Pharmacy Service will continue to monitor and adjust dosing as required. Follow-Up Labs Follow-Up Labs: Trough: Vancomycin (00:30 05/23/24)
[2024-05-21] MEDS: Acetaminophen 325 MG Tablet 650 MG PO (22:53)
[2024-05-21] MEDS: 0.9% Saline Lock 10 ML Syringe IV (22:56)
[2024-05-22 00:27] VITALS: BP 101/69; PULSE 73; RESP 18; TEMP 36.6; O2SAT 95
[2024-05-22] MEDS: Vancomycin HCl 750 MG in 0.9% Normal Saline (250mL Bag) 250 ML 250 MG IV ×2 (00:31→13:00)
[2024-05-22] MEDS: MELATONIN 3 MG TABLET PO (00:36)
[2024-05-22] MEDS: 0.9% Saline Lock 10 ML Syringe IV ×2 (02:16→13:00)
[2024-05-22 04:35] VITALS: BMI 27.6
[2024-05-22 05:54] VITALS: BP 111/52; PULSE 74; RESP 18; TEMP 36.5; O2SAT 94
--- NOTE | 2024-05-22 07:19 | PCM.PN.HOSP ---
Reason for Visit Reason for Visit: Diagnoses Cellulitis of right lower limb (05/21/24) Other specified health status (05/21/24) Subjective Subjective Patient with no acute events overnight per self and per nursing report. Patient with significant unexpected complete resolution of cellulitis on new antibiotic regimen with no further erythema, improvement in the edema and lessen discomfort although still some mild with palpation but walking with greater ease. Patient requesting discharge to home given complete resolution and lengthy discussion with plan to utilize alternate antibiotic therapy but necessity to continue to closely monitor in case of recurrence. Patient denies fevers, chills, nausea, emesis, abdominal pain, chest pain or dyspnea. Objective Data Objective Data Vital Signs: Vital Signs Temp Pulse Resp BP Pulse Ox O2 Del Method 97.7 F L 74 18 111/52 L 94 Room Air 05/22/24 05:54 05/22/24 05:54 05/22/24 05:54 05/22/24 05:54 05/22/24 05:54 05/22/24 05:54 Oxygen Delivery Method Room Air Weight: 203 lb 4.259 oz Body Mass Index (BMI) 27.6 Intake & Output: Intake and Output for Last 24 Hours 05/20/24 05/21/24 05/22/24 23:59 23:59 23:59 Intake Total 2200 / 2200 265 / 265 Output Total 325 / 325 650 / 650 Balance 1875 / 1875 -385 / -385 Lab / Micro Data 05/22/24 06:44 05/22/24 06:44 Labs: Laboratory Results - last 24 hr 05/21/24 13:15: ESR 8, C-React Prot Ext Range < 2.90, Procalcitonin < 0.04 Radiography Diagnostic Testing: Radiology Impression Foot X-Ray 05/21/24 10:53 IMPRESSION: Unchanged soft tissue swelling along the dorsum of the foot. No demonstrated fracture. Electronically Signed: Stevenson Galvan MD at 12:09 EDT , Physical Exam Narrative Physical Examination: General: Awake, alert, oriented x 3 and cooperative, seated upright in the MS bed, no acute distress, tearful, notes complete resolution of cellulitis. Skin: Normal color, normal turgor, no icterus, no cyanosis, complete resolution of right lower extremity dorsal foot and ankle erythema, significantly reduced swelling near prior baseline, minimal discomfort to touch, no longer warm to touch. HEENT: AT/NC, EOMI, PERRLA, MMM. Lungs: Mildly diminished, greater bases, appropriate effort, no rales, ronchi or wheezing. Heart: Regular rate and rhythm; no gallop, rub audible. Abdomen: Soft, overweight, NTTP, ND, normal BS. Extremities: No cyanosis, no clubbing, see skin, pedal to mid calf significantly improved near resolved edema with only very mild pitting edema at the ankle but nearly resolved. Neurological: Patient awake, alert, oriented as noted, cognitive function intact; pupils equally reactive to light and accommodation, cranial nerves grossly normal, moving all 4 extremities, no focal deficits, strength improved, patient reports being back to his baseline able to walk with ease. Psychiatric: Affect appears interactive, notes feeling significantly improved, no acute evidence of depressive or anxiety feelings but does have underlying history. Assessment & Plan Assessment/Plan (1) Cellulitis of right leg: (2) Failure of outpatient treatment: PLAN: Plan The patient is an 89 y/o M w/ PMHx: HTN, HLD, BPH s/p TURP, Anxiety and Depression, Chronic memory impairment, PAD, CAD s/p PCI, Chronic dysphagia following with Dr. Acevedo, Hx Pulmonary valve mass who presents to the [facility] ED on 05/21/24 with history of right lower extremity cellulitis diagnosis outpatient by his primary care office starting approximately 12 days prior to presentation with in office treatment with IV Rocephin and transition following to oral cefdinir with outpatient CRP 5 with normal WBC at that time with reevaluation on day of presentation with no fevers or chills given concern for lack of improvement prompting eventual ED evaluation. Patient also notes swelling and discomfort especially tenderness in the foot. #1. RL Extremity Cellulitis, worsening, failed outpatient abx therapy: Admitted to [place], initiated and maintained on IV vancomcyin given on improvement with IV Rocephin outpatient coupled with cefdinir oral regimen, repeat CBC as well as inflammatory markers and procalcitonin negative, DVT ultrasound negative. Overnight and reevaluation 05/22/2024 Patient with complete resolution of cellulitis with extremity erythema resolved, edema nearly resolved, pain resolved with patient significant improvement clinically quicker than expected with patient requesting discharge to home understanding that alternate oral antibiotic therapy will be initiated and needed to closely monitor and return or discuss with PCP for recurrent infection to which she is amenable. #2. Chronic dysphagia: Following with Dr. 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 #3. CAD, PAD: Status post PCI and angioplasty left anterior descending 2010, maintained on aspirin, statin, per current list does not appear to be on any beta-raffy or SANDIP inhibitor/ARB, clarifying. #4. 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 #5. Hypertension: Noted history but upon presentation on a regimen, BP mildly above goal and discussed with patient with preference to continue to monitor given recent infection with close follow-up with PCP to ascertain if regimen initiation is necessary. PRN IV hydralazine in the interim. #6. Hyperlipidemia: We will continue patient on statin therapy. #7. Anxiety and depression: Noted in chart history, not on regimen, encouraged continued outpatient follow-up with PCP as previously arranged. #8. Chronic memory impairment: Noted in chart history, no formal dementia diagnosis noted on chart, complicates presentation, PT/OT/case management consulted for discharge planning. #9. BPH: Status post previous TURP, per current list does not appear to be on a regimen. #10. GERD: Will continue patient on PPI. #11. DVT prophylaxis: Lovenox. #12. CODE status: Patient HCPOA is his who is present and living will is currently in place. DNR-CCA, no intubation status. Charges/Coding Visit Charges Inpatient E&M: 97309 Subs Hosp L2
[2024-05-22 07:56] LABS: Absolute Lymphocyte Count 1.74 X10^3/uL (0.83-4.51); Absolute Neutrophil Count 3.5 X10^3/uL (2.0-7.7); Basophil# 0.02 X10^3/uL; Basophil% 0.3 % (0-1); Eosinophil# 0.27 X10^3/uL; Eosinophils% 4.4 % (0-5); Hematocrit 47.9 % (40-54); Lymphocyte # 1.74 X10^3/ul (0.83-4.51); Lymphocyte % 28.2 % (19-41); Mean Corp Hgb Conc 33.4 g/dL (32-36); Mean Corpuscular Hgb 30.8 pg (27.0-32.0); Mean Corpuscular Volume 92.3 fL (80-94); Mean Platelet Vol. 10.4 fl (6.2-12.0); Monocyte# 0.65 X10^3/uL; Monocyte% 10.5 % (0-10); NRBC Flagged by Analyzer 0 % (0-5); Neutrophil # 3.48 X10^3/uL (2.7-7.7); Neutrophil % 56.4 % (47-70); Platelet Count 133 K/mm3 (150-450); RBC Distribution Width CV 12.4 % (11.6-14.6); RBC Distribution Width SD 42.5 fl (35.1-43.9); Red Blood Count 5.19 M/mm3 (4.6-6.2); White Blood Count 6.2 K/mm3 (4.4-11.0)
[2024-05-22 08:12] LABS: AST(SGOT) 27 U/L (15-37); Alanine Aminotransfer ALT/SGPT 22 U/L (16-61); Albumin, Serum 3.2 g/dL (3.2-5.0); Alkaline Phosphatase 67 U/L (45-117); Anion Gap 5 (5-15); BUN 14 mg/dL (7-18); BUN/Creat Ratio 14.2 RATIO (10-20); Calcium,Total 8.9 mg/dL (8.5-10.1); Chloride 110 mmol/L (98-107); Creatinine, Serum 0.99 mg/dL (0.70-1.30); EST Glomerular Filtration Rate 76 mL/min (>60); Est Glom Filt Rate - Afr Amer 92 mL/min (>60); Estimated Creatinine Clearance 56.61 ml/min; Globulin 3.2 g/dL (2.2-4.2); Glucose 94 mg/dL (74-106); Potassium 3.9 mmol/L (3.5-5.1); Protein, Total 6.4 g/dL (6.4-8.2); Sodium Level 140 mmol/L (136-145)
[2024-05-22 09:00] VITALS: BP 119/69; PULSE 78; RESP 18; TEMP 36.3; O2SAT 98
[2024-05-22] MEDS: Aspirin 81 MG TAB.CHEW PO (09:06)
[2024-05-22] MEDS: Enoxaparin 40 MG/0.4 ML Syringe SC (09:06)
[2024-05-22] MEDS: Atorvastatin Calcium 10 MG Tablet PO (09:06)
[2024-05-22] MEDS: Pantoprazole Sodium 40 MG Tablet PO (09:06)
[2024-05-22] MEDS: Lactobacillis Acidophilus 1 CAP PO (09:06)
--- NOTE | 2024-05-22 09:08 | CASEMGMT ---
BIMAL HARTMAN Assessment: Face to Face with pt for initial transition planning/care coordination assessment. BIMAL HARTMAN introduced self and role at [facility], pt voices understanding and consents to assessment. Pt is A&O x4 and answers all questions appropriately at this time. Pt lying in bed with at bedside as well as nurse. Pt agreeable to assessment with present. Care providers, pharmacy, and demographics verified/updated. Admitting Dx: cellulitis, failed outpt antibiotics Strata Score: 2 PCP:Zully Iyer Specialists:Friend, GI; Nory, pod; Natasha, cardio Preferred [facility]acy: [facility] Insurance: [employer] Prescription Benefit: yes LNOK: Dottie Bermudez, ; Laya Moser, dtr Living Arrangements: Pt lives with in a single story home with 2 steps to enter with a rail. Pt reports he is I in ADLs. Pt denies concerns at home. Transportation: Pt provides transportation. DME:crutches, cane and walker- doesn't use but is available HHC/SNF: Denies hx of Pt states no concerns with going home at time of dc. 6 clicks= 24. Pt states no further concerns/needs. CM to follow. Advised pt to ask CM if any further question/concerns/needs arise, voices understanding. Pt Goal: Home Plan: Home Babatunde WALLIS CM
--- NOTE | 2024-05-22 12:29 | PCM.DC.SUM ---
Providers Date of Admission: 05/21/24 Date of Discharge: 05/22/24 Primary Care Physician: Zully Iyer, MANAS-C Reason For Visit: CELLULITIS, FAILED OUTPATIENT ABX Diagnosis Discharge Diagnosis (1) Cellulitis of right leg: Status: Acute Code(s): L03.115 - Cellulitis of right lower limb (2) Failure of outpatient treatment: Status: Acute Code(s): Z78.9 - Other specified health status Plan: DISCHARGE DIAGNOSES: #1. RL Extremity Cellulitis, worsening, failed outpatient abx therapy #2. Chronic dysphagia #3. CAD, PAD Status post PCI and angioplasty left anterior descending 2010 #4. 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 Hypertension not on regimen with BP above goal (patient preference for PCP re-evaluation given infectious presentation to ascertain need for regimen) #6. Hyperlipidemia #7. Anxiety and depression #8. Chronic memory impairment #9. BPH Status post previous TURP #10. GERD #11. CODE status: Patient DEVON is his who is present and living will is currently in place. DNR-CCA, no intubation status. Medications at Discharge Home Medications aspirin 81 mg chewable tablet 81 mg PO DAILY 11/04/16 omeprazole 40 mg capsule,delayed release 40 mg PO DAILY 11/04/16 cholecalciferol (vitamin D3) 25 mcg (1,000 unit) capsule 125 mcg PO DAILY 05/27/20 lactobacillus combination no.8 3 billion cell capsule (Adult Probiotic) 3,000 mmu cells PO DAILY 05/27/20 atorvastatin 10 mg tablet 10 mg PO DAILY cholesterol #90 tabs 05/25/23 cyanocobalamin (vitamin B-12) 1,000 mcg tablet (Vitamin B-12) 1,000 mcg PO DAILY 03/02/24 doxycycline hyclate 100 mg capsule 100 mg PO BID Cellulitis #20 caps 05/22/24 Hospital Course Operations None Procedures None Summary of Care Provided Minutes Spent on Discharge: 35 Hospital Course: The patient is an 89 y/o M w/ PMHx: HTN, HLD, BPH s/p TURP, Anxiety and Depression, Chronic memory impairment, PAD, CAD s/p PCI, Chronic dysphagia following with Dr. Acevedo, Hx Pulmonary valve mass who presented to the [facility] ED on 05/21/24 with history of right lower extremity cellulitis diagnosis outpatient by his primary care office starting approximately 12 days prior to presentation with in office treatment with IV Rocephin and transition following to oral cefdinir with outpatient CRP 5 with normal WBC at that time with reevaluation on day of presentation with no fevers or chills given concern for lack of improvement prompting eventual ED evaluation. Admitted to [place], initiated and maintained on IV vancomcyin given on improvement with IV Rocephin outpatient coupled with cefdinir oral regimen, repeat CBC as well as inflammatory markers and procalcitonin negative, DVT ultrasound negative. Noted HTN diagnosis but upon presentation not on a regimen, BP mildly above goal and discussed with patient with preference to continue to monitor given recent infection with close follow-up with PCP to ascertain if regimen initiation is necessary. Overnight and reevaluation 05/22/2024 Patient with complete resolution of cellulitis with extremity erythema resolved, edema nearly resolved, pain resolved with patient significant improvement clinically quicker than expected with patient requesting discharge to home understanding that alternate oral antibiotic therapy will be initiated and needed to closely monitor and return or discuss with PCP for recurrent infection to which she is amenable. Encouraged early PCP follow-up with discharge on oral doxycycline given concern for possible MRSA with close continued monitoring in case of recurrence. Weight / BMI Weight Weight: 203 lb 4.259 oz Body Mass Index (BMI) 27.6 ABG / Lab / Microbiology Data 05/22/24 06:44 05/22/24 06:44 Laboratory: Laboratory Results - last 24 hr 05/21/24 13:15: ESR 8, C-React Prot Ext Range < 2.90, Procalcitonin < 0.04 05/22/24 06:44: WBC 6.2, RBC 5.19, Hgb 16.0, Hct 47.9, MCV 92.3, MCH 30.8, MCHC 33.4, RDW Std Deviation 42.5, RDW Coeff of Juanita 12.4, Plt Count 133 L, MPV 10.4, Immature Gran % (Auto) 0.200, Neut % (Auto) 56.4, Lymph % (Auto) 28.2, [place] % (Auto) 10.5 H, Eos % (Auto) 4.4, Baso % (Auto) 0.3, Absolute Neuts (auto) 3.5, Absolute Lymphs (auto) 1.74, Nucleated RBC % 0, Sodium 140, Potassium 3.9, Chloride 110 H, Carbon Dioxide 25.0, Anion Gap 5, BUN 14, Creatinine 0.99, Estim Creat Clear Calc 56.61, Est GFR (MDRD) Af Amer 92, Est GFR (MDRD) Non-Af 76, BUN/Creatinine Ratio 14.2, Glucose 94, Calcium 8.9, Total Bilirubin 0.50, AST 27, ALT 22, Alkaline Phosphatase 67, Total Protein 6.4, Albumin 3.2, Globulin 3.2, Albumin/Globulin Ratio 1.0 D/C Instructions Discharge Diet: Low fat / Low cholesterol Weight Bearing Status: Weight bearing as tolerated Keep extremity elevated above heart level: Right Leg Call your doctor if you observe: Fever of 101 or Higher, Shortness of breath, Swelling in the ankles, Chest pain, Increased palpitations (irregular heartbeat), Calf discomfort, Uncontrolled pain and - (Recurrent skin redness, warmth, pain, swelling.) Meaningful Use Info Meaningful Use Meaningful Use Diagnoses (Choose all that apply): None applicable Ischemic Stroke Statin Dosing Therapy Reference: STATIN DOSE THERAPY REFERENCE: * Patients > 75 years receive moderate or high dose statin therapy. * Patients 75 years or YOUNGER should receive HIGH intensity statin dose unless contraindicated. You will be required to document reason for non-treatment if statin daily dose does not meet guidelines. HIGH DOSE STATIN THERAPY DAILY Atorvastatin > than or = to 40 mg Rosuvastatin > than or = to 20 mg Amlodipine + Atorvastatin > than or = to 2.5/40 mg Ezetimibe + Simvastatin 10/80 mg Simvastatin 80mg Discharge Plan Admission Admit Date/Time: 05/21/24 12:38 Primary Reason for Your Visit: Acute cellulitis, failed outpatient abx therapy Attending Provider: Haylee Mays Primary Care Provider: Zully Iyer Instructions Patient Instructions: Cellulitis Additional Instructions / Restrictions: ADDITIONAL DISCHARGE INFORMATION/CARE PLAN: Right Lower Extremity Cellulitis, worsening, failed outpatient abx therapy: Evaluation inpatient included negative duplex ultrasound, unremarkable repeat CBC as well as inflammatory markers. Given concern for failure of antibiotic therapy outpatient you were initiated on IV vancomycin with complete near resolution of cellulitis and swelling fortunately. As discussed he will be started on a new antibiotic therapy to cover potentially MRSA skin infection. You have been sent a prescription for doxycycline and should continue this to completion. If your skin becomes red again or inflamed immediately notify your primary care physician as unfortunately you could potentially be resistant to this agents and may need an alternate therapy. Please continue your home lactobacillus agent and you may eat increased yogurt amount at this time to improve gut ceslo/health. Also, we recommend you continue to elevate the right lower extremity and you may continue to snugly Jay wrap from the toes to the knee to assist with any swelling. Discharge Orders/Prescriptions Prescriptions: New doxycycline hyclate 100 mg capsule 100 mg PO BID Qty: 20 0RF Continued cholecalciferol (vitamin D3) 25 mcg (1,000 unit) capsule 125 mcg PO DAILY Adult Probiotic 3 billion cell capsule 3,000 mmu cells PO DAILY Rx Instructions: administer with a meal atorvastatin 10 mg tablet 10 mg PO DAILY Qty: 90 3RF omeprazole 40 MG capsule 40 mg PO DAILY Patient Comments: ACID REFLUX MED aspirin 81 MG tablet,chewable 81 mg PO DAILY Patient Comments: BLOOD THINNER Rx Instructions: WILL STOP TAKING DAY PRIOR cyanocobalamin (vitamin B-12) [Vitamin B-12] 1,000 mcg tablet 1,000 mcg PO DAILY Discontinued cefdinir 300 mg capsule 300 mg PO BID Referrals / Follow Up: Zully Iyer, MANAS-C [Primary Care Provider] - (Follow-up in 3-5 days to review admission, assure continued improvement.) Disposition Disposition (needs filled in before D/C Order can be placed): Home, Self Care Charges/Coding Visit Charges Inpatient E&M: 94557 Disch Hosp >30min
[2024-05-22 14:25] VITALS: BP 147/77; PULSE 78; RESP 18; TEMP 36.8; O2SAT 98
== END 2024-05-22 14:28 | disposition home or self-care (01) | DRG 603 ==
LOC: ED 12:07 → MS3 12:48
PROVIDERS: Admitting Provider Family Medicine; Emergency Provider Emergency Medicine; PCP Nurse Practitioner Family; Visit Provider Family Medicine
DX: L03.115 Cellulitis of right lower limb (principal); I73.9 Peripheral vascular disease, unspecified; E78.5 Hyperlipidemia, unspecified; I10 Essential (primary) hypertension; I25.10 Atherosclerotic heart disease of native coronary artery without angina pectoris; K21.9 Gastro-esophageal reflux disease without esophagitis; R13.10 Dysphagia, unspecified; Z66 Do not resuscitate; Z86.16 Personal history of COVID-19; Z95.5 Presence of coronary angioplasty implant and graft; Z79.82 Long term (current) use of aspirin; Z79.899 Other long term (current) drug therapy; Z86.711 Personal history of pulmonary embolism
CPT/HCPCS: 36415; 73630; 80053; 84145; 85025; 85652; 86140; 93971; 94668; 99252; 99284; J7040; J7050; A4216; G0463

== ENCOUNTER → 2024-05-21 | Outpatient (CLI) | payer MEDICARE, SELFPAY ==
[2024-05-21 10:32] LABS: Absolute Neutrophil Count 3.9 X10^3/uL (2.0-7.7); Basophil# 0.02 X10^3/uL; Basophil% 0.3 % (0-1); Eosinophil# 0.25 X10^3/uL; Hematocrit 48.7 % (40-54); Hemoglobin 16.2 g/dL (13.0-16.5); Lymphocyte % 25.4 % (19-41); Mean Corp Hgb Conc 33.3 g/dL (32-36); Mean Corpuscular Hgb 31.2 pg (27.0-32.0); Mean Corpuscular Volume 93.8 fL (80-94); Mean Platelet Vol. 9.9 fl (6.2-12.0); Monocyte# 0.55 X10^3/uL; Monocyte% 8.7 % (0-10); NRBC Flagged by Analyzer 0 % (0-5); Neutrophil # 3.87 X10^3/uL (2.7-7.7); Neutrophil % 61.4 % (47-70); Platelet Count 161 K/mm3 (150-450); RBC Distribution Width CV 12.4 % (11.6-14.6); RBC Distribution Width SD 42.7 fl (35.1-43.9); Red Blood Count 5.19 M/mm3 (4.6-6.2); White Blood Count 6.3 K/mm3 (4.4-11.0)
[2024-05-21 10:48] LABS: AST(SGOT) 22 U/L (15-37); Alanine Aminotransfer ALT/SGPT 26 U/L (16-61); Albumin, Serum 3.3 g/dL (3.2-5.0); Alkaline Phosphatase 69 U/L (45-117); Anion Gap 2 (5-15); BUN 17 mg/dL (7-18); BUN/Creat Ratio 15.6 RATIO (10-20); CRP < 2.90 mg/L (0.0-3.0); Calcium,Total 8.8 mg/dL (8.5-10.1); Chloride 107 mmol/L (98-107); Creatinine, Serum 1.09 mg/dL (0.70-1.30); EST Glomerular Filtration Rate 68 mL/min (>60); Est Glom Filt Rate - Afr Amer 82 mL/min (>60); Globulin 3.4 g/dL (2.2-4.2); Glucose 110 mg/dL (74-106); Potassium 3.9 mmol/L (3.5-5.1); Protein, Total 6.7 g/dL (6.4-8.2); Sodium Level 139 mmol/L (136-145)
== END | disposition home or self-care (01) ==
LOC: LABSPEC 10:15
PROVIDERS: PCP Nurse Practitioner Family; Referring Provider Nurse Practitioner Family; Visit Provider Nurse Practitioner Family
DX: L03.115 Cellulitis of right lower limb (principal)
CPT/HCPCS: 80053; 85025; 86140

== ENCOUNTER 2024-08-04 16:03 | Emergency (ER) | payer MEDICARE, SELFPAY ==
[2024-08-04 16:04] VITALS: BP 142/82; PULSE 96; RESP 16; TEMP 37.1; O2SAT 97; BMI 27.6
--- NOTE | 2024-08-04 17:27 | RAD_ITS ---
EXAM: XR RIGHT WRIST COMPLETE, 3 OR MORE VIEWS CLINICAL INDICATION: Injury/Pain TECHNIQUE: Frontal, lateral and oblique views of the right wrist. COMPARISON: Hand on the same date. FINDINGS: BONES/JOINTS: Mild diffuse intercarpal joint arthrosis and degenerative changes at the visualized metacarpophalangeal and first carpometacarpal joints. No sclerotic or destructive changes observed. No evidence of an acute fracture or dislocation. SOFT TISSUES: Mild soft tissue swelling. No radiopaque foreign body. RAD/Wrist min 3 Views IMPRESSION: No evidence of an acute fracture or dislocation. Degenerative changes and soft tissue swelling. Electronically Signed: Charly Estrada DO at 18:23 EDT ,
--- NOTE | 2024-08-04 17:27 | CT_ITS ---
EXAM: CT HEAD WITHOUT INTRAVENOUS CONTRAST CLINICAL INDICATION: Injury/Pain TECHNIQUE: Multiple axial images were obtained of the head without intravenous contrast. This CT exam was performed using one or more of the following dose reduction techniques: automated exposure control, adjustment of the mA and/or kV according to patient size, and/or use of iterative reconstruction technique. COMPARISON: CT cervical spine on the same date. FINDINGS: BRAIN AND EXTRA-AXIAL SPACES: There is non-specific periventricular hypoattenuation which is most commonly related to chronic microvascular ischemic disease in a patient of this age. There is no mass, mass-effect, or shift of the midline structures. No evidence of acute infarct or acute intracranial hemorrhage. There is no evidence of pathologic extra-axial fluid. There is no hydrocephalus. Patent basal cisterns. Global parenchymal volume loss with commensurate enlargement of the ventricles and the sulcal spaces. BONES/JOINTS: Mild bilateral TMJ arthrosis. No discrete lytic or blastic abnormalities. SOFT TISSUES: Right frontal scalp hematoma. VASCULATURE: Arteriosclerosis. SINUSES: No significant findings. MASTOID AIR CELLS: No significant effusion. ORBITS: Bilateral ocular lens extraction presumptively for the treatment of cataracts. Otherwise, no acute orbital pathology. CT/Brain/Head without Contrast IMPRESSION: 1. Right frontal scalp hematoma. 2. Chronic microvascular ischemic changes. No acute intracranial pathology or calvarial injury. Electronically Signed: Charly Estrada DO at 18:22 EDT ,
--- NOTE | 2024-08-04 17:27 | CT_ITS ---
EXAM: CT CERVICAL SPINE WITHOUT INTRAVENOUS CONTRAST CLINICAL INDICATION: Injury/Pain TECHNIQUE: Helically acquired images were obtained of the cervical spine without intravenous contrast. 2D reformatted images were reviewed. This CT exam was performed using one or more of the following dose reduction techniques: automated exposure control, adjustment of the mA and/or kV according to patient size, and/or use of iterative reconstruction technique. COMPARISON: No relevant prior studies available. FINDINGS: VERTEBRAE: Multilevel facet, uncovertebral joint, and endplate osteophytosis. Trace degenerative anterolisthesis of C4 on C5 secondary to facet arthrosis. Straightening of the expected cervical lordosis. Mild pannus surrounding the odontoid with degenerative changes at the C1-C2 articulations. Mild degenerative change at the craniocervical junction. No fracture. No discrete lytic or blastic abnormality. DISCS/SPINAL CANAL/NEURAL FORAMINA: Mild to moderate multilevel spinal canal stenosis. Multilevel intervertebral disc height loss. Mild to moderate multilevel neural foraminal narrowing. SOFT TISSUES: No significant abnormality. No prevertebral soft tissue swelling. VASCULATURE: Vascular calcifications. LYMPH NODES: No significant abnormality. No cervical adenopathy. LUNG APICES: Normal as visualized. Clear. OTHER FINDINGS: Bilateral TMJ arthrosis. CT/Spine Cervical without Contras IMPRESSION: Degenerative changes in the cervical spine. No evidence of acute posttraumatic change. Electronically Signed: Charly Estrada DO at 18:12 EDT ,
--- NOTE | 2024-08-04 17:30 | EX.ED.GENINJ ---
HPI History of Present Illness Chief Complaint: Head Injury Narrative Narrative: Patient is an 89-year-old male with history of coronary disease with stents placed in 2010 as well as hyperlipidemia presenting after mechanical fall. Patient states he was walking the yard when he stumbled over a concrete flower bed. He lost his balance and fell to the right side. He did hit the right side of his head. He also landed on his right hand as well as his right knee. He is complaining of pain to the right judaism, right base of the thumb and has abrasions to the right knee and right shoulder. He does take an 81 mg aspirin is not on any blood thinners. Is not sure his last tetanus was. Denies any prodrome to the stumbling/falling but is not sure if he lost consciousness when he did hit his head. His was not home at the time. Came in for further evaluation. Patient has no other complaints at this time. He states that he supposed to have a left hip surgery with Dr. Mckinney this coming week. Tetanus Immunization: Unknown [facility] Medical History Dementia High cholesterol History of hiatal hernia History of edema Loss of hearing Wears dentures Wears glasses Bladder disease Prostate disease Non-smoker History of stress test History of echocardiogram Hypertension Cardiology follow-up encounter COVID (03/2022) Thrombocytopenia Anxiety Pulmonary embolism Vitamin B12 deficiency anemia, unspecified Vitamin B12 deficiency Depression Bilateral hearing loss Inguinal hernia Polyp of colon Calculus of gallbladder without cholecystitis without obstruction Other bursitis of knee, right knee Pill rolling tremor Polyuria Memory loss Early satiety Genetic susceptibility to other disease Dizziness PAD (peripheral artery disease) Excessive sweating Fatigue Pulmonary artery mass Atherosclerotic heart disease of [place] coronary artery without angina pectoris Mass of cardiovascular structure (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 Pulmonary emboli Tinnitus Hiatal hernia Hyperlipidemia GERD (gastroesophageal reflux disease) Home Medications ?Medication ?Instructions ?Recorded ?Last Taken ?Type aspirin 81 mg chewable tablet 81 mg PO DAILY 11/04/16 05/20/24 History omeprazole 40 mg capsule,delayed 40 mg PO DAILY 11/04/16 05/20/24 History release cholecalciferol (vitamin D3) 25 125 mcg PO DAILY 05/27/20 05/20/24 History mcg (1,000 unit) capsule lactobacillus combination no.8 3 3,000 mmu cells PO DAILY 05/27/20 05/20/24 History billion cell capsule (Adult Probiotic) cyanocobalamin (vitamin B-12) 1,000 mcg PO DAILY 03/02/24 05/20/24 History 1,000 mcg tablet (Vitamin B-12) atorvastatin 10 mg tablet 10 mg PO DAILY cholesterol #90 tabs 06/11/24 Unknown Rx Allergy/AdvReac Type Severity Reaction Status Date / Time No Known Allergies Allergy Verified 08/04/24 16:04 Family History Father Cancer Prostate cancer Mother Anxiety and depression Surgical History History of cardiac catheterization History of transurethral resection of prostate History of repair of rotator cuff H/O hernia repair Hx of cholecystectomy History of partial knee replacement History of coronary artery stent placement (07/12/11) Social History household members: spouse Smoking Status: Never smoker alcohol intake: current alcohol intake frequency: holidays/special occasions only Alcohol type: wine substance use type: does not use caffeine: Yes Type: coffee Number of servings: 2 what type of physical activity do you participate in: none seatbelt use: always do you feel safe at home: Yes ROS ROS ED Constitutional Constitutional ED: Denies chills, fever(s) or sweats Eyes Eyes: Denies blurry vision or change in vision Cardiovascular Cardiovascular: Denies chest pain Respiratory/Chest Respiratory/Chest: Denies dyspnea Gastrointestinal Gastrointestinal: Denies nausea or vomiting Musculoskeletal Musculoskeletal: Reports other Details: Right shoulder, hand and knee pain Integumentary Reports Abrasions and other Details: Abrasions to the right shoulder and right knee. Superficial abrasion to the right hand. Laceration to the right judaism/eyebrow area Neurologic Neurologic: Denies paresthesias or weakness Hematologic/Lymphatic Hematologic/Lymphatic: Denies easy bleeding or easy bruising EXAM Physical Exam Const Vital Signs: 08/04/24 16:04 08/04/24 16:57 08/04/24 18:04 Temperature 98.8 F Temperature Source Oral Pulse Rate 96 85 Respiratory Rate 16 20 H Respiratory Effort Normal Respiratory Depth Normal Respiratory Pattern Normal Blood Pressure 142/82 H 150/67 H Blood Pressure Mean 102 94 Pulse Ox 97 98 Oxygen Delivery Method Room Air Room Air Room Air Positive well nourished and well developed General Appearance ED: well developed and NAD HEENT HEAMOL Narrative: Bruising and slightly macerated laceration that is full-thickness to the lateral aspect of the right eyebrow. No hemotympanum. No septal hematoma. No signs of basilar skull fracture. Eyes PERRL and EOMs intact bilaterally Neck full ROM General: Negative for tenderness Chest Wall inspection of chest normal and palpation of chest normal Resp normal respiratory effort and clear to auscultation bilaterally Cardio regular rhythm Rate: regular rate GI normal to inspection, nondistended, normoactive bowel sounds and non-tender Back/Spine normal to inspection and no thoracic nor lumbar tenderness Extremity full ROM Extremity Narrative: No bony tenderness or decreased range of motion. No joint effusions appreciated. Pelvis is stable no deformity of the lower extremities. Normal range of motion specifically of the right knee and right hand. There is some bruising and tenderness over the right thenar eminence. No tenderness over the anatomical snuffbox. No tenderness with axial loading of the right thumb. Neuro oriented x3, moves all extremities, no focal motor deficits and no sensory deficits noted Sensorium / Orientation: alert Motor Exam: Negative for strength abnormal Psych mental status grossly normal and thought process normal Skin Skin Narrative: 1.5 cm slightly irregular/jagged full-thickness laceration to the right lateral eyebrow. There is surrounding ecchymosis. There is area of abrasion with slight bleeding over the right anterior shoulder as well as the right lateral knee. PROC Procedures Lacerations right eyebrow : Length: 0.79 in Depth: Skin Shape: irregular, jagged Prep: Chlorhexadine Laceration repair: Irrigated, Skin sutures and - (LET) Irrigated (ml): 200 Number of Sutures/Casandra: 3 Suture Information: Ethilon, Simple and 5-0 MDM MDM MDM Narrative Medical decision making narrative: Patient is evaluated for what sounds mechanical fall with head injury. He is not on any blood thinners. Differential includes laceration, concussion, skull fracture, cervical spine injury, intracranial hemorrhage, hand fracture, contusions and abrasions. Patient is not having focal weakness or neurologic deficits. Will update tetanus. Will obtain CT of the brain and cervical spine to rule out more severe injury. Right hand x-ray is also obtained. X-ray of the right hand and wrist reviewed by myself as well as radiology do not show any acute process. CT imaging shows right frontal scalp hematoma as well as chronic changes but no other acute traumatic changes or findings. Suture repair performed which patient tolerated well. Tetanus is updated. Patient counseled on localized wound care. Given return precautions. Counseled that sutures should be removed in 5 to 7 days. Discharged home in stable condition. Radiography Diagnostic Testing: Clinical Impression(s) from Imaging Studies Brain CT 08/04/24 17:27 IMPRESSION: 1. Right frontal scalp hematoma. 2. Chronic microvascular ischemic changes. No acute intracranial pathology or calvarial injury. Electronically Signed: Charly EstradaDO at 18:22 EDT , Cervical Spine CT 08/04/24 17:27 IMPRESSION: Degenerative changes in the cervical spine. No evidence of acute posttraumatic change. Electronically Signed: Charly EstradaDO at 18:12 EDT , Wrist X-Ray 08/04/24 17:27 IMPRESSION: No evidence of an acute fracture or dislocation. Degenerative changes and soft tissue swelling. Electronically Signed: Charly EstradaDO at 18:23 EDT , Hand X-Ray 08/04/24 18:05 IMPRESSION: Diffuse soft tissue swelling. Degenerative changes. No acute fracture or dislocation. Electronically Signed: Charly WhiteDO radha at 18:24 EDT , Discharge Plan Triage Chief Complaint: Head Injury ED Provider: Aretha Gutierrez Dx/Rx/DC Orders Clinical Impression: Head injury due to trauma, Laceration of eyebrow, right, Contusion of hand, right, Abrasions of multiple sites Instructions: ED Abrasion, ED Hand Contusion, ED FACIAL LACERATION Suture Tape Prescriptions: No Action cholecalciferol (vitamin D3) 25 mcg (1,000 unit) capsule 125 mcg PO DAILY Adult Probiotic 3 billion cell capsule 3,000 mmu cells PO DAILY Rx Instructions: administer with a meal omeprazole 40 MG capsule 40 mg PO DAILY Patient Comments: ACID REFLUX MED aspirin 81 MG tablet,chewable 81 mg PO DAILY Patient Comments: BLOOD THINNER Rx Instructions: WILL STOP TAKING DAY PRIOR cyanocobalamin (vitamin B-12) [Vitamin B-12] 1,000 mcg tablet 1,000 mcg PO DAILY atorvastatin 10 mg tablet 10 mg PO DAILY Qty: 90 3RF Primary Care Provider: Zully Iyer Referrals: Zully Iyer, FAMILY PROTECTION SPECIALIST-C [Primary Care Provider] - Activity Restrictions/Additional Instructions: Your CT did not show any bleeding around the brain, skull fracture or neck fractures. There are some chronic changes found unrelated to the fall today associated with aging. X-ray just showed swelling of the hand with no fracture/broken bone. Ice and rest your right hand as it heals. Follow-up with your orthopedist. Sutures should be removed and about 5 days. Keep clean and dry. You may apply [id number] bacitracin ointment or petroleum jelly to your abrasions as well as your laceration. Return if you have any new symptoms, weakness, severe headache or further concerns. Print Language: Luxembourgish Disposition Disposition: Home, Self Care
[2024-08-04] MEDS: Diphth,Pertuss(Acell),Tet Vac 0.5 ML Vial IM (17:39)
[2024-08-04] MEDS: Lidocaine/Epi/Tetracaine 50 ML 1 APPLIC TOPICAL (17:39)
[2024-08-04 18:04] VITALS: BP 150/67; PULSE 85; RESP 20; O2SAT 98
--- NOTE | 2024-08-04 18:05 | RAD_ITS ---
EXAM: XR RIGHT HAND COMPLETE, 3 OR MORE VIEWS CLINICAL INDICATION: Injury/Pain TECHNIQUE: Frontal, lateral and oblique views of the right hand. COMPARISON: Wrist on the same date. FINDINGS: BONES/JOINTS: Diffuse interphalangeal, metacarpophalangeal, and intercarpal joint arthrosis. No acute fracture. No subluxation. Normal alignment. No sclerotic or destructive changes observed. SOFT TISSUES: Diffuse soft tissue swelling. No radiopaque foreign body. RAD/Hand Min 3 Views IMPRESSION: Diffuse soft tissue swelling. Degenerative changes. No acute fracture or dislocation. Electronically Signed: Charly Estrada DO at 18:24 EDT ,
[2024-08-04 19:36] VITALS: BP 141/70; PULSE 87; RESP 18; TEMP 36.6; O2SAT 95
== END 2024-08-04 19:41 | disposition home or self-care (01) ==
PROVIDERS: Emergency Provider Emergency Medicine; PCP Nurse Practitioner Family; Visit Provider Emergency Medicine
DX: S01.111A Laceration without foreign body of right eyelid and periocular area, initial encounter (principal); F03.90 Unspecified dementia, unspecified severity, without behavioral disturbance, psychotic disturbance, mood disturbance, and anxiety; S60.221A Contusion of right hand, initial encounter; I25.10 Atherosclerotic heart disease of native coronary artery without angina pectoris; W19.XXXA Unspecified fall, initial encounter; Z86.16 Personal history of COVID-19; Z86.711 Personal history of pulmonary embolism; Z95.5 Presence of coronary angioplasty implant and graft; Z23 Encounter for immunization
CPT/HCPCS: 12011; 70450; 72125; 73110; 73130; 90471; 90715; 99283

== ENCOUNTER 2024-08-13 07:26 | Observation (INO) | payer MEDICARE, SELFPAY ==
[2024-07-30 12:41] LABS: Absolute Neutrophil Count 3.9 X10^3/uL (2.0-7.7); Basophil# 0.02 X10^3/uL; Basophil% 0.3 % (0-1); Eosinophils% 3.1 % (0-5); Hematocrit 47.2 % (40-54); Hemoglobin 15.7 g/dL (13.0-16.5); Lymphocyte % 26.6 % (19-41); Mean Corp Hgb Conc 33.3 g/dL (32-36); Mean Corpuscular Volume 93.3 fL (80-94); Mean Platelet Vol. 9.8 fl (6.2-12.0); Monocyte# 0.62 X10^3/uL; Monocyte% 9.7 % (0-10); NRBC Flagged by Analyzer 0 % (0-5); Neutrophil # 3.85 X10^3/uL (2.7-7.7); Neutrophil % 60.1 % (47-70); Platelet Count 144 K/mm3 (150-450); RBC Distribution Width CV 12.8 % (11.6-14.6); RBC Distribution Width SD 43.8 fl (35.1-43.9); Red Blood Count 5.06 M/mm3 (4.6-6.2); White Blood Count 6.4 K/mm3 (4.4-11.0)
[2024-07-30 12:58] LABS: Albumin, Serum 3.2 g/dL (3.2-5.0); Anion Gap 0 (5-15); BUN 20 mg/dL (7-18); BUN/Creat Ratio 17.5 RATIO (10-20); Calcium,Total 8.5 mg/dL (8.5-10.1); Chloride 109 mmol/L (98-107); Creatinine, Serum 1.14 mg/dL (0.70-1.30); EST Glomerular Filtration Rate 64 mL/min (>60); Est Glom Filt Rate - Afr Amer 78 mL/min (>60); Glucose 104 mg/dL (74-106); Potassium 4.4 mmol/L (3.5-5.1); Sodium Level 140 mmol/L (136-145)
[2024-07-30 19:33] LABS: Magnesium 1.9 mg/dL (1.6-2.6)
[2024-08-13] VITALS (15 sets, daily range): BP systolic 99–152; BP diastolic 51–89; PULSE 86–102; RESP 16–18; TEMP 36.3–36.9; O2SAT 4–99; BMI 27.1
[2024-08-13] MEDS: Lactated Ringers 1,000 ML 999 ML IV ×2 (07:25→11:00)
[2024-08-13] MEDS: Celecoxib 200 MG Capsule 400 MG PO (07:28)
[2024-08-13] MEDS: Acetaminophen 500 MG Tablet 1000 MG PO ×3 (07:28→22:21)
[2024-08-13] MEDS: Magnesium 2 GM for ERAS IV (07:28)
[2024-08-13] MEDS: Gabapentin 600 MG Tablet PO (07:29)
[2024-08-13 07:51] LABS: Bedside Glucose 77 mg/dL (74-106)
[2024-08-13 08:40] LABS: INR Fingerstick 1.1; Prothrombin Time Fingerstick 13.3 SEC (11.7-14.9)
[2024-08-13] MEDS: Cefazolin 2 GM in Syringe IV (09:10)
[2024-08-13] MEDS: dexAMETHasone 10 MG/ML Vial IV (09:15)
[2024-08-13] MEDS: JPS (Morphine 10mg/ml) OPERA.SITE (10:21)
[2024-08-13] MEDS: TXA in NS 100ml (Placed in Wound) OPERA.SITE (10:21)
[2024-08-13] MEDS: Lactated Ringers 1,000 ML 125 ML IV (12:32)
[2024-08-13] MEDS: Cefazolin 1 GM/50 ML BAG IV (17:46)
[2024-08-13] MEDS: Senna/Docusate Sodium 1 Tablet 2 TABLET PO (22:20)
[2024-08-13] MEDS: Atorvastatin Calcium 10 MG Tablet PO (22:21)
[2024-08-14 02:27] VITALS: BP 111/60; PULSE 93; RESP 18; TEMP 37.1; O2SAT 96
[2024-08-14] MEDS: Cefazolin 1 GM/50 ML BAG IV (02:35)
[2024-08-14 06:07] VITALS: BP 139/74; PULSE 95; RESP 18; TEMP 36.8; O2SAT 97
[2024-08-14] MEDS: Rivaroxaban 10 MG Tablet PO (06:14)
[2024-08-14 07:40] LABS: Hematocrit 40.9 % (40-54); Hemoglobin 13.6 g/dL (13.0-16.5); Mean Corp Hgb Conc 33.3 g/dL (32-36); Mean Corpuscular Hgb 30.6 pg (27.0-32.0); Mean Corpuscular Volume 91.9 fL (80-94); Mean Platelet Vol. 9.8 fl (6.2-12.0); Platelet Count 149 K/mm3 (150-450); RBC Distribution Width CV 12.5 % (11.6-14.6); RBC Distribution Width SD 41.7 fl (35.1-43.9); Red Blood Count 4.45 M/mm3 (4.6-6.2); White Blood Count 14.3 K/mm3 (4.4-11.0)
[2024-08-14] MEDS: Lactobacillis Acidophilus 1 CAP PO (07:58)
[2024-08-14] MEDS: Acetaminophen 500 MG Tablet 1000 MG PO (07:58)
[2024-08-14] MEDS: Aspirin 81 MG TAB.CHEW PO (07:59)
[2024-08-14 08:00] LABS: Anion Gap 7 (5-15); BUN 17 mg/dL (7-18); Calcium,Total 8.3 mg/dL (8.5-10.1); Chloride 108 mmol/L (98-107); Creatinine, Serum 1.21 mg/dL (0.70-1.30); EST Glomerular Filtration Rate 60 mL/min (>60); Est Glom Filt Rate - Afr Amer 73 mL/min (>60); Estimated Creatinine Clearance 46.32 ml/min; Glucose 144 mg/dL (74-106); Potassium 4.2 mmol/L (3.5-5.1); Sodium Level 139 mmol/L (136-145)
[2024-08-14] MEDS: Pantoprazole Sodium 40 MG Tablet PO (10:45)
[2024-08-14] MEDS: Famotidine 20 MG Tablet PO (10:45)
[2024-08-14] MEDS: Senna/Docusate Sodium 1 Tablet 2 TABLET PO (10:45)
[2024-08-14] MEDS: Cholecalciferol (Vit D3) 125 MCG CAPSULE (5,000 UNITS) PO (10:46)
[2024-08-14] MEDS: Cyanocobalamin 500 MCG Tablet 1000 MCG PO (10:46)
== END 2024-08-14 12:20 | disposition home health service (06) ==
LOC: SDC 11:27 → MS3 11:27
PROVIDERS: Anesthesiology; Admitting Provider Specialist; PCP Nurse Practitioner Family; Referring Provider Specialist; Visit Provider Specialist
PROC: (CPT 27284; principal; 2024-08-13 08:20)
DX: M16.0 Bilateral primary osteoarthritis of hip (principal); F03.90 Unspecified dementia, unspecified severity, without behavioral disturbance, psychotic disturbance, mood disturbance, and anxiety; I25.10 Atherosclerotic heart disease of native coronary artery without angina pectoris; E78.00 Pure hypercholesterolemia, unspecified; K21.9 Gastro-esophageal reflux disease without esophagitis; Z86.16 Personal history of COVID-19; Z79.82 Long term (current) use of aspirin; I10 Essential (primary) hypertension; Z79.899 Other long term (current) drug therapy
CPT/HCPCS: 27130; 01214; 36569; 36415; 36416; 73501; 73502; 76000; 80048; 82040; 82962; 83735; 85025; 85027; 85610; 87081; 88307; 88311; 94668; 96361; 96365; 96366; 97110; 97162; 97166; 97530; 97535; 99221; 99252; C1776; J7120; G0378; G0463; J2405

== ENCOUNTER → 2024-08-20 | Outpatient (CLI) | payer MEDICARE, SELFPAY ==
--- NOTE | 2024-08-20 10:51 | VDLE_ITS ---
Reason For Study: Pain LLE RIGHT LEFT CFV is compressible, spontaneous, phasic, GSV is normal. competent and demonstrates normal CFV is compressible, spontaneous, phasic, augmentation. competent, and demonstrates normal Procedure augmentation. This is a venous duplex using B-mode, color FV is compressible, spontaneous, phasic, flow and spectral Doppler. competent and demonstrates normal Exam performed in department. augmentation. A preliminary report was called and/or faxed POP V is compressible, spontaneous, phasic, to Dr. Mckinney. competent and demonstrates normal augmentation. T/P Trunk is compressible. PTV is compressible. LT PerV is compressible. VL/Venous Duplex US, Unilateral Interpretation Summary Deep veins of the left lower extremity are patent and compressible segmentally. There is no evidence of left lower extremity deep vein thrombosis. Valvular competence appears intac t within the proximal deep venous system on the left . The left great saphenous vein appears patent a nd compressible segmentally. The right common femoral vein is patent and compressible . Ordering Physician: Bhupinder Mckinney Referring Physician: Zully Iyer Performed By: Svetlana Murillo, BLANCA, RVT
== END | disposition home or self-care (01) ==
LOC: CVS 10:49
PROVIDERS: PCP Nurse Practitioner Family; Referring Provider Specialist; Visit Provider Specialist
DX: M79.662 Pain in left lower leg (principal)
CPT/HCPCS: 93971

== ENCOUNTER 2024-08-23 16:35 | Emergency (ER) | payer MEDICARE, SELFPAY ==
[2024-08-23 16:36] VITALS: BP 126/67; PULSE 96; RESP 16; TEMP 37; O2SAT 98
[2024-08-23 16:37] VITALS: BP 126/67; PULSE 99; RESP 16; TEMP 37; O2SAT 98
[2024-08-23] MEDS: Doxycycline 100 MG CAPSULE PO (17:27)
--- NOTE | 2024-08-23 17:27 | EDS_ITS ---
<Statement entered by Justen Goldstein DO - 08/23/24 20:40> Patient was seen and examined with physician operations and intelligence assistant Leah All components of the history and physical confirmed and agreed. History of present illness and physical exam: Patient is a 89-year-old male past medical history of CAD, hyperlipidemia who presents to the emergency department the chief complaint of concern for cellulitis to his left lower extremity. A patient had a total hip replacement on 08/13/[address] Mckinney. Patient states that he scratched his left lower leg and was concerned that he developed cellulitis as this has happened in the past on the other leg. Patient states that his leg has been swollen now for quite some time and he recently had a ultrasound of his leg and was noted to be normal did not show any evidence of blood clot. He states that he is on Xarelto currently for prevention as he has had previous DVT with PE. Patient states that he is unsure of his scar looks more red than usual and his significant other at bedside also cannot confirm this. Patient states that overall he feels well. Review of systems: Agree with above Physical exam: General: Patient was lying in bed rest comfortably did not appear to be acute distress Head: Atraumatic, normocephalic Eyes: PERRL bilateral, EOMI bilateral, no conjunctival injection noted Neck: Soft, supple, trachea midline Cardiovascular: Regular rate and rhythm no murmurs gallops rubs noted Respiratory: Clear to auscultation bilaterally no rales rhonchi or wheeze noted Abdomen: Soft, nondistended, nontender to palpation no bowel sounds present in 4 Musculoskeletal: Patient does have swelling diffusely to his left lower extremity and they state that this is unchanged Extremities: DP pulses +2/4 in the bilateral lower extremities, +4/5 strength noted in the bilateral upper and lower extremities Neurological: Patient follow commands knew that he was at [facility] years 2023 Skin: Patient has mild erythema to the left lower nazario, patient has mild erythema to the surgical site near the anterior aspect of his left hip. No fluctuance no purulent drainage noted patient cannot tell me if this is worse or about the same from his surgery. [facility] Patient is a 89-year-old male who presented to the emergency department for concern of cellulitis. Patient is nontoxic in appearance and once again his surgical incision appears to be healing well with some mild overlying erythema this could be postsurgical changes since the patient cannot definitively exclude cellulitis and concern for a mild cellulitis developing in his left lower extremity will place the patient on doxycycline. Patient was encouraged to keep a close eye on this while on antibiotics and return for worsening redness while on antibiotics. He states that he is to have his sutures removed on Tuesday in the office by Dr. Mckinney he was advised to keep this appointment. He is agreeable with this plan as well as significant other at bedside he would like to go home at this point time all question concerns answered he is discharged home in stable condition. Plan: Final impression: Left leg cellulitis Disposition: Patient will be discharged home in stable condition Supervising attending attestation: Justen ANDERSON History of Present Illness Chief Complaint: Other, Pain/Inj Narrative Narrative: Patient presenting today with concerns for infection to his left lower extremity. He had a total left hip replacement performed 08/13/[address] Mckinney. He denies any complications., He has been doing well. He noticed swelling and bruising to his left leg on Tuesday, he had a venous duplex ultrasound obtained that was negative for DVT. He is on Xarelto due to previous history of PE. Today, his thought that his left leg appeared more swollen. They have concerns for postoperative infection. He is unsure if his scar looks more red than usual, he denies any discharge from the area. He has had no fevers and chills. He reports that he feels well otherwise. He has a PMH of CAD, HLD. [facility] Medical History Dementia High cholesterol History of hiatal hernia History of edema Loss of hearing Wears dentures Wears glasses Bladder disease Prostate disease Non-smoker History of stress test History of echocardiogram Hypertension Cardiology follow-up encounter COVID (03/2022) Thrombocytopenia Anxiety Pulmonary embolism Vitamin B12 deficiency anemia, unspecified Vitamin B12 deficiency Depression Bilateral hearing loss Inguinal hernia Polyp of colon Calculus of gallbladder without cholecystitis without obstruction Other bursitis of knee, right knee Pill rolling tremor Polyuria Memory loss Early satiety Genetic susceptibility to other disease Dizziness PAD (peripheral artery disease) Excessive sweating Fatigue Pulmonary artery mass Atherosclerotic heart disease of [place] coronary artery without angina pectoris Mass of cardiovascular structure (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 Pulmonary emboli Tinnitus Hiatal hernia Hyperlipidemia GERD (gastroesophageal reflux disease) Home Medications ?Medication ?Instructions ?Recorded ?Last Taken ?Type aspirin 81 mg chewable tablet 81 mg PO DAILY 11/04/16 08/11/24 History omeprazole 40 mg capsule,delayed 40 mg PO DAILY 11/04/16 05/20/24 History release cholecalciferol (vitamin D3) 25 125 mcg PO DAILY 05/27/20 05/20/24 History mcg (1,000 unit) capsule lactobacillus combination no.8 3 3,000 mmu cells PO DAILY 05/27/20 05/20/24 History billion cell capsule (Adult Probiotic) cyanocobalamin (vitamin B-12) 1,000 mcg PO DAILY 03/02/24 05/20/24 History 1,000 mcg tablet (Vitamin B-12) atorvastatin 10 mg tablet 10 mg PO DAILY cholesterol #90 tabs 06/11/24 Unknown Rx acetaminophen 500 mg tablet 1,000 mg (2 x 500 mg) PO Q8 14 08/14/24 Unknown Rx days #84 tabs rivaroxaban 10 mg tablet (Xarelto) 10 mg PO DAILY@0600 13 days #13 08/14/24 Unknown Rx tabs sennosides 8.6 mg-docusate sodium 2 tab PO BID 3 days #12 tabs 08/14/24 Unknown Rx 50 mg tablet (Stimulant Laxative Plus) tramadol 50 mg tablet 50 - 100 mg (1 - 2 x 50 mg) PO Q6H 08/14/24 Unknown Rx PRN PRN as needed for pain 5 days #24 tabs doxycycline hyclate 100 mg capsule 100 mg PO BID 7 days #14 caps 08/23/24 Unknown Rx Allergy/AdvReac Type Severity Reaction Status Date / Time No Known Allergies Allergy Verified 08/23/24 16:35 Family History Father Cancer Prostate cancer Mother Anxiety and depression Surgical History History of cardiac catheterization History of transurethral resection of prostate History of repair of rotator cuff H/O hernia repair Hx of cholecystectomy History of partial knee replacement History of coronary artery stent placement (07/12/11) Social History household members: spouse Smoking Status: Never smoker alcohol intake: current alcohol intake frequency: holidays/special occasions only Alcohol type: wine substance use type: does not use caffeine: Yes Type: coffee Number of servings: 2 what type of physical activity do you participate in: none seatbelt use: always do you feel safe at home: Yes ROS ROS ED Constitutional Constitutional ED: Denies chills or fever(s) Cardiovascular Cardiovascular: Denies chest pain Respiratory/Chest Respiratory/Chest: Denies dyspnea Gastrointestinal Gastrointestinal: Denies abdominal pain, nausea or vomiting Musculoskeletal Musculoskeletal: Denies arthralgias or myalgias Integumentary Denies abscess or rash Neurologic Neurologic: Denies weakness EXAM Physical Exam Const Vital Signs: 08/23/24 16:36 08/23/24 16:37 08/23/24 17:30 Temperature 98.6 F 98.6 F Temperature Source Temporal Temporal Pulse Rate 96 99 Respiratory Rate 16 16 Respiratory Effort Normal Respiratory Pattern Normal Blood Pressure 126/67 H 126/67 H Blood Pressure Mean 86 86 Pulse Ox 98 98 Oxygen Delivery Method Room Air Room Air 08/23/24 17:44 Temperature 98.6 F Temperature Source Pulse Rate 99 Respiratory Rate 16 Respiratory Effort Respiratory Pattern Blood Pressure 126/67 H Blood Pressure Mean 86 Pulse Ox 98 Oxygen Delivery Method Positive well nourished, well developed and no apparent distress General Appearance ED: well developed HEENT Reports normocephalic and head/scalp atraumatic Mouth ED: Yes moist mucous membranes normal Eyes PERRL and EOMs intact bilaterally Neck full ROM and supple Chest Wall inspection of chest normal Resp normal respiratory effort and clear to auscultation bilaterally Cardio regular rate and regular rhythm GI soft to palpation, non-tender, non-distended and no masses Back/Spine normal ROM and normal to inspection Extremity normal to inspection and full ROM Extremity Narrative: Nonpitting peripheral edema to the left lower extremity, the incision itself is slightly erythemic without any dehiscence, purulent discharge, or warmth. There is no surrounding erythema. Small scratch to the left medial lower leg, no purulence, erythema, or warmth to this. Left DP pulse 2+, good cap refill, sensation intact. Neuro oriented x3, CN's II-XII intact bilaterally, moves all extremities, no focal motor deficits and no sensory deficits noted Sensorium / Orientation: awake and alert Psych mental status grossly normal and thought process normal Skin no rashes or lesions noted and no wounds MDM MDM MDM Narrative Medical decision making narrative: Patient presenting today with concerns for infection to his left hip. He is nontoxic-appearing, he is afebrile, his vitals are unremarkable. He just had a left hip surgery performed on 08/13/[address] Mckinney. He has had swelling to the left lower extremity over the last several days. On Tuesday, he did have a venous duplex ultrasound obtained to rule out DVT which was negative. On exam, he does have swelling to the leg, there is minimal slight erythema to the distal aspect of his leg, his incision is slightly erythemic but no surrounding erythema, warmth, or purulent discharge. He is not having pain to his left hip. He does have a small scratch to the distal medial aspect of his leg. Given his swelling, we will put him on a course of doxycycline to cover for potential cellulitis. He does follow-up with Dr. Mckinney on Tuesday. Return instructions were discussed. Patient discharged home in stable condition. Discharge Plan Triage Chief Complaint: Other, Pain/Inj ED Midlevel Provider: Alessia Bowman ED Provider: Justen Goldstein Dx/Rx/DC Orders Clinical Impression: Cellulitis of left leg Instructions: Cellulitis Dc Prescriptions: New doxycycline hyclate 100 mg capsule 100 mg PO BID 7 Days Qty: 14 0RF No Action cholecalciferol (vitamin D3) 25 mcg (1,000 unit) capsule 125 mcg PO DAILY Adult Probiotic 3 billion cell capsule 3,000 mmu cells PO DAILY Rx Instructions: administer with a meal omeprazole 40 MG capsule 40 mg PO DAILY Patient Comments: ACID REFLUX MED aspirin 81 MG tablet,chewable 81 mg PO DAILY Patient Comments: BLOOD THINNER Rx Instructions: WILL STOP TAKING DAY PRIOR acetaminophen 500 mg Tablet 1,000 mg PO Q8 14 Days Qty: 84 0RF Rx Instructions: Do not take more than 3000 mg Tylenol in a 24-hour period. Xarelto 10 mg Tablet 10 mg PO DAILY@0600 13 Days Qty: 13 0RF Rx Instructions: Take Xarelto for 2 weeks postoperatively for DVT prophylaxis sennosides-docusate sodium [Stimulant Laxative Plus] 8.6-50 mg Tablet 2 tab PO BID 3 Days Qty: 12 0RF Rx Instructions: Take until first bowel movement, then as needed tramadol 50 mg Tablet 50 - 100 mg PO Q6H PRN PRN (Reason: as needed for pain) 5 Days Qty: 24 0RF cyanocobalamin (vitamin B-12) [Vitamin B-12] 1,000 mcg tablet 1,000 mcg PO DAILY atorvastatin 10 mg tablet 10 mg PO DAILY Qty: 90 3RF Primary Care Provider: Zully Iyer Referrals: Zully Iyer, PUBLICATIONS SALES REPRESENTATIVE-C [Primary Care Provider] - Activity Restrictions/Additional Instructions: Follow-up with Dr. Mckinney on Tuesday. Return for any other concerns. Print Language: Cuban Disposition Disposition: Home, Self Care Discharge Date/Time: 08/23/24 17:45
[2024-08-23 17:29] VITALS: BMI 27.3
[2024-08-23 17:44] VITALS: BP 126/67; PULSE 99; RESP 16; TEMP 37; O2SAT 98
== END 2024-08-23 17:45 | disposition home or self-care (01) ==
PROVIDERS: Emergency Provider Emergency Medicine; PCP Nurse Practitioner Family; Referring Provider Emergency Medicine; Visit Provider Emergency Medicine
DX: L03.116 Cellulitis of left lower limb (principal); I25.10 Atherosclerotic heart disease of native coronary artery without angina pectoris; Z86.16 Personal history of COVID-19
CPT/HCPCS: 99282

== ENCOUNTER → 2024-08-27 | Outpatient (CLI) | payer MEDICARE, SELFPAY ==
--- NOTE | 2024-08-27 14:55 | VDLE_ITS ---
Reason For Study: Pain LLE RIGHT LEFT CFV is compressible, spontaneous, phasic, GSV is normal. competent and demonstrates normal CFV is compressible, spontaneous, phasic, augmentation. competent, and demonstrates normal Procedure augmentation. This is a venous duplex using B-mode, color FV is compressible, spontaneous, phasic, flow and spectral Doppler. competent and demonstrates normal Exam performed in department. augmentation. A preliminary report was called and/or faxed POP V is compressible, spontaneous, phasic, to Abdirahman KNIGHT. competent and demonstrates normal augmentation. T/P Trunk is compressible. PTV is compressible. LT PerV is compressible. VL/Venous Duplex US, Unilateral Interpretation Summary Deep veins of the left lower extremity are patent and compressible segmentally. There is no evidence of left lower extremity deep vein thrombosis. Valvular competence appears intac t within the proximal deep venous system on the left . The left great saphenous vein appears patent a nd compressible segmentally. The right common femoral vein is patent and compressible . Ordering Physician: Abdirahman Colunga Referring Physician: Zully Iyer Performed By: Svetlana Murillo, BLANCA, RVT
== END | disposition home or self-care (01) ==
PROVIDERS: PCP Nurse Practitioner Family; Referring Provider Physician Assistant; Visit Provider Physician Assistant
DX: M79.662 Pain in left lower leg (principal)
CPT/HCPCS: 93971

== ENCOUNTER → 2025-04-09 | Outpatient (CLI) | payer MEDICARE, SELFPAY ==
[2025-04-09 16:36] LABS: AST(SGOT) 30 U/L (<=37); Alanine Aminotransfer ALT/SGPT 19 U/L (<=46); Albumin, Serum 3.9 g/dL (3.4-4.8); Alkaline Phosphatase 70 U/L (40-129); Bilirubin, Direct 0.13 mg/dL (0.00-0.30); Cholesterol 113 mg/dL (<=200); Globulin 2.8 g/dL (2.2-4.2); Low Density Lipoprotein Calc. 60 mg/dL; Triglycerides 113 mg/dL; Very Low Density Lipoprotein 23 mg/dL (5-40); cholesterol:hdl ratio screen 3.75
== END | disposition home or self-care (01) ==
LOC: LAB 15:10
PROVIDERS: PCP Nurse Practitioner Family; Referring Provider Physician Assistant Medical; Visit Provider Physician Assistant Medical
DX: E78.5 Hyperlipidemia, unspecified (principal); Z95.5 Presence of coronary angioplasty implant and graft
CPT/HCPCS: 36415; 80061; 80076

== ENCOUNTER 2025-05-15 08:35 | Emergency (ER) | payer MEDICARE, SELFPAY ==
[2025-05-15 08:38] VITALS: BP 174/77; PULSE 75; RESP 17; TEMP 36.7; O2SAT 97; BMI 29.2
--- NOTE | 2025-05-15 08:47 | EX.ED.DYSGE1 ---
HPI History of Present Illness Chief Complaint: Dizziness [facility] Medical History Dementia High cholesterol History of hiatal hernia History of edema Loss of hearing Wears dentures Wears glasses Bladder disease Prostate disease Non-smoker History of stress test History of echocardiogram Hypertension Cardiology follow-up encounter COVID (03/2022) Thrombocytopenia Anxiety Pulmonary embolism Vitamin B12 deficiency anemia, unspecified Vitamin B12 deficiency Depression Bilateral hearing loss Inguinal hernia Polyp of colon Calculus of gallbladder without cholecystitis without obstruction Other bursitis of knee, right knee Pill rolling tremor Polyuria Memory loss Early satiety Genetic susceptibility to other disease Dizziness PAD (peripheral artery disease) Excessive sweating Fatigue 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 Mass of cardiovascular structure (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 Pulmonary emboli Tinnitus Hiatal hernia Hyperlipidemia GERD (gastroesophageal reflux disease) Home Medications ?Medication ?Instructions ?Recorded ?Last Taken ?Type aspirin 81 mg chewable tablet 81 mg PO DAILY 11/04/16 08/11/24 History omeprazole 40 mg capsule,delayed 40 mg PO DAILY 11/04/16 05/20/24 History release cholecalciferol (vitamin D3) 25 125 mcg PO DAILY 05/27/20 05/20/24 History mcg (1,000 unit) capsule lactobacillus combination no.8 3 3,000 mmu cells PO DAILY 05/27/20 05/20/24 History billion cell capsule (Adult Probiotic) cyanocobalamin (vitamin B-12) 1,000 mcg PO DAILY 03/02/24 05/20/24 History 1,000 mcg tablet (Vitamin B-12) acetaminophen 500 mg tablet 1,000 mg PO Q8 PRN 04/09/25 Unknown History atorvastatin 10 mg tablet 10 mg PO DAILY cholesterol #90 tabs 04/09/25 Unknown Rx Allergy/AdvReac Type Severity Reaction Status Date / Time No Known Allergies Allergy Verified 05/15/25 08:40 Family History Father Cancer Prostate cancer Mother Anxiety and depression Surgical History S/P total left hip arthroplasty (08/13/24) History of cardiac catheterization History of transurethral resection of prostate History of repair of rotator cuff H/O hernia repair Hx of cholecystectomy History of partial knee replacement History of coronary artery stent placement (07/12/11) Social History household members: spouse Smoking Status: Never smoker alcohol intake: current alcohol intake frequency: holidays/special occasions only Alcohol type: wine substance use type: does not use caffeine: Yes Type: coffee Number of servings: 2 what type of physical activity do you participate in: none seatbelt use: always do you feel safe at home: Yes EXAM Physical Exam Const Vital Signs: 05/15/25 08:38 05/15/25 10:35 Temperature 98.1 F Temperature Source Temporal Pulse Rate 75 75 Respiratory Rate 17 20 H Blood Pressure 174/77 H 136/78 H Blood Pressure Mean 109 97 Pulse Ox 97 97 Oxygen Delivery Method Room Air MDM MDM MDM Narrative Medical decision making narrative: HISTORY OF PRESENT ILLNESS: Chief complaint: Dizziness/headache 89-year-old male history of dementia, CAD, hyperlipidemia, GERD presents with concern for dizziness and headache (per triage note). Patient denies any headache symptoms to me. States he thinks he may be dehydrated. States he not been drinking as usual. Denies neck pain, chest pain, palpitations, abdominal pain, vomiting or new diarrhea (states he is chronic diarrhea). Denies cough fever or chills. Patient denies sudden onset or thunderclap headache, denies maximal intensity within 1 minute, vomiting, neck pain, stiffness, changes in vision, fever, history malignancy, syncope, or seizures associated with headache. REVIEW OF SYSTEMS: Pertinent positives: Headache, dizziness Pertinent negatives: Chest pain, shortness of breath PHYSICAL EXAM: Nursing triage notes reviewed, Vital signs reviewed Constitutional: please see mdm HENT: MMM Eyes: Pupils equal round and reactive to light, Extraocular muscles intact Neck: No stridor, no JVD, full neck ROM Lungs: Clear to auscultation, No wheezing or rales. No increased work of breathing, no conversational dyspnea, no accessory muscle use, no nasal flaring. No respiratory distress noted Heart: Regular rate and rhythm, No murmurs, No rubs and No gallops, 2+ distal pulses (radial, femoral, posterior tibial) in all extremities Abdomen: Soft, there is no tenderness, rigidity, rebound or guarding, no obvious peritoneal signs, no palpable pulsatile abdominal masses, no auscultated abdominal bruit : No CVAT Extremities: No edema Neuro: Alert and oriented x3, neuro exam at baseline, cranial nerves II through XII are intact. No pain with extraocular muscle movement. There is negative test of skew. 5 of 5 strength in upper and lower extremities in flexion extension. Intact sensation to light touch in upper and lower extremity dermatomes. No truncal or extremity ataxia. No dysdiadochokinesia. Normal non-ataxic gait. 2+ reflexes in upper and lower extremities. No meningeal signs. Negative Babinski. NIH of 0. Skin: No rash or lesions noted MEDICAL DECISION MAKING: Chief Complaint: please see HPI External records reviewed: Reviewed prior imaging studies: Reviewed CT scan of the brain from 2023 which showed right frontal scalp hematoma but no ICH Factors affecting care: As per HPI Social determinants of health: none History obtained from others: EMS Consults: none [facility] Narrative: Patient was initially I just hypertensive with a blood pressure 174/77 otherwise afebrile and nontoxic-appearing. Initial exam without focal neurologic deficits. Without focal cardiopulmonary abnormalities. I considered the following differential diagnosis: ICH, mass, posterior circulation CVA, arrhythmia, anemia, electrolyte disturbance, dehydration, VTE While I considered VT as a potential etiology the patient had a low risk Wells score, was not tachycardic or hypoxic, no indication for D-dimer or CT at this time. I obtained a broad lab and imaging workup to further elucidate etiology the patient's complaints to further determine if the patient was suffering from a life-threatening etiology. Initially resuscitated patient with 1 L normal saline ALL IMAGES (IF OBTAINED) HAVE BEEN PERSONALLY REVIEWED AND INTERPRETED BY MYSELF. EKG with normal sinus rhythm rate of 72, normal axis, normal intervals, no STEMI I have personally reviewed the patient's chest x-ray. Chest x-ray is unremarkable for pulmonary edema, pneumothorax, pneumonia or focal cardiopulmonary abnormality. CT scan of the brain negative CBC with no leukocytosis, noted elevated hemoglobin consistent with hemoconcentration dehydration, noted mild thrombocytopenia (similar to prior studies) CMP without evidence of acute kidney injury, significant electrolyte abnormality, anion gap to suggest end organ hypo-perfusion, no evidence of metabolic acidosis with a normal bicarbonate, no evidence of hepatobiliary obstructive pathology. High-sensitivity troponin is negative, no evidence of myocardial ischemia The synthesis of the patient's history, physical exam, labs images suggest likely dehydration as a cause of symptoms. No clear life or limb threatening etiology could be ascertained. Upon reassessment patient blood pressure improved to 136/78 encouraged more p.o. intake. Encouraged outpatient follow-up. No indication for admission at this time The patient and/or family, caregivers express understanding. The patient and/or family, caregivers agrees with the plan. Shared decision making: I will have a discussion with the patient and or visitors regarding risk/benefits of further testing or admission. They will be made aware of of the risk/benefits inherent in this decision they will be given the opportunity to voice understanding. Total critical care time today provided was at least 0 minutes. This excludes separately billable procedures. Critical care time (if documented) is secondary to the patient having high probability of clinically significant/life threatening deterioration in the patient's condition which required my urgent intervention. Impression: 1. Dizziness 2. Dehydration 3. Thrombocytopenia Dispo: Discharge home This note was generated with AMT dictation software. It may contain incorrect words, spelling, and punctuation that were not noted in review of the chart prior to signing. Lab Data Labs: Laboratory Results - last 24 hr 05/15/25 10:00 WBC 6.8 RBC 5.47 Hgb 16.9 H Hct 50.4 MCV 92.1 MCH 30.9 MCHC 33.5 RDW Std Deviation 42.3 RDW Coeff of Juanita 12.5 Plt Count 145 L MPV 9.8 Immature Gran % (Auto) 0.100 Neut % (Auto) 65.4 Lymph % (Auto) 22.5 Whitman % (Auto) 9.2 Eos % (Auto) 2.5 Baso % (Auto) 0.3 Absolute Neuts (auto) 4.4 Absolute Lymphs (auto) 1.52 Nucleated RBC % 0 Sodium 139 Potassium 3.7 Chloride 101 Carbon Dioxide 26.5 Anion Gap 12 BUN 12 Creatinine 0.97 Estim Creat Clear Calc 62.60 Est GFR (MDRD) Non-Af 74 BUN/Creatinine Ratio 12.3 Glucose 106 H Calcium 9.4 Total Bilirubin 0.62 AST 28 ALT 17 Alkaline Phosphatase 85 Troponin T High Sens 17 Total Protein 7.1 Albumin 4.2 Globulin 3.0 Albumin/Globulin Ratio 1.4 Radiography Diagnostic Testing: Clinical Impression(s) from Imaging Studies Brain CT 05/15/25 09:04 IMPRESSION: 1. No evidence of intracranial hemorrhage or acute ischemia. 2. Changes of chronic microvascular ischemia and volume loss. Reading Location: [facility] Chest X-Ray 05/15/25 09:04 IMPRESSION: No acute process is identified in the chest. Reading Location: [facility] Discharge Plan Triage Chief Complaint: Dizziness ED Provider: Demetrius Pagan Dx/Rx/DC Orders Prescriptions: No Action cholecalciferol (vitamin D3) 25 mcg (1,000 unit) capsule 125 mcg PO DAILY Adult Probiotic 3 billion cell capsule 3,000 mmu cells PO DAILY Rx Instructions: administer with a meal acetaminophen 500 mg tablet 1,000 mg PO Q8 PRN Rx Instructions: Do not take more than 3000 mg Tylenol in a 24-hour period. atorvastatin 10 mg tablet 10 mg PO DAILY Qty: 90 3RF omeprazole 40 MG capsule 40 mg PO DAILY Patient Comments: ACID REFLUX MED aspirin 81 MG tablet,chewable 81 mg PO DAILY Patient Comments: BLOOD THINNER Rx Instructions: WILL STOP TAKING DAY PRIOR cyanocobalamin (vitamin B-12) [Vitamin B-12] 1,000 mcg tablet 1,000 mcg PO DAILY Primary Care Provider: Zully Iyer Referrals: Zully Iyer, MANAS-C [Primary Care Provider] - Print Language: Yakut
--- NOTE | 2025-05-15 09:04 | CT_ITS ---
PROCEDURE: BRAIN/HEAD WITHOUT CONTRAST 05/15/2025 REASON FOR EXAM: DIZZINESS/HEADACHE TECHNIQUE: BRAIN/HEAD WITHOUT CONTRAST Coronal and Sagittal reconstruction series were provided. One or more dose reduction techniques were used (e.g., Automated exposure control, adjustment of the mA and/or kV according to patient size, use of iterative reconstruction technique. RADIATION DOSE SUMMARY: CTDlvol: 45 mGy DLP: 815 mGycm COMPARISON: August 04, 2024 FINDINGS: Brain: There is no evidence of hemorrhage, acute ischemia or mass. No extra- axial fluid collection, midline shift or mass effect. Low-density is seen in the periventricular white matter and to a lesser extent the deep white matter. CSF Spaces: Mild central volume loss is unchanged. Sinuses/Mastoids: Deviated septum to the right. Paranasal sinuses are clear. Bones: No fracture CT/Brain/Head without Contrast IMPRESSION: 1. No evidence of intracranial hemorrhage or acute ischemia. 2. Changes of chronic microvascular ischemia and volume loss. Reading Location: [id number]
--- NOTE | 2025-05-15 09:04 | RAD_ITS ---
PROCEDURE: CHEST 1 VIEW (PORTABLE) 05/15/2025 REASON FOR EXAM: DIZZINESS TECHNIQUE: Frontal view of the chest. COMPARISON: February 05, 2025 FINDINGS: Heart size is within normal limits. Central vascularity appears normal. There is no focal infiltrate or consolidation. There is no pneumothorax or effusion. Aortic calcifications are noted. There is no visible acute bony abnormality. RAD/Chest 1 View (Portable) IMPRESSION: No acute process is identified in the chest. Reading Location: [facility]
--- NOTE | 2025-05-15 09:05 | EKG12_ITS ---
Test Reason : DIZZY Blood Pressure : */* mmHG Vent. Rate : 72 BPM Atrial Rate : 72 BPM P-R Int : 170 ms QRS Dur : 92 ms QT Int : 382 ms P-R-T Axes : 62 43 56 degrees QTcB Int : 418 ms Normal sinus rhythm Normal ECG When compared with ECG of 03-Apr-2022 05:48, No significant change was found Confirmed by JAQUELIN CARRILLO, KARL ([id number]), medical editor BERTA VANCE ([id number]) on 05/21/2025 6:18:50 AM Referred By: Confirmed By: KARL HAMMER MD
[2025-05-15 10:11] LABS: Hematocrit 50.4 % (40-54); Hemoglobin 16.9 g/dL (13.0-16.5); Immature Granulocytes Count 0.010 X10^3/uL (0.0-0.0); Mean Corp Hgb Conc 33.5 g/dL (32-36); Mean Corpuscular Volume 92.1 fL (80-94); Mean Platelet Vol. 9.8 fl (6.2-12.0); NRBC Flagged by Analyzer 0 % (0-5); Platelet Count 145 K/mm3 (150-450); RBC Distribution Width CV 12.5 % (11.6-14.6); RBC Distribution Width SD 42.3 fl (35.1-43.9); Red Blood Count 5.47 M/mm3 (4.6-6.2); White Blood Count 6.8 K/mm3 (4.4-11.0)
[2025-05-15] MEDS: 0.9% Normal Saline (500mL Bag) 500 ML 1000 ML IV (10:14)
[2025-05-15 10:35] VITALS: BP 136/78; PULSE 75; RESP 20; O2SAT 97
[2025-05-15 10:56] LABS: Troponin T High Sensitivity 17 ng/L (<=22)
[2025-05-15 10:58] LABS: AST(SGOT) 28 U/L (<=37); Alanine Aminotransfer ALT/SGPT 17 U/L (<=46); Albumin, Serum 4.2 g/dL (3.4-4.8); Alkaline Phosphatase 85 U/L (40-129); Anion Gap 12 (5-15); BUN 12 mg/dL (4-19); BUN/Creat Ratio 12.3 RATIO (10-20); Calcium,Total 9.4 mg/dL (7.6-11.0); Carbon Dioxide 26.5 mmol/L (21.0-32.0); Chloride 101 mmol/L (98-108); Estimated Creatinine Clearance 62.60 ml/min (50-250); Globulin 3.0 g/dL (2.2-4.2); Glucose 106 mg/dL (70-99); Potassium 3.7 mmol/L (3.3-5.1)
[2025-05-15 12:21] VITALS: BP 138/78; PULSE 83; RESP 16; TEMP 36.6; O2SAT 100
== END 2025-05-15 12:22 | disposition home or self-care (01) ==
PROVIDERS: Emergency Provider Emergency Medicine; PCP Nurse Practitioner Family; Visit Provider Emergency Medicine
DX: R42 Dizziness and giddiness (principal); E86.0 Dehydration; D69.6 Thrombocytopenia, unspecified; I25.10 Atherosclerotic heart disease of native coronary artery without angina pectoris; E78.00 Pure hypercholesterolemia, unspecified; I10 Essential (primary) hypertension; K21.9 Gastro-esophageal reflux disease without esophagitis; Z79.899 Other long term (current) drug therapy; Z96.642 Presence of left artificial hip joint; Z90.49 Acquired absence of other specified parts of digestive tract; Z95.5 Presence of coronary angioplasty implant and graft
CPT/HCPCS: 70450; 71045; 80053; 84484; 85025; 93005; 99285; A4216

== ENCOUNTER 2025-05-31 07:00 | Day surgery (SDC) | payer MEDICARE, SELFPAY ==
--- NOTE | 2025-05-30 16:14 | PAT.ANESEVAL ---
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 When Was Last Pacemaker Check QUESTION #4 FULL TEXT: You/Your Family Experience fever (hyperthermia) with Anesthesia Last Oral Intake Last Oral intake: Last Oral Intake NPO since Meds taken in AM with sips of water? Meds patient instructed to take am of surgery PONV PONV - bander operator: PONV - bander operator Female No 05/30/25 11:00 HX of Motion Sickness No 05/30/25 11:00 HX of N/V After Surgery No 05/30/25 11:00 Non-Smoker Yes 05/30/25 11:00 Duration of Surgery greater No 05/30/25 11:00 than 60 minutes Number of Risk Factors 1 05/30/25 11:00 PONV Score Low Risk 05/30/25 11:00 Height & Weight Height & Weight: Anesthesia: Height & Weight Height 6 ft 04/09/25 14:39 Respiratory Assessment Respiratory Assessment - bander operator: Respiratory Tract Infection Hx - bander operator Hx Respiratory Tract Infection No 05/30/25 11:00 STOP Sleep Apnea STOP Sleep Apnea - bander operator: STOP Sleep Apnea - bander operator Hx Hypertension No 05/30/25 11:00 Hx Sleep Apnea Yes: non compliant 05/30/25 11:00 CPAP No 05/30/25 11:00 BIPAP No 05/30/25 11:00 Do you snore loudly (louder than talking or can be heard Do you often feel tired/ fatigued/ sleepy during daytime? Has anyone observed you stop breathing during sleep? STOP Results Positive 05/30/25 11:00 QUESTION #5 FULL TEXT : Do you snore loudly (louder than talking or can be heard through closed doors)? 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 Specify any problems Hx of Preganancy in last 3 N/A 05/30/25 11:00 Months Nurse Filling Out Transfusion JZOLLINGE 05/30/25 11:00 & Questions: Date: 05/30/25 05/30/25 11:00 Time: 11:01 05/30/25 11:00 Patient unable to answer at this time (ie. confused, unrespo /Reproduction History /Reproductive History - bander operator: /Reproductive Hx- bander operator Hx Now No 05/30/25 11:00 Gestational Age (in weeks): EDC: Hx Hx Para Hx Section SAB No 05/30/25 11:00 [facility] Medical History (Updated 05/30/25 @ 11:07 by Richa Conklin) Arthritis Easy bruising Gastric reflux Sleep apnea Dementia High cholesterol History of hiatal hernia History of edema Loss of hearing Wears dentures Wears glasses Bladder disease Prostate disease Non-smoker History of stress test History of echocardiogram Hypertension Cardiology follow-up encounter COVID (03/2022) Thrombocytopenia Anxiety Pulmonary embolism Vitamin B12 deficiency anemia, unspecified Vitamin B12 deficiency Depression Bilateral hearing loss Inguinal hernia Polyp of colon Calculus of gallbladder without cholecystitis without obstruction Other bursitis of knee, right knee Pill rolling tremor Polyuria Memory loss Early satiety Genetic susceptibility to other disease Dizziness PAD (peripheral artery disease) Excessive sweating Fatigue 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 Mass of cardiovascular structure (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 Pulmonary emboli Tinnitus Hiatal hernia Hyperlipidemia GERD (gastroesophageal reflux disease) Home Medications ?Medication ?Instructions ?Recorded ?Last Taken ?Type aspirin 81 mg chewable tablet 81 mg PO DAILY 11/04/16 08/11/24 History omeprazole 40 mg capsule,delayed 40 mg PO DAILY 11/04/16 05/20/24 History release cholecalciferol (vitamin D3) 25 125 mcg PO DAILY 05/27/20 05/20/24 History mcg (1,000 unit) capsule lactobacillus combination no.8 3 3,000 mmu cells PO DAILY 05/27/20 05/20/24 History billion cell capsule (Adult Probiotic) cyanocobalamin (vitamin B-12) 1,000 mcg PO DAILY 03/02/24 05/20/24 History 1,000 mcg tablet (Vitamin B-12) acetaminophen 500 mg tablet 1,000 mg PO Q8 PRN fever or pain 04/09/25 Unknown History atorvastatin 10 mg tablet 10 mg PO DAILY cholesterol #90 tabs 04/09/25 Unknown Rx Allergy/AdvReac Type Severity Reaction Status Date / Time No Known Allergies Allergy Verified 05/30/25 10:55 Family History Father Cancer Prostate cancer Mother Anxiety and depression Surgical History S/P total left hip arthroplasty (08/13/24) History of cardiac catheterization History of transurethral resection of prostate History of repair of rotator cuff H/O hernia repair Hx of cholecystectomy History of partial knee replacement History of coronary artery stent placement (07/12/11) Social History household members: spouse Smoking Status: Never smoker alcohol intake: current alcohol intake frequency: holidays/special occasions only Alcohol type: wine substance use type: does not use caffeine: Yes Type: coffee Number of servings: 2 what type of physical activity do you participate in: none seatbelt use: always do you feel safe at home: Yes Audit: Pertinent Findings Pertinent Findings EKG Perinent findings: 05/15/2025. Normal sinus rhythm. Stress test pertinent findings: April 03, 2022. EF of 60%. Rest and stress SPECT nuclear imaging demonstrate uniform tracer uptake and myocardial perfusion appearing within normal limits. Echo (EF%) pertinent findings: 04/02/2022. EF is 60%. RVSP is 31 mmHg. No aortic stenosis noted Consult pertinent findings: 04/09/2025. Abelardo GUPTA. 1. History of coronary artery stent placement?status post PCI/SHERRIE to the proximal LAD in 2010. Continue medical therapy. Previous hip surgery in 2023 was uncomplicated. Recommendation Anesthesia Recommendation Anesthesia recommendation: OPTIMIZED for anesthesia
[2025-05-31] VITALS (9 sets, daily range): BP systolic 112–130; BP diastolic 63–83; PULSE 81–95; RESP 14–18; TEMP 36.3–36.9; O2SAT 93–97; BMI 26.6
[2025-05-31] MEDS: Lactated Ringers 1,000 ML 15 ML IV (07:34)
--- NOTE | 2025-05-31 08:02 | PRE.ANES_ITS ---
ASA Classification* ASA Classification ASA Classification: 3 Assessment & Plan Anesthesia* Anesthesia Assessment Anesthesia Assessment: Discussed sedation and/or anesthesia options, risks, benefits, and alternatives with patient/parents/legal guardian/POA. Questions invited. The patient/parents/legal guardian/POA seems to understand and agrees to proceed with anesthesia plan. Reviewed the physical assessment, medical history, allergy history and patient home medications list prior to surgery/procedure/anesthetic and documented any changes. Performed airway and anesthesia risk assessments. Anesthesia Type Anesthesia Type: MAC (Light MAC H/o of hiatal hernia. NPO since last night. Still feels full. Denies any GERD) Anesthesia Focused Assessment* Temperature: 98.5 F Pulse Rate: 91 Blood Pressure: 130/73 Respiratory Rate: 18 Pulse Ox: 96 Airway Assessment Mouth opens: >3 cm Mallampati Score: II Labs Anesthesia Preop lab: CBC WBC 6.8 K/mm3 (4.4-11.0) 05/15/25 10:05/15/25 RBC 5.47 M/mm3 (4.6-6.2) 05/15/25 10:00 05/15/25 Hgb 16.9 g/dL (13.0-16.5) H 05/15/25 10:00 5 Hct 50.4 % (40-54) 05/15/25 10:00 05/15/25 Plt Count 145 K/mm3 (150-450) L 05/15/25 10:00 05/15/25 CHEMISTRY Potassium 3.7 mmol/L (3.3-5.1) 05/15/25 10:00 05/15/25 Sodium 139 mmol/L (133-145) 05/15/25 10:00 05/15/25 Magnesium 1.9 mg/dL (1.6-2.6) 07/30/24 12:24 07/30/24 Phosphorus 2.7 mg/dL (2.5-4.9) 04/03/22 06:40 04/03/22 BUN 12 mg/dL (4-19) 05/15/25 10:00 05/15/25 Creatinine 0.97 mg/dL (0.70-1.20) 05/15/25 10:00 05/15/25 Glucose 106 mg/dL (70-99) H 05/15/25 10:00 05/15/25 POC Glucose 77 mg/dL (74-106) 08/13/24 07:18 08/13/24 TSH 5.06 uIU/mL (0.358-3.74) H 04/03/22 06:40 07/0 11/24 COAG PT 16.0 SECONDS (11.7-14.9) H 03/28/17 15:30 /03/19 Pre-Assessment Diagnosis/Proposed Procedure Planned Operative Procedure(s): egd Anesthesia History 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 When Was Last Pacemaker Check QUESTION #4 FULL TEXT: You/Your Family Experience fever (hyperthermia) with Anesthesia Last Oral Intake Last Oral intake: Last Oral Intake NPO since 12:00 05/31/25 07:24 Meds taken in AM with sips of No 05/31/25 07:24 water? 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 Female No 05/30/25 11:00 HX of Motion Sickness No 05/30/25 11:00 HX of N/V After Surgery No 05/30/25 11:00 Non-Smoker Yes 05/30/25 11:00 Duration of Surgery greater No 05/30/25 11:00 than 60 minutes Number of Risk Factors 1 05/30/25 11:00 PONV Score Low Risk 05/30/25 11:00 Height & Weight Height & Weight: Anesthesia: Height & Weight Height 6 ft 05/31/25 07:24 Weight: 89.3 kg 05/31/25 07:24 Body Mass Index (BMI) 26.6 05/31/25 07:24 Respiratory Assessment Respiratory Assessment - nuclear reactor technician: Respiratory Tract Infection Hx - nuclear reactor technician Hx Respiratory Tract Infection No 05/30/25 11:00 STOP Sleep Apnea STOP Sleep Apnea - nuclear reactor technician: STOP Sleep Apnea - nuclear reactor technician Hx Hypertension No 05/30/25 11:00 Hx Sleep Apnea Yes: non compliant 05/30/25 11:00 CPAP No 05/30/25 11:00 BIPAP No 05/30/25 11:00 Do you snore loudly (louder than talking or can be heard Do you often feel tired/ fatigued/ sleepy during daytime? Has anyone observed you stop breathing during sleep? STOP Results Positive 05/30/25 11:00 QUESTION #5 FULL TEXT : Do you snore loudly (louder than talking or can be heard through closed doors)? 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 Specify any problems Hx of Preganancy in last 3 N/A 05/30/25 11:00 Months Nurse Filling Out Transfusion JZOLLLUZMARIA 05/30/25 11:00 & Questions: Date: 05/30/25 05/30/25 11:00 Time: 11:01 05/30/25 11:00 Patient unable to answer at this time (ie. confused, unrespo /Reproduction History /Reproductive History - nuclear reactor technician: /Reproductive Hx- nuclear reactor technician Hx Now No 05/30/25 11:00 Gestational Age (in weeks): EDC: Hx Hx Para Hx Section SAB No 05/30/25 11:00 Active Medications Active Medications: Current Medications Generic Name Dose Route Start Last Admin Trade Name Freq PRN Reason Stop Dose Admin Lactated Ringer's 1,000 mls @ 15 mls/hr 05/31/25 07:15 05/31/25 07:34 IV 15 mls/hr .Q48H KIMI Administration PFSH Medical History Arthritis Easy bruising Gastric reflux Sleep apnea Dementia High cholesterol History of hiatal hernia History of edema Loss of hearing Wears dentures Wears glasses Bladder disease Prostate disease Non-smoker History of stress test History of echocardiogram Hypertension Cardiology follow-up encounter COVID (03/2022) Thrombocytopenia Anxiety Pulmonary embolism Vitamin B12 deficiency anemia, unspecified Vitamin B12 deficiency Depression Bilateral hearing loss Inguinal hernia Polyp of colon Calculus of gallbladder without cholecystitis without obstruction Other bursitis of knee, right knee Pill rolling tremor Polyuria Memory loss Early satiety Genetic susceptibility to other disease Dizziness PAD (peripheral artery disease) Excessive sweating Fatigue 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 (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 Pulmonary emboli Tinnitus Hiatal hernia Hyperlipidemia GERD (gastroesophageal reflux disease) Home Medications ?Medication ?Instructions ?Recorded ?Last Taken ?Type aspirin 81 mg chewable tablet 81 mg PO DAILY 11/04/16 05/30/25 History omeprazole 40 mg capsule,delayed 40 mg PO DAILY 05/20/24 History release cholecalciferol (vitamin D3) 25 125 mcg PO DAILY 05/2705/20/24 History mcg (1,000 unit) capsule lactobacillus combination no.8 3 3,000 mmu cells PO DA LATANYA 05/27/20 05/20/24 History billion cell capsule (Adult Probiotic) cyanocobalamin (vitamin B-12) 1,000 mcg PO DAILY 03/0205/20/24 History 1,000 mcg tablet (Vitamin B-12) acetaminophen 500 mg tablet 1,000 mg PO Q8 PRN fever o r pain 04/09/25 Unknown History atorvastatin 10 mg tablet 10 mg PO DAILY cholesterol # 90 tabs 04/09/25 Unknown Rx Allergy/AdvReac Type Severity Reaction Status Date / Time No Known Allergies Allergy Verified 05/31/25 07:23 Family History Father Cancer Prostate cancer Mother Anxiety and depression Surgical History S/P total left hip arthroplasty (08/13/24) History of cardiac catheterization History of transurethral resection of prostate History of repair of rotator cuff H/O hernia repair Hx of cholecystectomy History of partial knee replacement History of coronary artery stent placement (07/12/11) Social History household members: spouse Smoking Status: Never smoker alcohol intake: current alcohol intake frequency: holidays/special occasions only Alcohol type: wine substance use type: does not use caffeine: Yes Type: coffee Number of servings: 2 what type of physical activity do you participate in: none seatbelt use: always do you feel safe at home: Yes Review of Systems (Anesthesia) ROS Narrative System reviewed and no additional complaints, except as documented.
--- NOTE | 2025-05-31 08:15 | EGD_PTH ---
PATIENT: PATIENCE MERCEDES LOC: EN U#:[id number] AGE/SX: 89/M ROOM: RE05/31/[address]: Dr. Daniel Acevedo DO : 1935 BED: DIS: 05/31/2025 SPEC #: [id number] RECD: 05/31/25 10:20 STATUS: KIMMIE CATHI #: [id number] WES: 05/31/25 08:[address]: Daniel Acevedo DEPT: SURGICAL PATHOLOGY RECD BY: Kieran Palacio ENTERED: 05/31/25 13:42 SP TYPE: EGD BIOPSY MIGNON DR: Zully Iyer, SANDER MACHINE-C Tissues: A - Esophagus, NOS Procedures: Surgery Specimen Level IV HEADER OPERATION: EGD with Botox, biopsy PRE-OP DIAGNOSIS: Dysphagia TISSUE SUBMITTED: A- Distal esophagus biopsy MICROSCOPIC DIAGNOSIS A. Distal esophagus, biopsy: Squamous mucosa with up to 12 eosinophils per high power field. Columnar mucosa negative for goblet cell metaplasia. MICROSCOPIC DESCRIPTION Slides are reviewed. GROSS DESCRIPTION A. Received in fixative is one container labeled with the patient's name and designated Distal esophagus biopsy. The specimen consists of two irregular fragments of light cr soft tissue that measure 0.3 and 0.6 cm. The specimen is totally submitted in one cassette. [place] 05/31/2025 CPT:68583
--- NOTE | 2025-05-31 08:18 | PCM.HP.STD ---
HPI - General General Date of Admission: 05/31/25 Date of Service: 05/31/25 HPI Narrative PRAVIN MERCEDES, is a 89 M who presents with the Chief Complaint: dysphagia BGI established in 2021 with hx of dysphagia with esophageal dilation. On omeprazole 40 mg daily. Meat is problematic for him. 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 - Tortuous esophagus. - Abnormal esophageal motility, suspicious for esophageal spasm. - Z-line irregular, 40 cm from the incisors. Biopsied. - Moderate Schatzki ring. Dilated. - Medium-sized hiatal hernia. - A few gastric polyps. - No gross lesions in the first portion of the duodenum. EGD 03.06.24 - Benign-appearing esophageal stenosis. Dilated. - Z-line irregular, 40 cm from the incisors. Biopsied. - Small hiatal hernia. - No gross lesions in the duodenal bulb. OV 7.16.25 Pt here today for worsening dysphagia over the past 6 months. He is having trouble swallowing his pills, solids and liquids. It feels like it gets stuck in his esophagus. He does not every regurgitates his food. He will drink soda or wine to get it to go down. He feels relief after he has esophageal dilation. FOR[facility]LY [facility], [facility] Medical History Arthritis Easy bruising Gastric reflux Sleep apnea Dementia High cholesterol History of hiatal hernia History of edema Loss of hearing Wears dentures Wears glasses Bladder disease Prostate disease Non-smoker History of stress test History of echocardiogram Hypertension Cardiology follow-up encounter COVID (03/2022) Thrombocytopenia Anxiety Pulmonary embolism Vitamin B12 deficiency anemia, unspecified Vitamin B12 deficiency Depression Bilateral hearing loss Inguinal hernia Polyp of colon Calculus of gallbladder without cholecystitis without obstruction Other bursitis of knee, right knee Pill rolling tremor Polyuria Memory loss Early satiety Genetic susceptibility to other disease Dizziness PAD (peripheral artery disease) Excessive sweating Fatigue 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 Mass of cardiovascular structure (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 Pulmonary emboli Tinnitus Hiatal hernia Hyperlipidemia GERD (gastroesophageal reflux disease) Home Medications ?Medication ?Instructions ?Recorded ?Last Taken ?Type aspirin 81 mg chewable tablet 81 mg PO DAILY 11/04/16 05/30/25 History omeprazole 40 mg capsule,delayed 40 mg PO DAILY 11/04/16 05/20/24 History release cholecalciferol (vitamin D3) 25 125 mcg PO DAILY 05/27/20 05/20/24 History mcg (1,000 unit) capsule lactobacillus combination no.8 3 3,000 mmu cells PO DAILY 05/27/20 05/20/24 History billion cell capsule (Adult Probiotic) cyanocobalamin (vitamin B-12) 1,000 mcg PO DAILY 03/02/24 05/20/24 History 1,000 mcg tablet (Vitamin B-12) acetaminophen 500 mg tablet 1,000 mg PO Q8 PRN fever or pain 04/09/25 Unknown History atorvastatin 10 mg tablet 10 mg PO DAILY cholesterol #90 tabs 04/09/25 Unknown Rx Allergy/AdvReac Type Severity Reaction Status Date / Time No Known Allergies Allergy Verified 05/31/25 07:23 Family History Father Cancer Prostate cancer Mother Anxiety and depression Surgical History S/P total left hip arthroplasty (08/13/24) History of cardiac catheterization History of transurethral resection of prostate History of repair of rotator cuff H/O hernia repair Hx of cholecystectomy History of partial knee replacement History of coronary artery stent placement (07/12/11) Social History household members: spouse Smoking Status: Never smoker alcohol intake: current alcohol intake frequency: holidays/special occasions only Alcohol type: wine substance use type: does not use caffeine: Yes Type: coffee Number of servings: 2 what type of physical activity do you participate in: none seatbelt use: always do you feel safe at home: Yes ROS Constitutional Constitutional: Denies fatigue, fever(s), poor appetite, weight gain or weight loss Gastrointestinal Gastrointestinal: Denies belching, bloating, change in bowel habits, change in stool character, chewing difficulty, coffee ground emesis, constipation, cramping, diarrhea, dyspepsia, dysphagia, early satiety, excessive flatus, fecal incontinence, heartburn, hematemesis, hematochezia, hemorrhoids, loose stools, melena, nausea, odynophagia, rectal bleeding, tenesmus, vomiting or weight changes Vital Signs Vital Signs Vital Signs: 05/31/25 07:24 05/31/25 07:24 05/31/25 08:03 Temperature 98.5 F 98.5 F Temperature Source Temporal Pulse Rate 91 91 Respiratory Rate 18 18 Respiratory Pattern Normal Blood Pressure 130/73 H 130/73 H Blood Pressure Mean 92 Blood Pressure Source Monitor Blood Pressure Position Semi-Fowlers Blood Pressure Location Right Arm Pulse Ox 96 96 Oxygen Delivery Method Room Air Weight Weight: 196 lb 13.965 oz Body Mass Index (BMI) 26.6 Physical Exam Const alert, oriented x3, no apparent distress and healthy appearing General Appearance: cooperative GI normal to inspection, nondistended, normoactive bowel sounds, soft to palpation, non-tender and non-distended Percussion: normal to percussion Rectal Exam: deferred Assessment & Plan Assessment/Plan (1) Dysphagia: PLAN: Assessment and Plan Assessment and Plan (1) Dysphagia: Status: Acute Plan: Pravin is an 89 yo male pt here today for f/u regarding his dysphagia. Pt endorses having intermittent issue with swallowing every few years. Last EGD with dilation was in Mar 2024. His swallowing improved after this however he is not to the point of having issues with solids, liquids and his medications. EGD in the past has demonstrated both stenosis and abnormal esophageal motility. Per patient, Dr. Acevedo recommended he have botox during his next EGD. Pt will be scheduled for EGD with dilation and botox. He was agreeable to plan. -EGD with botox and dilation -f/u as needed
[2025-05-31] MEDS: Lactated Ringers 1,000 ML 1000 ML IV (08:37)
--- NOTE | 2025-05-31 09:03 | PCM.POST.ANE ---
Anesthesia: Postop Eval I Current Vital Signs Temperature: 97.3 F Pulse Rate: 91 Blood Pressure: 127/63 Respiratory Rate: 18 Pulse Ox: 93 Oxygen Delivery Method: Room Air Assessment Airway patent: Yes Spontaneous unlabored respirations: Yes Mental status: Asleep nausea: No Vomiting: No Anesthesia Complication: No Fluid Hydration Crystalloid volume administer (ml): 500 Total IV fluid infused: 500 Progress Note Anesthesia document: Postop Eval 1 completed: Yes
--- NOTE | 2025-05-31 09:09 | OP.EGD_ITS ---
Patient Name: Pravin Holden Procedure Date: 05/31/2025 8:22 AM Date of : 1935 Age: 89 Procedure: Upper GI endoscopy Indications: Dysphagia Providers: Daniel Acevedo DO Referring MD: Justin Zapata Medicines: Monitored Anesthesia Care Patient Profile: This is an 89 year old male. Refer to note in patient chart for documentation of history and physical. Patient has symptoms of chronic dysphagia and dysphagia with solids. Complications: No immediate complications. Procedure: Pre-Anesthesia Assessment: - Prior to the procedure, a History and Physical was performed, and patient medications and allergies were reviewed. The patient is competent. The risks and benefits of the procedure and the sedation options and risks were discussed with the patient. All questions were answered and informed consent was obtained. Patient identification and proposed procedure were verified by the physician in the pre-procedure area. Mental Status Examination: alert and oriented. Airway Examination: normal oropharyngeal airway and neck mobility. Respiratory Examination: clear to auscultation. CV Examination: normal. Prophylactic Antibiotics: The patient does not require prophylactic antibiotics. Prior Anticoagulants: The patient has taken no anticoagulant or antiplatelet agents except for NSAID medication. ASA Grade Assessment: II - A patient with mild systemic disease. After reviewing the risks and benefits, the patient was deemed in satisfactory condition to undergo the procedure. The anesthesia plan was to use monitored anesthesia care (MAC). Immediately prior to administration of medications, the patient was re-assessed for adequacy to receive sedatives. The heart rate, respiratory rate, oxygen saturations, blood pressure, adequacy of pulmonary ventilation, and response to care were monitored throughout the procedure. The physical status of the patient was re-assessed after the procedure. After obtaining informed consent, the endoscope was passed under direct vision. Throughout the procedure, the patient's blood pressure, pulse, and oxygen saturations were monitored continuously. The gastroscope was introduced through the mouth, and advanced to the second part of duodenum. The upper GI endoscopy was accomplished without difficulty. The patient tolerated the procedure well. Scope In: 8:44:48 AM Scope Out: 8:55:00 AM Total Procedure Duration Time 0 hours 10 minutes 12 seconds Findings: Abnormal motility was noted in the esophagus. The cricopharyngeus was abnormal. There are extra peristaltic waves in the esophageal body. The distal esophagus/lower esophageal sphincter is spastic, but gives up passage to the endoscope. Tertiary peristaltic waves are noted. Area was successfully injected with 100 units botulinum toxin. Non-severe esophagitis with no bleeding was found. Biopsies were taken with a cold forceps for histology. Verification of patient identification for the specimen was done. Estimated blood loss was minimal. A moderate Schatzki ring was found at the gastroesophageal junction. A guidewire was placed and the scope was withdrawn. Dilation was performed with a Savary dilator with no resistance at 57 Fr. The dilation site was examined and showed moderate improvement in luminal narrowing. A large hiatal hernia was present. No gross lesions were noted in the entire examined duodenum. Impression: - Abnormal esophageal motility. Injected with botulinum toxin. - Non-severe reflux esophagitis with no bleeding. Biopsied. - Moderate Schatzki ring. Dilated. - Large hiatal hernia. - No gross lesions in the entire examined duodenum. Recommendation: - Discharge patient to home. - Resume previous diet. - Continue present medications. Procedure Code(s): --- Professional --- 50333, Esophagogastroduodenoscopy, flexible, transoral; with insertion of guide wire followed by passage of dilator(s) through esophagus over guide wire 13155, 59, Esophagogastroduodenoscopy, flexible, transoral; with biopsy, single or multiple 27973, 59,51, Esophagogastroduodenoscopy, flexible, transoral; with directed submucosal injection(s), any substance CPT copyright 2021 [employer]. All rights reserved. The codes documented in this report are preliminary and upon pewter fabricator review may be revised to meet current compliance requirements. Daniel Acevedo DO 05/31/2025 9:08:39 AM This report has been signed electronically. Number of Addenda: 0 Note Initiated On: 05/31/2025 8:22 AM
--- NOTE | 2025-05-31 09:09 | OP.PROVAT_ITS ---
05/31/2025 Justin Zapata Re : Upper GI endoscopy procedure for Pravin Holden Dear Jaylon This procedure was performed on Saturday, May 31, 2025. My impressions and recommendations are as follows: Impressions : - Abnormal esophageal motility. Injected with botulinum toxin. - Non-severe reflux esophagitis with no bleeding. Biopsied. - Moderate Schatzki ring. Dilated. - Large hiatal hernia. - No gross lesions in the entire examined duodenum. Recommendations : - Discharge patient to home. - Resume previous diet. - Continue present medications. My findings are described in the full procedure note, which is enclosed. If I can be of further assistance, please feel free to contact me at . Sincerely, Daniel Acevedo, 05/31/2025 9:08:39 AM This report has been signed electronically.
== END 2025-05-31 10:03 | disposition home or self-care (01) ==
LOC: EN 07:01 → AC 07:02
PROVIDERS: PCP Nurse Practitioner Family; Referring Provider Nurse Practitioner Family; Visit Provider Internal Medicine Gastroenterology
PROC: 0DJ08ZZ Inspection of Upper Intestinal Tract, Via Natural or Artificial Opening Endoscopic (ICD-10-PCS; CPT 43235; principal; 2025-05-31 08:10)
DX: K22.0 Achalasia of cardia (principal); F03.90 Unspecified dementia, unspecified severity, without behavioral disturbance, psychotic disturbance, mood disturbance, and anxiety; K22.2 Esophageal obstruction; K44.9 Diaphragmatic hernia without obstruction or gangrene; Z79.82 Long term (current) use of aspirin; I10 Essential (primary) hypertension; E78.00 Pure hypercholesterolemia, unspecified; I25.10 Atherosclerotic heart disease of native coronary artery without angina pectoris; K21.00 Gastro-esophageal reflux disease with esophagitis, without bleeding; Z79.899 Other long term (current) drug therapy
CPT/HCPCS: 43248; 43239; 43236; 88305; C1769; J0585